=== PATIENT | female | born 1945 | race Caucasian/White ===

== ENCOUNTER 2020-03-21 09:32 | Outpatient (CLI) | payer MEDICARE, SELFPAY ==
--- NOTE | ~2020-03-21 | MM_ITS ---
EXAMINATION: MM screening [facility] w [facility] HISTORY: Screening mammogram TECHNIQUE: Craniocaudal and mediolateral oblique 3-D tomosynthesis images were obtained and synthetic 2-D images were generated. CAD analysis was submitted and interpreted. COMPARISON: 12/08/2018, 11/18/2017, 11/15/2016 bilateral digital screening mammogram examinations BREAST PARENCHYMAL COMPOSITION: There are scattered areas of fibroglandular density. FINDINGS: There is no evidence of suspicious mass, calcification, or architectural distortion to sugg est malignancy in either breast. There has been no suspicious interval change. IMPRESSION: 1. No mammographic evidence of malignancy. 2. Recommend routine screening mammography in one year. BI-RADS Category 1: Negative Reviewed, dictated and finalized at location A.
== END 2020-03-21 09:33 | disposition home or self-care (01) ==
LOC: ANHIMG 09:43
PROVIDERS: PCP Nurse Practitioner Family; Visit Provider Nurse Practitioner Family
DX: Z12.31 Encounter for screening mammogram for malignant neoplasm of breast (principal)
CPT/HCPCS: 77063; 77067

== ENCOUNTER 2020-06-29 10:09 | Emergency (ER) | payer MEDICARE, SELFPAY ==
--- NOTE | ~2020-06-29 | XR_ITS ---
EXAMINATION: XR toe 2nd LT min 2V EXAM DATE: 06/29/2020 10:30 INDICATION: Initial encounter following injury, with pain of the left 2nd toe. Kicked bed 3 weeks ag o, persistent pain. TECHNIQUE: Left 2nd toe frontal, lateral and oblique projections obtained and reviewed. There is n o prior study for comparison. FINDINGS: Acute closed posttraumatic fracture of the left 2nd proximal phalangeal head extending int o the proximal interphalangeal joint. There is overlying soft tissue swelling. Only about 1 mm gap be tween the fracture fragments. No other suspicious findings. IMPRESSION: Left 2nd proximal phalangeal head intra-articular fracture. Reviewed, dictated and finalized at location A.
[2020-06-29 10:21] VITALS: BP 110/74; PULSE 59; RESP 16; TEMP 36.4; O2SAT 100
--- NOTE | 2020-06-29 12:10 | ED.GENADULT ---
HPI - General Adult General Chief complaint: Extremity Injury, Lower Stated complaint: lt leg/2nd toe injury Source: patient Mode of arrival: ambulatory Limitations: no limitations History of Present Illness HPI narrative: Patient presents for evaluation of pain in the second digit of the left foot for the last 3 weeks. She indicates she stubbed her left foot against the post of her bed. She thought that her pain would decrease in a few days. She took aspirin with some improvement in her symptoms or after. She recently traveled to [place] to visit her son for a week. Upon returning home 8 days ago, she was still experiencing pain, which prompted her to seek medical evaluation today. Currently rates her pain as 4 on a scale of 1-10, without descriptive quality. No paresthesias. She believes that pain in the affected digit is causing problems with her gait. Related Data Home Medications Medication Instructions Recorded Confirmed lisinopril 06/29/20 pravastatin 06/29/20 Allergies Allergy/AdvReac Type Severity Reaction Status Date / Time NKDA Allergy Unknown Uncoded 12/15/07 12:37 NKFA Allergy Unknown Uncoded 12/14/07 18:04 Review of Systems Review of Systems: Narrative: CONSTITUTIONAL: Denies fever, chills, or sweats. EYES: Denies visual changes, redness, or discharge. ENT: Denies rhinorrhea, congestion, sore throat, or otalgia. CARDIOVASCULAR: Denies chest pain, palpitations, or edema. RESPIRATORY: Denies cough or dyspnea. GASTROINTESTINAL: Denies abdominal pain, nausea, vomiting, or diarrhea. GENITOURINARY: Denies dysuria or hematuria. SKIN: Denies rash or itching. MUSCULOSKELETAL: Denies back pain. Reports pain in the second digit left foot NEUROLOGIC: Denies headache, numbness, dizziness, or weakness. PSYCHIATRIC: Denies anxiety or depression. [facility] Past Medical History Medical History (Updated 06/29/20 @ 12:17 by Adrien Martin, DU, MARS) No pertinent past medical history Surgical History Surgical History No pertinent past surgical history Family History Family History Mother No pertinent past medical history Father No pertinent past medical history Social History Social History Smoking status: Never smoker Alcohol intake: current Alcohol use details: social Substance use: never Living arrangements: with family Gender identity (if verbalized by the patient): Female Sexual Orientation (if Verbalized by the Patient): Straight or Heterosexual Exam Narrative: Exam Narrative: GENERAL: Well-appearing, well-nourished, and in no acute distress. HEAD: Normocephalic, atraumatic. EYES: PERRLA and EOMI. ENT: Nares clear, no rhinorrhea or epistaxis. Mucous membranes moist. Oropharynx without tonsillar hypertrophy exudate or other lesions. Bilateral TMs pearly garcia nonbulging NECK: Supple. No adenopathy or masses. No carotid bruits or JVD CHEST: Clear to auscultation. No respiratory distress. No wheezes rales or rhonchi HEART: Regular rate and rhythm. No murmur heard. Normal peripheral pulses. ABDOMEN: Soft, nontender, nondistended, normal active bowel sounds. EXTREMITIES: Normal range of motion. Tenderness in proximal phalanx of 2nd digit of left foot SKIN: Warm, dry, no rash. NEURO: No focal deficits. Alert and oriented x3. PSYCH: Normal mood and affect. Course Course Emergency Course: This is a 74-year-old female who presents for evaluation of pain in the second digit of the left foot after stubbing her toe against her bed 3 weeks ago. X-ray shows fracture of the second digit left toe along the proximal phalanx that is intra-articular in nature. She had second and third digits of left foot dustin taped. She was given a postop shoe. She has crutches at home. She was advised that she needs to
== END 2020-06-29 12:34 | disposition home or self-care (01) ==
PROVIDERS: Emergency Provider Nurse Practitioner; PCP Nurse Practitioner Family
DX: S92.512A Displaced fracture of proximal phalanx of left lesser toe(s), initial encounter for closed fracture (principal); W22.03XA Walked into furniture, initial encounter; Y93.9 Activity, unspecified
CPT/HCPCS: 73660; 99214; G0463

== ENCOUNTER 2020-12-12 09:59 | Outpatient (CLI) | payer MEDICARE, SELFPAY ==
--- NOTE | ~2020-12-12 | DEXA_ITS ---
Bone Density Report Name: Carlos Hassan Age: 75 Sex: Female Ethnicity: White Date of : 1945 Indication: osteopenia; height loss; postmenopausal Referring Provider: Galindo, Lisa Zuniga Study: Bone densitometry was performed. Exam Date: December 12, 2020 Accession number: [id number] Bone Density: Region BMD T-score Z-score Classification AP Spine (L1, L2) 0.736 -2.2 -0.1 Osteopenia Femoral Neck (Left) 0.572 -2.5 -0.5 Osteoporosis Total Hip (Left) 0.674 -2.2 -0.5 Osteopenia Total Hip Bilateral Avg 0.683 -2.1 -0.5 Osteopenia Femoral Neck (Right) 0.548 -2.7 -0.7 Osteoporosis Total Hip (Right) 0.691 -2.1 -0.4 Osteopenia World Health Organization criteria for BMD impression classify patients as: Normal (T-score at or above -1.0), Osteopenia (T-score between -1.0 and -2.5), or Osteoporosis (T-score at or below -2.5). 10-year Fracture Risk: FRAX not reported because: Some T-score for Spine Total or Hip Total or Femoral Neck at or below -2.5 Previous Exams: Region Exam Age BMD T-score BMD Change BMD Change Date g/cm2 vs Baseline vs Previous AP Spine(L1, L2) 12/12/2020 75 0.736 -2.2 -0.225(-23.4%) -0.033(-4.3%)* 12/08/2018 73 0.769 -1.9 -0.192(-20.0%) 0.007(1.0%) 11/18/2017 72 0.761 -2.0 -0.199(-20.8%) -0.035(-4.3%)* 10/11/2014 69 0.796 -1.7 -0.165(-17.2%) -0.027(-3.2%)# 05/20/2012 66 0.823 -1.4 -0.138(-14.4%) -0.035(-4.1%)# 10/13/2009 64 0.858 -1.1 -0.103(-10.7%) 0.004(0.5%) 03/24/2007 61 0.854 -1.1 -0.107(-11.1%) -0.018(-2.1%) 11/24/2004 59 0.872 -1.0 -0.089(-9.3%)* 0.004(0.4%) 10/25/2002 57 0.868 -1.0 -0.093(-9.6%)* -0.093(-9.6%)* 09/15/2001 56 0.961 -0.2 Total Hip(Left) 12/12/2020 75 0.674 -2.2 -0.050(-6.9%)# -0.063(-8.6%)* 12/08/2018 73 0.737 -1.7 0.014(1.9%)# 0.023(3.3%) 11/18/2017 72 0.714 -1.9 -0.010(-1.4%)# -0.003(-0.4%) 10/11/2014 69 0.717 -1.8 -0.007(-1.0%)# 0.012(1.7%)# 05/20/2012 66 0.704 -1.9 -0.020(-2.7%)# -0.016(-2.2%)# 10/13/2009 64 0.720 -1.8 -0.004(-0.5%) 0.028(4.0%)* 03/24/2007 61 0.693 -2.0 -0.031(-4.3%)* -0.020(-2.8%) 11/24/2004 59 0.712 -1.9 -0.012(-1.6%) 0.024(3.5%) 10/25/2002 57 0.688 -2.1 -0.035(-4.9%)* -0.035(-4.9%)* 09/15/2001 56 0.724 -1.8 Total Hip(Right) 12/12/2020 75 0.691 -2.1 -0.019(-2.7%)# 0.003(0.4%) 12/08/2018 73 0.689 -2.1 -0.022(-3.1%)# 0.011(1.6%) 11/18/2017 72 0.677 -2.2 -0.033(-4.6%)# -0.031(-4.4%)* 10/11/2014 69 0.708 -1.9 -0.002(-0.3%)# 0.007(1.1%)# 05/20/2012 66 0.701 -2.0 -0.010(-1.3%)# -0.002(-0.3%)# 10/13/2009 64 0.703 -2
== END 2020-12-12 10:00 | disposition home or self-care (01) ==
LOC: ANHIMG 10:01
PROVIDERS: PCP Nurse Practitioner Family; Visit Provider Nurse Practitioner Family
DX: M85.89 Other specified disorders of bone density and structure, multiple sites (principal); M81.0 Age-related osteoporosis without current pathological fracture
CPT/HCPCS: 77080

== ENCOUNTER 2022-04-09 09:48 | Outpatient (CLI) | payer MEDICARE, SELFPAY ==
--- NOTE | ~2022-04-09 | MM_ITS ---
EXAMINATION: MM screening [facility] BI w [facility] HISTORY: Screening mammogram TECHNIQUE: Craniocaudal and mediolateral oblique 3-D tomosynthesis images were obtained and synthetic 2-D images were generated. CAD analysis was submitted and interpreted. COMPARISON: 03/21/2020, 12/08/2018, 11/18/2017 BREAST PARENCHYMAL COMPOSITION: The breasts are heterogeneously dense, which may obscure small masses . FINDINGS: There is no suspicious mass, calcification, or architectural distortion to suggest malignan cy in either breast. There has been no suspicious interval change. IMPRESSION: 1. No mammographic evidence of malignancy. 2. Recommend routine screening mammography in one year. BI-RADS Category 1: Negative Reviewed, dictated and finalized at location A.
== END 2022-04-09 09:49 | disposition home or self-care (01) ==
LOC: ANHIMG 09:50
PROVIDERS: PCP Nurse Practitioner Family; Visit Provider Nurse Practitioner Family
DX: Z12.31 Encounter for screening mammogram for malignant neoplasm of breast (principal)
CPT/HCPCS: 77063; 77067

== ENCOUNTER 2022-09-25 09:04 | Emergency (ER) | payer MEDICARE, SELFPAY ==
--- NOTE | ~2022-09-25 | XR_ITS ---
EXAMINATION: XR chest 1V portable DATE: 09/25/2022 14:09 INDICATION: Loss of smell and taste. Weakness. COVID-19 exposure. TECHNIQUE: A single frontal view of the chest was obtained. COMPARISON: Chest 2 views 11/21/2007 FINDINGS: The chest demonstrates clear lungs without pneumonia, pleural effusion, or pneumothorax. Th e heart size is normal. IMPRESSION: 1. No acute cardiopulmonary disease. Reviewed, dictated and finalized at location A. TRIPPER
[2022-09-25 09:10] VITALS: BP 143/57; PULSE 63; RESP 18; TEMP 36.5; O2SAT 100
--- NOTE | 2022-09-25 09:15 | ECG_ITS ---
Measurements Intervals [place] Rate: 59 P: 31 MT: 133 QRS: 68 QRSD: 93 T: 71 QT: 411 QTc: 410 Interpretive Statements SINUS BRADYCARDIA MINOR RV CONDUCTION ABNORMALITY BORDERLINE ECG NO PREVIOUS ECG AVAILABLE FOR COMPARISON Electronically Signed On 09-25-2022 9:54:19 [employer] OFFICER by Hammad Tse M.D.
--- NOTE | 2022-09-25 12:00 | PC.NURSE ---
patient walking around lobby of waiting room without difficulty and in no distress. patient dissatisfied at this time and at the desk due to her having to wait in the lobby. patient educated that unfortunately we do not give out wait times and that there are two areas of the ED taking patients.
--- NOTE | 2022-09-25 13:00 | PC.NURSE ---
pt taken to room 22. pt states she is upset about being here and cannot answer when asked her symptoms. states she has been to her dr for this problem and had tests. pt not sure if she can stay to wait for the dr to get here. pt contacted her who is waiting in the car. decides to stay and be seen. unsure of symptoms.
--- NOTE | 2022-09-25 13:05 | ED.GENADULT ---
HPI - General Adult General Chief complaint: Unspecified Stated complaint: not eating or sleeping. losing weight. vertigo? Time Seen by Provider: 09/25/22 13:02 History of Present Illness HPI narrative: This is 77-year-old female presenting ED after she woke up and felt dizzy. The dizziness occurred when she stood up from bed. It is reproducible when she goes from sitting to standing.The patient said she spent the holidays with her family. Many of them had a viral illnesses during that time. Patient has not felt well over the last several days and has not been eating or drinking well. She denies fever, chills, nausea, vomiting, diarrhea, chest pain, difficulty breathing, abdominal pain or urinary symptoms. She came to hospital takes she woke up and felt dizzy when she stood up. Patient's has COVID. Patient is vaccinated COVID and flu. She has no other complaints. Related Data Home Medications Medication Instructions Recorded Confirmed lisinopril 10 mg tablet 06/29/20 pravastatin 20 mg tablet 06/29/20 Allergies Allergy/AdvReac Type Severity Reaction Status Date / Time No Known Allergies Allergy Verified 09/25/22 09:15 Review of Systems Review of Systems: CONSTITUTIONAL: Denies night sweats. EYES: No eye pain ENT: Denies rhinorrhea CARDIOVASCULAR: Denies palpitations RESPIRATORY: Denies hemoptysis GASTROINTESTINAL: Denies hematemesis GENITOURINARY: Denies hematuria. SKIN: Denies rash MUSCULOSKELETAL: Denies myalgia. NEUROLOGIC: Denies weakness. PSYCHIATRIC: Denies delusions [facility] Past Medical History Medical History No pertinent past medical history Surgical History Surgical History No pertinent past surgical history Family History Family History Mother No pertinent past medical history Father No pertinent past medical history Social History Social History Smoking status: Never smoker Alcohol intake: current Alcohol use details: social Substance use: never Gender identity (if verbalized by the patient): Female Sexual Orientation (if Verbalized by the Patient): Straight or Heterosexual Course Vital Signs Vital signs: Vital Signs Temperature 97.7 F 09/25/22 09:10 Pulse Rate 63 09/25/22 09:10 Respiratory Rate 18 09/25/22 09:10 Blood Pressure 143/57 H 09/25/22 09:10 Pulse Oximetry 100 09/25/22 09:10 Oxygen Delivery Room Air 09/25/22 09:10 Temperature 97.7 F 09/25/22 09:10 Pulse Rate 63 09/25/22 09:10 Respiratory Rate 18 09/25/22 09:10 Blood Pressure 143/57 H 09/25/22 09:10 Pulse Oximetry 100 09/25/22 09:10 Oxygen Delivery Room Air 09/25/22 09:10 Medical Decision Making MDM Narrative Medical decision making narrative: This is a 77-year-old female presenting ED with dizziness upon standing. She has many sick contacts at home and has had decreased oral intake over last several days. It is likely she is dehydrated. I did offer to start an IV and give her IV fluids and obtain lab work but she refused. Viral swabs, chest x-ray and EKG have been obtained. EKG interpretation: Rhythm [sinus], Rate 59, [place] -[normal], [place] -[normal], QRS [narrow], QTC [normal], T waves -[negative for concerning inversions], ST Segments - [Negative for concerning elevations] Final interpretations: Sinus bradycardia Viral swabs are negative. Chest x-ray showed no acute cardiopulmonary process. Upon re-evaluation the patient is well-appearing with stable vital signs. Her physical exam has been unremarkable. She has been drinking water during her stay here and is no longer dizzy when she stands. The patient will be discharged with return precautions. Vital Signs Vital Signs: Vital Signs Temperature 97.7 F
[2022-09-25 14:06] LABS: Influenza A QL RT-PCR Negative (Negative); Influenza B QL RT-PCR Negative (Negative); RSV RNA, RT-PCR Negative (Negative); SARS-CoV-2 RNA PCR Negative
== END 2022-09-25 15:00 | disposition home or self-care (01) ==
PROVIDERS: Emergency Provider Emergency Medicine; PCP Nurse Practitioner Family
DX: B34.9 Viral infection, unspecified (principal); E86.0 Dehydration; Z20.822 Contact with and (suspected) exposure to COVID-19
CPT/HCPCS: 71045; 87637; 93005; 99283

== ENCOUNTER 2025-02-12 08:25 | Inpatient (IN) | payer MEDICARE, SELFPAY ==
--- NOTE | ~2025-02-12 | CT_ITS ---
CT brain wo con Ordering provider: Paula Ontiveros MD History: 79 years Female with . fall, ecchymosis R scalp . Comparison: None. Technique: CT of the head without contrast. Radiation reduction technique utilized.The dose-length pr oduct was 1210.67 mGy-cm. FINDINGS: BRAIN PARENCHYMA AND CSF SPACES: Mild leukoaraiosis and diffuse cortical atrophy. Mild atheromatous d isease. No midline shift, mass effect or hemorrhage. The brain parenchyma and CSF spaces are otherwi se normal. VISUALIZED PARANASAL SINUSES: Well aerated. MASTOIDS: Well aerated. BONES: The bones appear intact. SOFT TISSUES: Visualized nasopharynx is normal. Superficial soft tissues are normal. IMPRESSION: No acute intracranial findings. Reviewed, dictated and finalized at location A.
--- NOTE | ~2025-02-12 | CT_ITS ---
CT cervical spine wo con Ordering provider: Paula Ontiveros MD History: . fall . Comparison: None. Technique: CT of the cervical spine was performed without contrast. Sagittal and coronal reformatted images were also obtained and reviewed. Automated exposure control and iterative reconstruction sharif hnique were employed. The dose-length product was 105.54 mGy-cm. FINDINGS: VERTEBRAE: No subluxation or acute fracture. The occipital condyles are intact. DISC SPACES: Severe narrowing of the disc C3-C4, C4-C5 and C5-C6. Multilevel facet joint disease. Mul tilevel uncovertebral joint osteoarthritic changes. Multilevel narrowing of the intervertebral foramina. PARASPINOUS SOFT TISSUES: Normal. IMPRESSION: No acute osseous abnormality cervical spine. Multilevel degenerative disc disease. Reviewed, dictated and finalized at location A.
--- NOTE | ~2025-02-12 | XR_ITS ---
XR hip BI 2V w AP pelvis 02/12/2025 09:39 Indication: Status post fall. Hip pain. Procedure: AP pelvis and 2 views each hip Comparison: 04/29/2013 Findings: Pelvic rings intact. Mild osteoarthritis of the hips. There is a nondisplaced right femoral intertrochanteric fracture. No left hip fracture is identified. Sacrum is grossly unremarkable. Pelv ic rings intact. Impression: 1: Nondisplaced right femoral intertrochanteric fracture. Reviewed, dictated and finalized at location B. Impression: 1: Nondisplaced right femoral intertrochanteric fracture.
--- NOTE | ~2025-02-12 | XR_ITS ---
EXAMINATION: XR surgery orthopedic DATE: 02/13/2025 15:47 INDICATION: Right hip intertrochanteric nailing TECHNIQUE: 6 fluoroscopic images of the right hip and femur were obtained during procedure performed by Dr. Blackwood. Radiologist was not present for the imaging or procedure. The amount of fluoroscopy t susan used during this procedure was 0.6 minutes. Total DAP was 0.934 Gycm^2. COMPARISON: None. FINDINGS: Interval fixation of the previous noted intratrochanteric fracture with a long antegrade intramedulla ry matt distal metaphysis of the femur and with femoral neck dynamic compression screw and subtrochant tavon interlocking screw. Fracture remains nondisplaced in essentially anatomic alignment. Mild osteoa rthritis at the right hip. IMPRESSION: 1. Near-anatomic alignment post internal fixation of an intertrochanteric fracture the proximal right femur. See procedure note for further detail. Reviewed, dictated and finalized at location A. IMPRESSION: 1. Near-anatomic alignment post internal fixation of an intertrochanteric fract ure the proximal right femur. See procedure note for further detail.
[2025-02-12 08:26] VITALS: BP 139/43; PULSE 62; RESP 16; TEMP 36.5; O2SAT 100
--- NOTE | 2025-02-12 08:42 | ED_ITS ---
HPI - Fall General Chief Complaint: Fall Stated Complaint: fall-hip pain Time Seen by Provider: 02/12/25 08:29 Source: patient, EMS and RN notes reviewed Mode of arrival: EMS Limitations: dementia History of Present Illness HPI Narrative: Patient presents after reported he sustained tonight. She initially complained of hip pain but now can not recall which hip. It was reported that she fell on her buttocks. Unable to ambulate. History of dementia for which she is confused at baseline. EMS had POC blood glucose 94mg/dL. Not on anticoagulation. Patient unable to provide much history. She is very agitated and tearful. Crying for Aurelio as well as her mother and father. Will occasionally start sentences but then the ends of the sentences do not correlate. Related Data Home Medications ?Medication ?Instructions ?Recorded ?Confirmed ?Last Taken ?Type pravastatin 20 mg tablet 20 mg PO DAILY 06/29/20 02/12/25 02/11/25 History alendronate 70 mg tablet 70 mg PO WEEKLY 02/12/25 02/12/25 Unknown History escitalopram oxalate 20 mg tablet 20 mg PO DAILY 02/12/25 02/12/25 02/11/25 History memantine 5 mg tablet 10 mg PO DAILY 02/12/25 02/12/25 02/11/25 History mirtazapine 15 mg tablet 15 mg PO DAILY 02/12/25 02/12/25 02/11/25 History quetiapine 25 mg tablet 25 mg PO PRN PRN complex 02/12/25 02/12/25 02/11/25 History quetiapine 50 mg tablet 50 mg PO PRN PRN complex 02/12/25 02/12/25 02/11/25 History Allergies Allergy/AdvReac Type Severity Reaction Status Date / Time No Known Allergies Allergy Verified 02/12/25 14:23 [facility] Past Medical History Medical History Dementia History of colon cancer Early satiety Weight loss Surgical History Surgical History H/O left hemicolectomy Family History Family History Mother No pertinent past medical history Father No pertinent past medical history Social History Social History Smoking status: Former smoker Alcohol intake: never Alcohol use details: social Substance use: never Living arrangements: with family Additional living arrangements comments: Occupation/Education: retired Gender identity (if verbalized by the patient): Female Sexual Orientation (if Verbalized by the Patient): Straight or Heterosexual Spiritual care concerns: No Exam 2 Narrative: GENERAL: Thin, in mild acute distress. HEAD: Faintly blue along right sabianist though questionable ecchymosis versus visualization of veins through burton tissue - patient moving head too much to discern. EYES: Non injected, non icteric ENT: Nares clear, no rhinorrhea or epistaxis. NECK: Supple. CHEST: Speaking in full sentences. No respiratory distress. Lungs clear to auscultation bilaterally. HEART: Regular rate and rhythm. . ABDOMEN: Soft, nondistended. No TTP. EXTREMITIES/PELVIS: No acute bony deformity/crepitus. Pelvis stable to compression. No Tenderness to palpation of bilateral hips. SKIN: Warm, dry, no rash. NEURO: No focal deficits. Alert and oriented to self. PSYCH: Congruent mood and affect. Tearful, scared, repeatedly asking for Aurelio as well as mother and father Course Vital Signs Vital signs: Vital Signs Temperature 97.7 F 02/12/25 08:26 Pulse Rate 62 02/12/25 08:26 Respiratory Rate 16 02/12/25 08:26 Blood Pressure 139/43 L 02/12/25 08:26 Pulse Oximetry 100 02/12/25 08:26 Oxygen Delivery Room Air 02/12/25 08:26 Temperature 97.7 F 02/13/25 05:36 Pulse Rate 64 02/13/25 05:36 Respiratory Rate 19 02/13/25 05:36 Blood Pressure 134/65 02/13/25 05:36 Pulse Oximetry 99 02/13/25 05:36 Oxygen Delivery Room Air 02/12/25 20:00 MDM - Fall MDM Narrative Medical decision making narrative: Patient presents after a reported fall occurring last evening in which she reportedly fell on her buttocks. In the emergency department she is afebrile with vital signs notable for a low diastolic blood pressure. Mean arterial pressure 75 mm Hg however. Patient appears to be in a fair amount of distress secondary to her dementia and resultant confusion. It does not appear related to pain at this time although patient had been given acetaminophen. Patient continually asking for her mother, father, and Aurleio. She is praying and asking for help. For anxiolysis, a small dose of PO Ativan is ordered. Patient has an intertrochanteric fracture. Morphine and Guallpa ordered as are labs. On-call orthopedic surgeon, swapnil Garces. Spoke with ortho RIK who recommends admit to hospitalist. Normocytic anemia, stable from previous. Patient's PMH updated as best as possible but limited history at this time as she is coming from home. Will need to discuss further with . Code status unknown; will default to full code. Lab Data Attestation: I reviewed the patient's lab results. 02/13/25 05:52 02/13/25 05:52 Labs: Lab Results 02/12/25 Range/Units 09:08 WBC 9.0 (4.5-10.0) K/mm3 RBC 3.99 L (4.2-5.4) M/mm3 Hgb 11.9 L (12.0-15.0) g/dL Hct 35.4 L (37.0-47.0) % MCV 88.7 (80-100) fl MCH 29.8 (26-34) pg MCHC 33.6 (32-36) g/dl RDW 12.9 (11.5-14.5) % Plt Count 173 (150-375) k/mm3 MPV 9.9 (7.4-10.4) fl Immature Gran % (Auto) 0.4 (0-0.5) % Neut % (Auto) 83.6 H (45.5-73.1) % Lymph % (Auto) 8.3 L (18.3-44.2) % Barry % (Auto) 7.0 (2.6-8.5) % Eos % (Auto) 0.4 (0-4.4) % Baso % (Auto) 0.3 (0.2-1.2) % Lymph # (Auto) 0.75 L (0.9-3.2) K/mm3 Barry # (Auto) 0.6 (0.1-0.6) K/mm3 Eos # (Auto) 0.0 (0-0.3) K/mm3 Baso # (Auto) 0.0 (0.0-0.1) K/mm3 Abs Immat Gran (auto) 0.04 H (0.00-0.031) K/mm3 Absolute Neuts (auto) 7.5 H (1.3-6.7) K/mm3 Absolute Nucleated RBC 0.000 (0.0-0.012) K/mm3 Nucleated RBC % 0.0 (0.0-0.2) % PT 13.4 (11.1-14.7) Seconds INR 1.0 APTT 26.9 (22.3-36.8) Seconds Sodium 140 (137-145) mmol/L Potassium 3.6 (3.4-5.0) mmol/L Chloride 109 H (98-107) mmol/L Carbon Dioxide 23 (22-30) mmol/L Anion Gap 8 (4-12) mmol/L BUN 23 H (7-17) mg/dL Creatinine 0.72 (0.7-1.0) mg/dL Estim Creat Clear Calc 42 ml/min Estimated GFR > 60 (59 - ) Glucose 102 (65-110) mg/dL Calcium 9.2 (8.4-10.2) mg/dL Urine Color Yellow (Yellow) Urine Appearance Clear (Clear) Urine pH 7.0 (5.0-9.0) Ur Specific [place] 1.016 (1.001-1.035) Urine Protein Negative (Negative) mg/dL Urine Glucose (UA) Negative (Negative) mg/dL Urine Ketones Trace H (Negative) mg/dL Ur Blood (Man) Negative (Negative) Urine Nitrate Negative (Negative) Urine Bilirubin Negative (Negative) Urine Urobilinogen 0.2 (<2.0) mg/dL Leukocyte Esterase Rfl Trace H (Negative) RAMESH/UL Urine RBC 3-5 H (0-2) /hpf Urine WBC 0-5 (0-3) /hpf Ur Squamous Epith Cells None seen (Few) /hpf Urine Bacteria None seen /hpf Urine Casts 0-2 Imaging Data Attestation: I personally reviewed and interpreted this imaging study as follows: My impression: Right intertrochanteric fracture on my independent interpretation of hip/pelvis x-ray Radiologist's impression: Impressions Head CT 02/12/25 09:36 IMPRESSION: No acute intracranial findings. Cervical Spine CT 02/12/25 09:45 IMPRESSION: No acute osseous abnormality cervical spine. Multilevel degenerative disc disease. Hip/Pelvis X-Ray 02/12/25 09:46 Impression: 1: Nondisplaced right femoral intertrochanteric fracture. Discharge Plan Discharge Clinical Impression: Degenerative disc disease, cervical, Hematuria, microscopic, Normocytic anemia Fall Qualifiers: Encounter type: initial encounter Qualified Code(s): W19.XXXA - Unspecified fall, initial encounter Traumatic ecchymosis of head Qualifiers: Encounter type: initial encounter Qualified Code(s): S00.93XA - Contusion of unspecified part of head, initial encounter Closed intertrochanteric fracture of right femur Qualifiers: Encounter type: initial encounter Fracture alignment: nondisplaced Qualified Code(s): S72.144A - Nondisplaced intertrochanteric fracture of right femur, initial encounter for closed fracture Patient Disposition: Still a Patient Condition: Stable
--- OUTSIDE RECORDS SUMMARY | 2025-02-12 08:42 | XMS_ITS | Encounter Summary ---
Author Organization [facility] Address [facility] [place] [address] Care Team Providers Care Timber Management Professor Name Role Phone Gordo Harrison MD Primary Care Provider [phone] Encounter Details Date Type Department Care Team (Late Contact Info) Description 04/18/2024 avox Message Enc [facility] - [address], [address] [place] [address] [facility] Provider Updates Social History Tobacco Use Types Packs/Day Years Used Date Smoking Tobacco: Never Passive Smoke Exposure: Never Smokeless Tobacco: Never Alcohol Use Standard Drinks/Week Comments Not Currently 3.3 (1 standard drin k = 0.6 oz pure alcohol) a glass of wine or beer every once in a while PHQ-2 Answer Date Recorded Patient Health Questionnaire-2 Score 3 01/26/2024 Comments No Sex and Gender Information Value Date Recorded Sex Assigned at Not on file Legal Sex Female 3:32 PM CDT Gender Identity Not on file Sexual Orientation Not on file documented as of this encounter Plan of Treatment Upcoming Encounters Date Type Department Care Team (Late Contact Info) Description 05/30/2025 1:40 PM CDT Office Visit [facility] - [address] [place] [id number] Barry Rodriguez MD [address] [place] [id number] documented as of this encounter Visit Diagnoses Not on filedocumented in this encounter Additional Health Concerns Assessment Noted Time PHQ-9 Depression Total Score: 4 01/26/20 24 11:42 AM CDT documented as of this encounter Care Teams Timber Management Professor Relationship Specialty Start Date End Date Gordo Harrison MD [address] [id number] PCP - General INTERNAL MEDICINE 07/27/23 documented as of this encounter
--- OUTSIDE RECORDS SUMMARY | 2025-02-12 08:42 | XMS_ITS | Referral Summary ---
Author Organization [facility] Address [address] [place] [address] Care Team Providers Care Truck Safety Inspector Name Role Phone Gordo Harrison MD Primary Care Provider Ghassan Viveros MD Unavailable [phone] Beck Gruber MD Unavailable [phone] Barry Rodriguez MD Unavailable [phone] Allergies No known active allergies Medications pravastatin (PRAVACHOL) 20 mg tablet Take 20 mg by mouth daily Active cholecalciferol (VITAMIN D-3) 50,000 unit capsule Take 1 capsule (50,000 Units total) by mouth once a week Active multivitamin/ir on/folic acid (CENTRUM WOMEN ORAL) Take by mouth Active docusate sodium (COLACE) 100 mg capsuleIndicati ons:constipatio n Take 1 capsule (100 mg total) by mouth 2 (two) times a day for 7 days 14 capsule 3 Active ondansetron (ZOFRAN) 4 mg tablet Take 1 tablet (4 mg total) by mouth every 8 (eight) hours as needed for nausea or vomiting 20 tablet 3 Active Additional Information Patient not taking.Reported on 01/04/2023 acetaminophen (TYLENOL) 325 mg tablet Take 2 tablets (650 mg total) by mouth every 6 (six) hours as needed for pain Active ergocalciferol (VITAMIN D) 50,000 unit capsule Take 1 capsule (50,000 Units total) by mouth once a week 3 Active Active Problems Problem Noted Date Diagnosed Date Positive colorectal cancer screening using Colog uard test 07/12/2023 Personal history of colon cancer 03/23/2023 Encounter for screening colonoscopy 03/23/2023 Severe protein-calorie malnutrition 12/02/2022 Postoperative delirium 12/01/2022 Malignant neoplasm of sigmoid colon 10/26/2022 Assessment & Plan (01/04/2023 10:06 AM CDT): Patient has been seen by Oncology. No recommendation for further treatment. They will just follow her. Can return to diet as tolerates. No restrictions from surgical standpoint. She will call us back with any further questions or concerns. She will follow up with GI for screening colonoscopies in the future. Assessment & Plan (12/09/2022 11:44 AM CDT): We have reviewed the pathology with the patient. I will make a referral for Oncology to weigh in just to see if any further treatment would be needed. She will continue diet as tolerates. Continue to avoid heavy lifting for another few weeks. Continue bowel regimen to avoid straining. We will see her back in 4 weeks. She will call sooner if anything changes Assessment & Plan (10/26/2022 1:38 PM INDUSTRIAL HEALTH ENGINEER): We will set the patient up for staging CT scans prior to surgery. The family was concerned about the cognitive change and was wondering about a ct of the head. I will order this also in preparation for surgery. We have discussed risks and benefits of the surgery such as anastamotic leak, need for colostomy or open procedure. Final staging once pathology from resection returns as dax as no sign of metastatic disease on preop staging imaging. We have talked about length of stay in the hospital. All questions answered. Restless leg syndrome 03/11/2021 Assessment & Plan (03/11/2021 3:19 PM CDT): Ms. Carlos Hassan is a 75 y.o. female, who presents for evaluation of RLS. 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 She developed RLS symptoms in and was diagnosed last year. She already suspected she had it because her father had the same symptoms. The symptoms are uncommon, they happen every two months and include a discomfort in the legs followed by a relief after moving the legs. She did not try any medications before. In addition, she reports memory loss for recent events since last year. 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 She does not feel depressed but her son's diagnosis of Krabbe disease has had a major weight in her mood. She had meetings before with the genetic counselor in [place]. There is family history of RLS, including father. Her examination is unrevealing, except for MoCA and MMSE being low. History and examination are compatible with restless legs syndrome (RLS) and memory loss. We discussed disease pathophysiology and treatment strategies for RLS. We can check ferritin and use gabapentin as needed. Side effect, particularly sedation, was discussed in the visit. The etiology of memory loss is unclear. There is a discrepancy between her performance in the MoCA and MMSE with her high function performance at work and managing life. Mood could a contributor, but her scores in screening for anxiety and depression were normal. We discussed those findings and will check TSH and B12. Otherwise, we will continue to monitor her symptoms. Plan: 1. RLS. - Start gabapentin 100 mg in the evening as needed for RLS. Additional doses changes may be needed. - Check ferritin. 2. Memory loss. - Check vitamin B12 and TSH. - Continue to monitor symptoms. Can consider neuropsychological testing in the future. Potential medication side effects were discussed during the encounter. Memory loss 03/11/2021 Resolved Problems Problem Noted Date Diagnosed Date Resolved Date Cancer of sigmoid colon 11/29/202211/24 Positive colorectal cancer s creening using Cologuard test 09/14/2022 01/04/2023 Overview (09/14/2022): Added automatically from request for surgery [id number] Immunizations Immunization Administration Dates Next Due Influenza, Quad, Adjuvantate d, Intramuscular 07/11/2022,06/28/2021 Influenza, Quadrivalent, Hig h Dose, Preservative Free, Intrr 05/19/2020 Influenza, Quadrivalent, Spl it, Intramuscular 07/03/2017 Influenza, Trivalent, High D ose, Split, Preservative Free, Intramuscular 06/22/2021,07/18/2019,06/02/2018,08/02,07/30/2016,07/29/2015 Influenza, Trivalent, IM (MDV) 07/18/2014,2013 Influenza, Trivalent, Preser vative Free, Intramuscular 06/21/2017 Influenza, Unspecified 06/26/2022 Pfizer SARS-CoV-2 Monovalent Vaccination (12+ Yrs) PURPLE 11/28/2020,11/07/2020 Pneumococcal Conjugate PCV 13 08/14/2020 Pneumococcal Polysaccharide PPV23 11/23/2013 Tdap 02/21/2018,02/15/2018 ZOSTER Recombinant 09/24/2020 Social History Tobacco Use Types Packs/Day Years Used Date Smoking Tobacco: Never Smokeless Tobacco: Never Tobacco Cessation:Counseling Given: Not Answered Social Connection and Isolation Panel [NHANES] A nswer Date Recorded In a typical week, how many times do you talk on the phone with family, friends, or neighbors? Twice a week 12/01/2022 How often do you get together with friends or re latives? Once a week 12/01/2022 How often do you attend congregation or zoroastrian serv ices? Never 12/01/2022 Do you belong to any clubs o r organizations such as congregation groups, unions, fraternal or athletic groups, or school groups? No 12/01/2022 How often do you attend meet ings of the clubs or organizations you belong to? Never 12/01/2022 Are you , , di vorced, , never , or living with a partner? 12/01/2022 AUDIT-C Answer Date Recorded Frequency of Alcohol Consumption Not on file 08/25/2023 Q2: How many drinks containi ng alcohol do you have on a typical day when you are drinking? Patient does not drink Frequency of Binge Drinking Not on file 07/29 Overall Financial Resource Strain (CARDIA) Answe r Date Recorded How hard is it for you to pa y for the very basics like food, housing, medical care, and heating? Not hard at all 12/01/2022 Hunger Vital Sign Answer Date Recorded Within the past 12 months, y ou worried that your food would run out before you got the money to buy more. Never true 12/02/19 23 Within the past 12 months, t he food you bought just didn't last and you didn't have money to get more. Never true 12/01/2022 PRAPARE - Transportation Answer Date Re corded In the past 12 months, has l ack of transportation kept you from medical appointments or from getting medications? No 04/2023 In the past 12 months, has l ack of transportation kept you from meetings, work, or from getting things needed for daily living? No 12/01/2022 Personal Safety Answer Date Recorded Have you ever been in or are you currently in a harmful physical or emotional relationship or is someone making you feel afraid or unsafe? 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 Not on file Not on file Not on file Last Filed Vital Signs Vital Sign Reading Time Taken Comments Blood Pressure 147/60 08/26/2023 11:30 AM INDUSTRIAL HEALTH ENGINEER Pulse 57 08/26/2023 11:30 AM INDUSTRIAL HEALTH ENGINEER Temperature 37 C (98.6 F) 08/26/2023 11:30 AM INDUSTRIAL HEALTH ENGINEER Respiratory Rate 20 08/26/2023 11:30 AM INDUSTRIAL HEALTH ENGINEER Oxygen Saturation 100% 08/26/2023 11:30 AM INDUSTRIAL HEALTH ENGINEER Inhaled Oxygen Concentration - - Weight 44.9 kg (99 lb) 08/26/2023 10:20 AM INDUSTRIAL HEALTH ENGINEER Height 154.9 cm (5' 1 ) 08/26/2023 10:20 AM INDUSTRIAL HEALTH ENGINEER Body Mass Index 18.71 08/26/2023 10:20 AM INDUSTRIAL HEALTH ENGINEER Plan of Treatment Not on file Medical Devices Implanted Type Area Vocal Artist Device Identifier Shelf Expiration Date Model / Serial / Lot [employer] Weck Hem-O-Guille Ligate Nonabsorbable Cartridge Medium Large Latex Free [id number] - [id number] Implanted:Qty: 1 on 11/29/2022 by Adrien Hendrickson MD at [facility] N/A: Abdomen [employer] 08/23/2027 [id number] / / [id number] Description:2 clips implante d Procedures Procedure Name Priority Date/Time Associated Diagnosis Comments COLONOSCOPY 08/26/2023 10:11 AM INDUSTRIAL HEALTH ENGINEER from Last 3 Months or Most Recently Relevant to Health Maintenance Results * COLONOSCOPY (08/26/2023 10:11 AM INDUSTRIAL HEALTH ENGINEER) Anatomical Region Laterality Modality Other Narrative Procedure Note Ghassan Viveros MD - 08/26/2023 10:11 AM CST [facility] Patient Name: Carlos Hassan Procedure Date: 08/26/2023 10:11 AM Date of : 1945 Admit Type: Outpatient Age: 78 Gender: Female Attending MD: Ghassan Viveros M.D. Room: [facility] ENDOSCOPY ROOM 2 Note Status: Finalized Patient Profile: Refer to note in patient chart for documentation of history and physical. Procedure: Colonoscopy Indications: High risk colon cancer surveillance: Personalhistory of colon cancer, Last colonoscopy: September 2022 Referring MD: Gordo Harrison M.D. Providers: Ghassan Viveros M.D. Impression: - Hemorrhoids found on perianal exam. - Patent end-to-side colo-colonic anastomosis, characterized by healthy appearing mucosa. - The examination was otherwise normal. - No specimens collected. Recommendation: - Discharge patient to home. - Resume previous diet. - Continue present medications. - Repeat colonoscopy in 3 years for surveillance. - Return to primary care physician as previously scheduled. Medicines: Propofol per Anesthesia Complications: No immediate complications. Estimated Blood Loss: Estimated blood loss: none. Procedure: Pre-Anesthesia Assessment: - This assessment was completed [Time ofAssessment] prior to the administration of sedation. The benefits, risks and alternatives of theprocedure and sedation were discussed and informed consentwas obtained. All questions were answered. Please referto the signed informed consent document in the medical record. The bowel preparation used was Miralax via single dose instruction. The bowel preparation used was bisacodyl tablets via single dose instruction.The scope was passed under direct vision. The Pediatric Colonoscope PCF-H190L [id number] was introducedthrough the anus and advanced to the the cecum, identifiedby appendiceal orifice and ileocecal valve. The colonoscopy was performed without difficulty. The patient tolerated the procedure well. The qualityof the bowel preparation was excellent. The ileocecal valve, appendiceal orifice, and rectum were photographed. Findings: Hemorrhoids were found on perianal exam. There was evidence of a prior end-to-side colo-colonic anastomosis in the sigmoid colon. This was patent and was characterized by healthy appearing mucosa. The anastomosis was traversed. The exam was otherwise without abnormality. Electronically signed by Ghassan Viveros M.D. Ghassan Viveros M.D. 08/26/2023 10:56:55 AM Number of Addenda: 0 Note Initiated On: 08/26/2023 10:11 AM Procedure Code(s): --- Professional --- G0105, Colorectal cancer screening; colonoscopy on individual at high risk --- Technical --- G0105, Colorectal cancer screening; colonoscopy on individual at high risk Diagnosis Code(s): --- Professional --- Z98.0, Intestinal bypass and anastomosis status K64.9, Unspecified hemorrhoids Z85.038, Personal history of other malignant neoplasm of largeintestine --- Technical --- Z98.0, Intestinal bypass and anastomosis status K64.9, Unspecified hemorrhoids Z85.038, Personal history of other malignant neoplasm of largeintestine CPT copyright 2020 [employer]. All rights reserved. The codes documented in this report are preliminary and upon paramedic supervisor reviewmay be revised to meet current compliance requirements. Recognized by the [employer] for promoting quality in endoscopy Ghassan Viveros MD ENDOSCOPY PROCEDURES Final Re sult from Last 3 Months or Most Recently Relevant to Health Maintenance Insurance [facility] MEDICARE [employer] MEDICARE AET[employer] MEDICARE Advance Directives For more information, please contact: [phone] * Full Code (Latest Code Status on File) Date Activated Date Inactivated Comments 08/26/2023 10:13 AM 08/26/2023 4:03 PM * Full Code Date Activated Date Inactivated Comments 08/26/2023 10:13 AM 08/26/2023 10:13 AM * Full Code Date Activated Date Inactivated Comments 11/29/2022 12:43 PM 12/02/2022 7:42 PM * Full Code Date Activated Date Inactivated Comments 10/21/2022 10:30 AM 10/21/2022 4:32 PM * Full Code Date Activated Date Inactivated Comments 10/21/2022 10:30 AM 10/21/2022 10:30 AM Care Teams Truck Safety Inspector Relationship Specialty Start Date End Date Gordo Harrison MD [address] [place] [phone] PCP - General Internal Medicine 10/21/22 Ghassan Viveros MD [address] [place] [address] [address] [place] [address] Consulting Physician Gastroenterology 10/27/22 Beck Gruber MD [address] [place] [address] [place] [address] Medical Oncologist/Hematologi Hematology and Oncology 12/23/22 Barry Rodriguez MD [address] [place] [address] Referring Physician Neurology 04/17/24
--- OUTSIDE RECORDS SUMMARY | 2025-02-12 08:42 | XMS_ITS | Encounter Summary ---
Author Organization [facility] Address [facility] [place] [address] Care Team Providers Care Rooms Director Name Role Phone Gordo Harrison MD Primary Care Provider [phone] Encounter Details Date Type Department Care Team (Late Contact Info) Description 01/10/2025 MyChart Message Enc [facility] Neurology Speciality [address] [phone] Barry Rodriguez MD [address] [place] [phone] Letter of diagnosis and prognosis Social History Tobacco Use Types Packs/Day Years Used Date Smoking Tobacco: Never Passive Smoke Exposure: Never Smokeless Tobacco: Never Alcohol Use Standard Drinks/Week Comments Not Currently 3.3 (1 standard drin k = 0.6 oz pure alcohol) a glass of wine or beer every once in a while PHQ-2 Answer Date Recorded Patient Health Questionnaire-2 Score 1 12/24/2024 Comments No Sex and Gender Information Value Date Recorded Sex Assigned at Not on file Legal Sex Female 3:32 PM CDT Gender Identity Not on file Sexual Orientation Not on file documented as of this encounter Plan of Treatment Upcoming Encounters Date Type Department Care Team (Late Contact Info) Description 05/30/2025 1:40 PM CDT Office Visit [facility] Neurology Speciality [address] [place] [address] Barry Rodriguez MD [address] [place] [address] documented as of this encounter Visit Diagnoses Not on filedocumented in this encounter Additional Health Concerns Assessment Noted Time PHQ-9 Depression Total Score: 4 01/26/20 24 11:42 AM CDT documented as of this encounter Care Teams Rooms Director Relationship Specialty Start Date End Date Gordo Harrison MD [address] [place] [phone] PCP - General INTERNAL MEDICINE 07/27/23 documented as of this encounter
--- OUTSIDE RECORDS SUMMARY | 2025-02-12 08:42 | XMS_ITS | Encounter Summary ---
Author Organization [facility] Address [facility] [place] [address] Care Team Providers Care Repairer Pump Name Role Phone Gorod Harrison MD Primary Care Provider [phone] Encounter Details Date Type Department Care Team (Latest Contact Info) Description 01/27/2024 MyChart Message Enc [facility] Neurology Speciality [address] [phone] Barry Rodriguez MD [address] [place] [address] [facility] Social History Tobacco Use Types Packs/Day Years [...] Encounters Date Type Department Care Team (Late st Contact Info) Description 05/30/2025 1:40 PM CDT Office Visit [facility] Neurology Speciality [address] [place] [address] Barry Rodriguez MD [address] [place] [address] documented as of this encounter Visit Diagnoses Not on filedocumented in this encounter Additional Health Concerns Assessment Noted Time PHQ-9 Depression Total Score: 4 01/26/20 24 11:42 AM CDT documented as of this encounter Care Teams Repairer Pump Relationship Specialty Start Date End Date Gordo Harrison MD [address] [place] [phone] PCP - General INTERNAL MEDICINE 07/27/23 documented as of this encounter
--- OUTSIDE RECORDS SUMMARY | 2025-02-12 08:42 | XMS_ITS | Clinical Summary ---
Author Organization [facility] Address [address] [place] [address] Care Team Providers Care Experimental Physicist Name Role Phone Gordo Harrison MD Primary Care Provider Allergies Active Allergy Reactions Criticality Noted Date Comments Poison Mandy Extract Itching 10/25/2023 Medications vitamin D3, cholecalciferol, (CHOLECALCIFEROL ) 1.25 mg capsule Take 1 capsule (50,000 Units total) by mouth once a week. Active pravastatin (PRAVACHOL) 20 MG tablet Take 1 tablet (20 mg total) by mouth daily. Active escitalopram (LEXAPRO) 20 MG tablet Take 1 tablet (20 mg total) by mouth daily. 12/25/2023 Active alendronate (FOSAMAX) 70 MG tablet Take 1 tablet (70 mg total) by mouth once a week. 11/29/2023 Active mirtazapine (REMERON) 15 MG tablet Take 1 tablet (15 mg total) by mouth. 07/10/2024 Active memantine (NAMENDA) 5 MG tabletIndication s:Dementia without behavioral disturbance (CMS/HCC) Take 1 tablet (5 mg total) by mouth 2 (two) times daily. 60 tablet 11 08/14/2024 Active QUEtiapine (SEROQUEL) 25 MG tabletIndication s:Dementia without behavioral disturbance (CMS/HCC) Take 1 tablet (25 mg total) by mouth nightly as needed. 30 tablet 11 08/14/2024 Active QUEtiapine (SEROQUEL) 50 MG tabletIndication s:Agitation due to dementia (CMS/HCC) Take 1 tablet (50 mg total) by mouth nightly at bedtime. 30 tablet 11 01/28/2025 Active Active Problems Problem Noted Date Diagnosed Date Fatigue 01/26/2024 Hyperlipidemia 01/26/2024 Pain in limb 01/26/2024 Osteoarthrosis 01/26/2024 Neuropathy 01/26/2024 Pain in throat 01/26/2024 Posterior rhinorrhea 01/26/2024 Sciatica 01/26/2024 Shoulder pain 01/26/2024 Upper respiratory infection 01/26/2024 Sinusitis 01/26/2024 Inflammatory disorder of lower extremity 024 Depressive disorder 11/28/2023 Senile osteoporosis 11/28/2023 Carcinoma of colon (CMS/HCC HHS/HCC) 07/26/2023 Impaired cognition 07/26/2023 Mild neurocognitive disorder 07/26/2023 Personal history of colon cancer 03/23/2023 Severe protein-calorie malnutrition (HHS/HCC) Postoperative delirium 12/01/2022 Positive colorectal cancer screening using Colog uard test 08/31/2022 Restless leg syndrome 03/11/2021 Overview (01/26/2024): Last Assessment & Plan: Ms. Carlos Hassan is a 75 y.o. [...] meetings before with the genetic counselor in [place]. There is family history of RLS, including [...] side effects were discussed during the encounter. Strain of neck muscle 02/20/2021 Vitamin D deficiency 04/25/2020 Essential hypertension 04/01/2020 Osteopenia 11/23/2017 Menopausal symptom 10/06/2017 Resolved Problems Problem Noted Date Diagnosed Date Resolved Date Disorder of bursae of shoulder region 01/26/2024 12/24/2024 Fever 01/26/2024 12/24/2024 Hematuria 01/26/2024 12/24/2024 Encounter for screening colonoscopy 03/23/2023 01/30/2024 Family history of diabetes mellitus 03/04/2017 12/24/2024 Encounters Date Type Department Care Team Description 02/11/2025 MyChart Message [facility] - [place] [id number] [place] [address] Barry Rodriguez MD Benna's Behavior 01/29/2025 MyChart Message [facility] - [place] [address] [place] [address] Barry Rodriguez MD Diagnosis and medication 01/25/2025 MyChart Message [facility] - [place] [address] [place] [address] Barry Rodriguez MD Medication 01/25/2025 MyChart Message [facility] - [place] [id number] [facility] [address] [address] [place] [address] Barry Rodriguez MD Letter 01/10/2025 MyChart Message Enc [facility] - [place] [address] [facility] [place] [address] Barry Rodriguez MD Letter of diagnosis and prognosis 12/24/2024 2:40 PM CDT Office Visit [facility] Multispecialty Care - [address], [address] [place] [address] Barry Rodriguez MD Follow Up (Dementia) 12/24/2024 Travel from Last 3 Months Family History Medical History Relation Comments Prostate Cancer Father No Known Problems Mother Lymphoma Sister 1 Cancer Sister 2 Relation Status Comments Father Mother Alive Sister 1 Alive Sister 2 Alive Social History Tobacco Use Types Packs/Day Years Used Date Smoking Tobacco: Never Passive Smoke Exposure: Never Smokeless Tobacco: Never Tobacco Cessation:Counseling Given: Yes Alcohol Use Standard Drinks/Week Comments Not Currently [...] on file Sexual Orientation Not on file Last Filed Vital Signs Vital Sign Reading Time Taken Comments Blood Pressure 138/82 12/24/2024 2:38 PM CDT Pulse 56 12/24/2024 2:38 PM CDT Temperature 37 C (98.6 F) 12/24/2024 2:38 PM CDT Respiratory Rate 14 12/24/2024 2:38 PM CDT Oxygen Saturation 98% 12/24/2024 2:38 PM CDT Inhaled Oxygen Concentration - - Weight 45.8 kg (101 lb) 12/24/2024 2:38 PM CDT Height 154.9 cm (5' 1 ) 12/24/2024 2:38 PM CDT Body Mass Index 19.08 12/24/2024 2:38 PM CDT Plan of Treatment Upcoming Encounters Date Type Department Care Team (Late st Contact Info) Description 05/30/2025 1:40 PM CDT Office Visit [facility] - [place] [address] [facility] [address] [place] [address] Barry Rodriguez MD [address] [place] [address] Health Maintenance Due Date Last Done Comments Hepatitis C 1963 Annual Medicare Wellness Visit 2012 Dexa Scan (General) 2012 Zoster Vaccines (2 of 2) 11/19/2020 09/24/2020, 08/28 COVID-19 Vaccine ( season) 2024 07/12/2023, 06/30/2023, 03/30/2023, Additional history exists DTaP, Tdap and Td Vaccines (3 - Td or Tdap) 02/22/2028 02/21/2018, 02/15/2018 Pneumococcal Vaccine: 50+ Years Completed 08/14/2020, 11/23/2013 RSV Immunization or 60+ Years Completed 10/07/2023 PHQ-2 (Physician Archer) Completed 12/24/2024 Meningococcal B Vaccine Aged Out No l onger eligible based on patient's age to complete this topic Meningococcal Vaccine Aged Out No dax kayli eligible based on patient's age to complete this topic RSV Immunizations Under 20 Months Aged Out No longer eligible based on patient's age to complete this topic Insurance [employer] Care Teams Experimental Physicist Relationship Specialty Start Date End Date Gordo Harrison MD [address] [phone] PCP - General INTERNAL MEDICINE 07/27/23
--- OUTSIDE RECORDS SUMMARY | 2025-02-12 08:42 | XMS_ITS | Encounter Summary ---
Author Organization [facility] Address [facility] [place] [address] Care Team Providers Care Floor Winder Name Role Phone Gordo Harrison MD Primary Care Provider [phone] Encounter Details Date Type Department Care Team (Late Contact Info) Description 03/25/2024 MyChart Message Enc [facility] Neurology Speciality [address] [place] [phone] Barry Rodriguez MD [address] [place] [address] Carlos Hassan Social History Tobacco Use Types Packs/Day Years [...] Description 05/30/2025 1:40 PM CDT Office Visit [facility] Neurology Speciality [address] [place] [phone] Barry Rodriguez MD [address] [place] [address] documented as of this encounter Visit Diagnoses Not on filedocumented in this encounter Additional Health Concerns Assessment Noted Time PHQ-9 Depression Total Score: 4 01/26/20 24 11:42 AM CDT documented as of this encounter Care Teams Floor Winder Relationship Specialty Start Date End Date Gordo Harrison MD [address] [place] [phone] PCP - General INTERNAL MEDICINE 07/27/23 documented as of this encounter
--- OUTSIDE RECORDS SUMMARY | 2025-02-12 08:42 | XMS_ITS | Encounter Summary ---
Author Organization [facility] Address [facility] [place] [address] Care Team Providers Care Senior Manufacturing Supervisor Name Role Phone Gordo Harrison MD Primary Care Provider [phone] Encounter Details Date Type Department Care Team (Latest Contact Info) Description 01/25/2024 MyCL & C Groceryt Message Enc [facility] Neurology Speciality Clinic - [address] [place] [phone] Barry Rodriguez MD [address] [place] [address] Observations on Carlos Hassan by Social History Tobacco Use Types Packs/Day Years [...] on file documented as of this encounter Functional Status * Over the past 2 weeks, how often have you been bothered by any of the following problems? Question Answer Date of Assessment Author Status Little interest or pleasure in doing things Nearly every day 01/26/2024 11:42 AM CDT Jack Le MA Active Feeling down, depressed, or hopeless Not at all 01/26/2024 11:42 AM Jack Cuenca MA Active Patient Health Questionnaire-2 Score 3 01/26/2024 11:42 AM Jack Cuenca MA Active * Question Answer Date of Assessment Author Status Trouble falling or staying asleep, or sleeping too much Several days 01/26/2024 11:42 AM LONNIET Jack Le MA Active Feeling tired or having little energy Not at all 01/26/2024 11:42 AM LONNIET Jack Le MA Active Poor appetite or overeating Not at all 01/26/2024 11:42 AM Jack Cuenca MA Active Feeling bad about yourself - or that you are a failure or have let yourself or your family down Not at all 01/26/2024 11:42 AM Jack Cuenca MA Active Trouble concentrating on things, such as reading the newspaper or watching television Not at all 01/26/2024 11:42 AM LONNIET Jack Le MA Active Moving or speaking so slowly that other people could have noticed? Or the opposite - being so fidgety or restless that you have been moving around a lot more than usual. Not at all 01/26/2024 11:42 AM Jack Cuenca MA Active Thoughts that you would be better off or hurting yourself in some way Not at all 01/26/2024 11:42 AM LONNIET Jack Le MA Active Patient Health Questionnaire-9 Score 4 01/26/2024 11:42 AM CDT Jack Le MA Active documented as of this encounter Plan of Treatment Upcoming Encounters Date Type Department Care Team (Late st Contact Info) Description 05/30/2025 1:40 PM CDT Office Visit [facility]ity Clinic - [address] [place] [address] Barry Rodriguez MD [address] [place] [address] documented as of this encounter Visit Diagnoses Not on filedocumented in this encounter Care Teams Senior Manufacturing Supervisor Relationship Specialty Start Date End Date Gordo Harrison MD [address] [phone] PCP - General INTERNAL MEDICINE 07/27/23 documented as of this encounter
--- OUTSIDE RECORDS SUMMARY | 2025-02-12 08:42 | XMS_ITS | Encounter Summary ---
Author Organization [facility] Address [address] [place] [address] Care Team Providers Care Pelt Shearer Name Role Phone Gordo Harrison MD Primary Care Provider [phone] Encounter Details Date Type Department Care Team (Latest Contact Info) Description 07/05/2024 MyChart Message Enc [facility] Multispecialty Care - [facility] [address] [facility], [address] [place] [phone] Barry Rodriguez MD [address] [place], [place] [phone] Or[place]olaney Mo neuropsychological test Social History Tobacco Use Types Packs/Day Years [...] Description 05/30/2025 1:40 PM CDT Office Visit [facility] Neurology Speciality Clinic - [place] [address] [facility] [address] [place] [address] Barry Rodriguez MD [address] [place] [address] documented as of this encounter Visit Diagnoses Not on filedocumented in this encounter Additional Health Concerns Assessment Noted Time PHQ-9 Depression Total Score: 4 01/26/20 24 11:42 AM CDT documented as of this encounter Care Teams Pelt Shearer Relationship Specialty Start Date End Date Gordo Harrison MD [address] [facility] [address] [place] [address] PCP - General INTERNAL MEDICINE 07/27/23 documented as of this encounter
--- OUTSIDE RECORDS SUMMARY | 2025-02-12 08:42 | XMS_ITS | Encounter Summary ---
Author Organization [facility] Address [facility] [place] [address] Care Team Providers Care Terrazzo Installer Name Role Phone Gordo Harrison MD Primary Care Provider [phone] Encounter Details Date Type Department Care Team (Late Contact Info) Description 02/11/2025 MyChart Message Enc [facility] Neurology Speciality [address] [place] [address] [address] Barry Rodriguez MD [address] [place] [address] Carlos'marisela Behavior Social History Tobacco Use Types Packs/Day Years [...] Description 05/30/2025 1:40 PM CDT Office Visit [facility] Neurology Speciality [address] [place] [address] [place] [address] Barry Rodriguez MD [address] [place] [address] documented as of this encounter Visit Diagnoses Not on filedocumented in this encounter Additional Health Concerns Assessment Noted Time PHQ-9 Depression Total Score: 4 01/26/20 24 11:42 AM CDT documented as of this encounter Care Teams Terrazzo Installer Relationship Specialty Start Date End Date Gordo Harrison MD [address] [place] [phone] PCP - General INTERNAL MEDICINE 07/27/23 documented as of this encounter
--- OUTSIDE RECORDS SUMMARY | 2025-02-12 08:42 | XMS_ITS | Clinical Summary ---
Author Organization [facility] Address [address] [place] [address] Care Team Providers Care Regulatory Consultant Name Role Phone Gordo Harrison MD Primary Care Provider Source Comments [facility],non-owned Affiliates and Associated Physician Practices is amultiple site organization consisting of ambulatory clinics and hospital sitesin [place], [place], [place] and [place]. This disclosure is being madepursuant to the Care Everywhere program and may not contain all information available regarding this patient. Last updated 18.[facility] [employer] Social History Tobacco Use Types Packs/Day Years Used Date Smoking Tobacco: Never Assessed Comments Unknown Sex and Gender Information Value Date Recorded Sex Assigned at Not on file Legal Sex Female 8:18 AM SENIOR SALES ADMINISTRATOR Gender Identity Female 11/10/2023 8:31 AM SENIOR SALES ADMINISTRATOR Sexual Orientation Straight 11/10/2023 8: 31 AM SENIOR SALES ADMINISTRATOR Plan of Treatment Health Maintenance Due Date Last Done Comments BONE DENSITY TESTING 1945 HEPATITIS C SCREENING 08/14/1963 DTAP/TDAP/TD VACCINES (1 - Tdap) 1966 PNEUMOCOCCAL VACCINE 50+ (1 of 1 - PCV) 1997 ZOSTER VACCINE (1 of 2) 1997 Respiratory Syncytial Virus (RSV) Vaccine Pt: or over 60 yrs (1 - 1-dose 75+ series) 2022 COVID-19 VACCINE ( - 2023- season) 2024 04/13/2022, 11/28/2020, 11/07/2020 DEPRESSION SCREENING 09/26/2024 MEDICARE AWV CALENDAR YEAR 2024 INFLUENZA VACCINE (Season Ended) 2025 07/12/2023, 06/26/2022, 06/22/2021, Additional history exists HEPATITIS B VACCINE Aged Out No longe r eligible based on patient's age to complete this topic HIB VACCINE Aged Out No longer eligi ble based on patient's age to complete this topic HPV VACCINE Aged Out No longer eligi ble based on patient's age to complete this topic MENINGOCOCCAL (Group B) VACCINE SHARED DECISION-MAKING Aged Out No longer eligible based on patient's age to complete this topic MENINGOCOCCAL GROUPS A/C/Y/W VACCINE Aged Out No longer eligible based on patient's age to complete this topic Insurance [employer] MEDICARE ADV AETNA MEDICARE ADV Care Teams Regulatory Consultant Relationship Specialty Start Date End Date Harrison, Gordo T, MD [address] [place] [address] [address] [place] [address] PCP - General Internal Medicine 11/10/23
--- OUTSIDE RECORDS SUMMARY | 2025-02-12 08:42 | XMS_ITS | Encounter Summary ---
Author Organization [facility] Address [facility] [place] [address] Care Team Providers Care Automation Technician Name Role Phone Gordo Harrison MD Primary Care Provider [phone] Encounter Details Date Type Department Care Team (Late Contact Info) Description 11/03/2023 [email or web address] Message Enc [facility] - [address], [address] [place] [address] [facility], [facility] Provider results Social History Tobacco Use Types Packs/Day Years Used Date Smoking Tobacco: Never Passive Smoke Exposure: Never Smokeless Tobacco: Never Alcohol Use Standard Drinks/Week Comments Not Currently 3.3 (1 standard drin k = 0.6 oz pure alcohol) a glass of wine or beer every once in a while Comments No Sex and Gender Information Value Date Recorded Sex Assigned at Not on file Legal Sex Female 3:32 PM CDT Gender Identity Not on file Sexual Orientation Not on file documented as of this encounter Plan of Treatment Upcoming Encounters Date Type Department Care Team (Late Contact Info) Description 05/30/2025 1:40 PM CDT Office Visit [facility] - [address] [place] [id number] Barry Rodriguez MD [address] [place] [id number] documented as of this encounter Visit Diagnoses Not on filedocumented in this encounter Care Teams Automation Technician Relationship Specialty Start Date End Date Gordo Harrison MD [address] [address] PCP - General INTERNAL MEDICINE 07/27/23 documented as of this encounter
--- OUTSIDE RECORDS SUMMARY | 2025-02-12 08:42 | XMS_ITS | Clinical Summary ---
Author Organization [facility] Address [address] [place] [address] Care Team Providers Care Senior Staff Accountant Name Role Phone Gordo Harrison MD Primary Care Provider Ghassan Viveros MD Unavailable [phone] Beck Gruber MD Unavailable [phone] Barry Rodriguez MD Unavailable [phone] Allergies No known active allergies Medications pravastatin [...] changes Assessment & Plan (10/26/2022 1:38 PM HOLE DIGGER TRUCK DRIVER): We will set the patient up for [...] (09/14/2022): Added automatically from request for surgery [id number] Immunizations Immunization Administration Dates Next Due Influenza, [...] PPV23 11/23/2013 Tdap 02/21/2018,02/15/2018 ZOSTER Recombinant 09/24/2020 Surgical History Surgery Date Site/Laterality Comments COLONOSCOPY unsure COLONOSCOPY 10/21/2022 CHOLECYSTECTOMY 11/29/2022 COLECTOMY 11/24/2022 - 12/24/2022 sigmoid Medical History Medical History Date Comments Hyperlipidemia Motion sickness Cancer (HCC) colon Memory loss Family History Medical History Relation Name Comments No Known Problems Brother 1 No Known Problems Brother 2 Heart disease Father Riley Prostate cancer Father Riley Restless legs syndrome Father Riley Hypertension Mother Gsielle Breast cancer Sister 1 tanya No Known Problems Sister 2 Yeimi Krabbe disease Son 1 brain No Known Problems Son 2 raegan Relation Name Status Comments Brother 1 Alive Brother 2 Alive Father Riley (Age 90) Mother Giselle Alive Sister 1 tanya Alive Sister 2 Eyimi Alive Son 1 brain Alive Son 2 raegan Alive Social History Tobacco Use Types Packs/Day [...] week 12/01/2022 How often do you attend caodaism or jew serv ices? 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 Not on file Not on file Obstetrics History Last Filed Vital Signs Vital Sign Reading Time Taken Comments Blood Pressure 147/60 08/26/2023 11:30 AM HOLE DIGGER TRUCK DRIVER Pulse 57 08/26/2023 11:30 AM HOLE DIGGER TRUCK DRIVER Temperature 37 C (98.6 F) 08/26/2023 11:30 AM HOLE DIGGER TRUCK DRIVER Respiratory Rate 20 08/26/2023 11:30 AM HOLE DIGGER TRUCK DRIVER Oxygen Saturation 100% 08/26/2023 11:30 AM HOLE DIGGER TRUCK DRIVER Inhaled Oxygen Concentration - - Weight 44.9 kg (99 lb) 08/26/2023 10:20 AM HOLE DIGGER TRUCK DRIVER Height 154.9 cm (5' 1 ) 08/26/2023 10:20 AM HOLE DIGGER TRUCK DRIVER Body Mass Index 18.71 08/26/2023 10:20 AM HOLE DIGGER TRUCK DRIVER Plan of Treatment Health Maintenance Due Date Last Done Comments Hepatitis C Screening 1945 Hepatitis B Screening 1963 Well Visit 65+ 2012 Zoster Vaccine (2 of 2) 11/19/2020 09/24/2020 Depression Screening 03/11/2022 03/11/2021 Fall Risk Assessment 12/03/2023 12/02/2022 Covid-19 Vaccine (2023-2 5 season) 2024 07/11/2022, 04/13/2022, 04/08/2022, Additional history exists Influenza Vaccine (Season Ended) 2025 07/12/2023, 07/11/2022, 06/26/2022, Additional history exists Osteoporosis Screening-Bone Density Scan 11/30/2025 12/01/2023 DTaP/Tdap/Td Vaccine (3 - Td or Tdap) 02/22/2028 02/21/2018, 02/15/2018 Pneumococcal vaccine 65+ Completed 08/14/2020, 10/28 Colon Cancer Screening-Colonoscopy Discontinued 08/26/2023, 10/21/2022 Medical Devices Implanted Type Area Diesel Technology Instructor Device Identifier Shelf Expiration Date Model / Serial / Lot [employer] Hem-O-Guille Ligate Nonabsorbable Cartridge Medium Large Latex Free [id number] - [id number] Implanted:Qty: 1 on 11/29/2022 by Adrien Hendrickson MD at [facility] N/A: Abdomen [employer] 08/23/2027 [id number] / / [id number] Description:2 clips implante d Procedures Procedure Name Priority Date/Time Associated Diagnosis Comments COLONOSCOPY 08/26/2023 10:11 AM HOLE DIGGER TRUCK DRIVER from Last 3 Months or Most Recently Relevant to Health Maintenance Results * COLONOSCOPY (08/26/2023 10:11 AM HOLE DIGGER TRUCK DRIVER) Anatomical Region Laterality Modality Other Narrative Procedure Note Ghassan Viveros MD - 08/26/2023 10:11 AM CST [facility] Patient Name: Carlos Hassan Procedure Date: 08/26/2023 10:11 AM Date of : 1945 Admit Type: Outpatient Age: 78 Gender: Female Attending MD: Ghassan Viveros M.D. Room: [facility] ENDOSCOPY ROOM 2 Note Status: [...] under direct vision. The Pediatric Colonoscope PCF-H190L [id number] was introducedthrough the anus and advanced to [...] malignant neoplasm of largeintestine CPT copyright 2020 [employer]. All rights reserved. The codes documented in this report are preliminary and upon inpatient coder reviewmay be revised to meet current compliance requirements. Recognized by the [employer] for promoting quality in endoscopy Ghassan Viveros MD ENDOSCOPY PROCEDURES Final Re sult from Last 3 Months or Most Recently Relevant to Health Maintenance Insurance T MEDICARE AET MEDICARE AETNA MEDICARE Advance Directives For more information, please contact: [phone] * Full Code (Latest Code Status on [...] 10:30 AM 10/21/2022 10:30 AM Care Teams Senior Staff Accountant Relationship Specialty Start Date End Date Gordo Harrison MD [address] [place] [id number] PCP - General Internal Medicine 10/21/22 Ghassan Viveros MD [address] [facility] [address] [place] [address] Consulting Physician Gastroenterology 10/27/22 Beck Gruber MD [address] [facility] [address] [place] [address] Medical Oncologist/Hematologi Hematology and Oncology 12/23/22 Barry Rodriguez MD [address] [place] [address] Referring Physician Neurology 04/17/24
--- OUTSIDE RECORDS SUMMARY | 2025-02-12 08:43 | XMS_ITS | Data Portability ---
Author Organization [facility] Right[employer], Main Office Address [address] [place] [address] Assessment No assessment recorded. Plan of Treatment Reminders Order Date Submit Date Provider Last Modified By Organization Details Last Modified Time Details Appointments None recorded. Lab vitamin B12, serum [id number] [place] [address] Outpatient Lab, [address] [place], [address], 4 10:01:03 CBC w/ auto diff [email or web address] [place] [address] - Outpatient Lab, [address] [place], [address], 4 10:01:02 CMP, serum or plasma [id number] [place] [address] Outpatient Lab, [address] [place], [address], 4 10:01:03 lipid panel, serum [email or web address] [place] [address] Outpatient Lab, [address] [place], [address], 4 10:01:03 TSH, serum or plasma [email or web address] [place] [address] Outpatient Lab, [address] [place], [address], 4 10:01:03 T4, free, serum [id number] [place] [address] Outpatient Lab, [address] [place], [address], 4 10:01:03 pancreatic elastase, stool [email or web address] Outpatient Lab, [address] [place], [address], 4 16:31:19 fecal fat, quantitati ve, 72-hour stool [id number] Outpatient Lab, [address] [place], [address], 4 16:31:19 TSH, serum or plasma 2023 024 [facility] [place] Outpatient Lab, [address] [place], [address], 4 17:40:50 TSH + free T4, serum [email or web address] Outpatient Lab, [address] [place], [address], 4 16:31:19 T3, free, serum or plasma 2023 024 [facility] [place] Outpatient Lab, [address] [place], [address], 4 17:19:32 CBC w/ auto diff 2023 024 [facility] [place] Outpatient Lab, [address] [place], [address], 4 12:57:09 CMP, serum or plasma 2023 024 [facility] [place] Outpatient Lab, [address] [place], [address], 4 13:23:29 lipid panel, serum 2023 024 [facility] [place] Outpatient Lab, [address] [place], [address], 13:23:32 TSH, serum or plasma 2023 [facility] [place] Outpatient Lab, [address] [place], [address], 14:39:30 T4, free, serum 2023 [facility] [place] Outpatient Lab, [address] [place], [address], 14:23:21 Referral None recorded. Procedures None recorded. Surgeries None recorded. Imaging None recorded. Medication Orders Remeron 15 mg tablet 2023 [id number], [address] [place], [address], 17:36:02 Patient TargetsNo targets recorded. Patient Instructions Encounter Date Encounter Id Patient Instructions Last Modified By Organization Details Last Modified Time 11/29/2023 [id number] dementia rating scale-2* [email or web address] Not available 11/29/2023 14:52:35 alcohol misuse* [email or web address] Not available 11/29/2023 14:52:35 depression screening* [email or web address] Not available 11/29/2023 14:52:35 multi-dimensiona l health assessment questionnaire* [email or web address] Not available 11/29/2023 14:52:34 Personalized [facility] Plan and Screening Recommendations Advance Directives - Do you have one? Yes Advance Directives - Do we have your advance directive on file in your health record? No, please bring in a copy at your earliest convenience Primary Prevention/Intervent ion (prevents or decreases the chance of common diseases from occurring) Smoking Risk: Non Smoker Alcohol Misuse Screening: Negative Weight: Appropriate Physical activity: Need more exercise/physical activity Nutrition: Good Average Fall Risk (screened today): Low Vaccines Pneumococcal: Ordered Recommended today Recommended today, but you have declined No further needed Influenza: Your next one in the fall of this year Chronic Disease Risks Stroke: Low Risk Intermediate Risk I have no recommendations Acti ve diagnosis, Continue current treatment plan Heart Attack: Low risk Intermediate Risk I have no recommendations Acti ve diagnosis, Continue current treatment plan Clogging of the Arteries: Low risk Intermediate Risk I have no recommendations Acti ve diagnosis, Continue current treatment plan Diabetes: Low Risk I have no recommendations Secondary Prevention/Intervent ion (detects treatable diseases before they may cause symptoms, disability, or ) Breast Cancer Screening with mammogram: Your next mammogram: Ordered R ecommended today Recommended today, but you have declined Cervical/Uterine/Ova lupillo Cancer Screening: No screening necessary Osteoporosis Screening: Your next DEXA in: Ordered Recommen ded today Date Screening Last Performed: Colon Cancer Screening: Colonoscopy Date Screening Last Performed: __2022___ Eye Disease Screening: Dementia Risk: Low I have no recommendations Depression Screening: Negative [email or web address] Not available 11/29/2023 14:42:21 Medicare wellnes s evaluation risk assessment stable. Follow-up for hypertension, hyperlipidemia, carcinoma of the colon, depression. Clinically stable. Will check blood work consisting of CBC, CMP, lipid, thyroid and vitamin-D level. . Will start on some escitalopram 5 mg once daily. Instructed patient as well as her to call back in approximately 3-4 weeks to give us an update. May need to increase the dosage if not improving or continue the same dosage. Continue on current Rx follow-up in six months Portions of the record may have been created with voice recognition software. Occasional wrong-word or s ound-a-like substitutions may have occurred due to the inherent limitations of voice recognition software. Read the chart carefully and recognize, using context, where substitutions have occurred. Bone density scan [email or web address] Not available 11/29/2023 14:52:15 05/10/2024 [id number] Follow-up were weight loss etiology which is somewhat obscure although likely secondary simply poor intake. Will continue with current medication at this time. Will add some Remeron. Add some stool specimens checked for any evidence of malabsorption. Clinically stable otherwise. Will set up with GI for further evaluation she has a known history of colon cancer. Additional Orders - Directives - Recommendations 1. GI consultation for progressive weight loss Keep Appointment: Tue 01:30 PM Rivas Portions of the record may have been created with voice recognition software. Occasional wrong-word or s ound-a-like substitutions may have occurred due to the inherent limitations of voice recognition software. Read the chart carefully and recognize, using context, where substitutions have occurred. 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 Is scheduled tomorrow for neuropsychiatric testing further assess the cognitive domains. Clinically is doing well otherwise. Will continue on current Rx recheck back in approximately 4-6 weeks. Next Appointment: 6 Weeks Approximate Date: 07/24/2024 Portions of the record may have been created with voice recognition software. Occasional wrong-word or s ound-a-like substitutions may have occurred due to the inherent limitations of voice recognition software. Read the chart carefully and recognize, using context, where substitutions have occurred. [email or web address] Not available 06/12/2024 14:35:29 07/24/2024 [id number] Advancing ingrid ia, essential hypertension, hyperlipidemia and carcinoma: By history. Will continue with current Rx at this time. Has gained approximately 8 lb since last examination which is at least good. Will continue on current medications check back in six weeks. Follow Up: 6 Weeks Approximate Date: 09/04/2024 Portions of the record may have been created with voice recognition software. Occasional wrong-word or s ound-a-like substitutions may have occurred due to the inherent limitations of voice recognition software. Read the chart carefully and recognize, using context, where substitutions have occurred. [email or web address] Not available 07/24/2024 15:17:19 09/04/2024 [id number] Follow-up essent ial hypertension, hyperlipidemia as well as dementia likely Alzheimer's. Clinically stable. Has been seen by Neurology in the interim. Is doing well otherwise was placed on Namenda had problems tolerating the Aricept. Overall seems to be doing reasonably well. Will continue on current medications. Will check some baseline blood studies consisting of CBC, CMP, lipid, thyroid and B12 level. Continue on current Rx follow-up in four months Follow Up: 4 Months Approximate Date: 01/02/2025 Portions of the record may have been created with voice recognition software. Occasional wrong-word or s ound-a-like substitutions may have occurred due to the inherent limitations of voice recognition software. Read the chart carefully and recognize, using context, where substitutions have occurred. Created: Gordo Harrison M.D. 09.04.2024 01:56 PM [email or web address] Not available 09/04/2024 14:56:59 Reason for Referral None Reported. Results Created Date Observation Date Name Description Value Unit Range Abnormal Flag Note LastModifiedBy Organization Detail LastModifiedTime 12/01/19 24 12/01/2023 CBC/C OMPLE TE BLD COUNT W/DIF F white blood cells 6.6 x10'3 /uL 4.2-10 .8 Not Available [facility] (Lab) [address] [place], [address], 12/01/2023 12:57:09 12/01/19 24 12/01/2023 CBC/C OMPLE TE BLD COUNT W/DIF F red blood cells 4.30 x10'6 /uL 3.80-5 .20 Not Available [facility] (Lab) [address] [place], [address], 12/01/2023 12:57:09 12/01/19 24 12/01/2023 CBC/C OMPLE TE BLD COUNT W/DIF F hemoglobin 13.0 g/dL 12.0-1 5.6 Not Available [facility] (Lab) [address] [place], [address], 12/01/2023 12:57:09 12/01/19 24 12/01/2023 CBC/C OMPLE TE BLD COUNT W/DIF F hematocrit 39.8 % 35.7-4 5.7 Not Available [facility] (Lab) [address] [place], [address], 12/01/2023 12:57:09 12/01/19 24 12/01/2023 CBC/C OMPLE TE BLD COUNT W/DIF F mean red cell volume 92.6 fL 82.0-9 9.0 Not Available [facility] (Lab) [address] [place], [address], 12/01/2023 12:57:09 12/01/19 24 12/01/2023 CBC/C OMPLE TE BLD COUNT W/DIF F mean red cell hemoglobin 30.2 pg 27.0-3 3.0 Not Available [facility] (Lab) [address] [place], [address], 12/01/2023 12:57:09 12/01/19 24 12/01/2023 CBC/C OMPLE TE BLD COUNT W/DIF F mean RBC HGB concentratio n 32.7 g/dL 31.0-3 6.0 Not Available [facility] (Lab) [address] [place], [address], 12/01/2023 12:57:09 12/01/19 24 12/01/2023 CBC/C OMPLE TE BLD COUNT W/DIF F red cell distribution width 13.0 % 11.8-1 5.5 Not Available [facility] (Lab) [address] [place], [address], 12/01/2023 12:57:09 12/01/19 24 12/01/2023 CBC/C OMPLE TE BLD COUNT W/DIF F platelets 220 x10'3 /uL 150-40 0 Not Available [facility] (Lab) [address] [place], [address], 12/01/2023 12:57:09 12/01/19 24 12/01/2023 CBC/C OMPLE TE BLD COUNT W/DIF F mean platelet volume 10.1 fL 9.0-12 .4 Not Available [facility] (Lab) [address] [place], [address], 12/01/2023 12:57:09 12/01/19 24 12/01/2023 CBC/C OMPLE TE BLD COUNT W/DIF F neutrophils 71.8 % 39.0-7 2.0 Not Available [facility] (Lab) [address] [place], [address], 12/01/2023 12:57:09 12/01/19 24 12/01/2023 CBC/C OMPLE TE BLD COUNT W/DIF F lymphocytes 18.9 % 16.0-4 7.0 Not Available [facility] (Lab) [address] [place], [address], 12/01/2023 12:57:09 12/01/19 24 12/01/2023 CBC/C OMPLE TE BLD COUNT W/DIF F monocytes 7.0 % 5.0-12 .0 Not Available [facility] (Lab) [address] [place], [address], 12/01/2023 12:57:09 12/01/19 24 12/01/2023 CBC/C OMPLE TE BLD COUNT W/DIF F eosinophils 1.5 % 1.0-7. 0 Not Available [facility] (Lab) [address] [place], [address], 12/01/2023 12:57:09 12/01/19 24 12/01/2023 CBC/C OMPLE TE BLD COUNT W/DIF F basophils 0.5 % 0.0-2. 0 Not Available [facility] (Lab) [address] [place], [address], 12/01/2023 12:57:09 12/01/19 24 12/01/2023 CBC/C OMPLE TE BLD COUNT W/DIF F immature granulocytes 0.3 % 0.00-0 .50 Not Available [facility] (Lab) [address] [place], [address], 12/01/2023 12:57:09 12/01/19 24 12/01/2023 CBC/C OMPLE TE BLD COUNT W/DIF F neutrophils, absolute count 4.70 x10'3 /uL 1.5-8. 0 Not Available [facility] (Lab) [address] [place], [address], 12/01/2023 12:57:09 12/01/19 24 12/01/2023 CBC/C OMPLE TE BLD COUNT W/DIF F lymphocytes, absolute count 1.24 x10'3 /uL 1.07-3 .43 Not Available [facility] (Lab) [address] [place], [address], 12/01/2023 12:57:09 12/01/19 24 12/01/2023 CBC/C OMPLE TE BLD COUNT W/DIF F monocytes, absolute count 0.46 x10'3 /uL 0.29-0 .99 Not Available [facility] (Lab) [address] [place], [address], 12/01/2023 12:57:09 12/01/19 24 12/01/2023 CBC/C OMPLE TE BLD COUNT W/DIF F eosinophils, absolute count 0.10 x10'3 /uL 0.02-0 .53 Not Available [facility] (Lab) [address] [place], [address], 12/01/2023 12:57:09 12/01/19 24 12/01/2023 CBC/C OMPLE TE BLD COUNT W/DIF F basophils, absolute count 0.03 x10'3 /uL 0.01-0 .08 Not Available [facility] (Lab) [address] [place], [address], 12/01/2023 12:57:09 12/01/19 24 12/01/2023 CBC/C OMPLE TE BLD COUNT W/DIF F immature granulocytes ,absolute 0.02 x10'3 /uL 0.00-0 .05 Not Available [facility] (Lab) [address] [place], [address], 12/01/2023 12:57:09 12/01/19 24 12/01/2023 CBC/C OMPLE TE BLD COUNT W/DIF F nucleated red blood cells 0.0 % -0 Not Available [facility] (Lab) [address] [place], [address], 12/01/2023 12:57:09 12/01/19 24 12/01/2023 CBC/C OMPLE TE BLD COUNT W/DIF F NRBC# 0.00 x10'3 /uL Not Available [facility] (Lab) [address] [place], [address], 12/01/2023 12:57:09 12/01/19 24 12/01/2023 COMPR EHENS DILAN METAB OLIC PANEL sodium 138 mmol/ L 137-14 5 Not Available [facility] (Lab) [address] [place], [address], 12/01/2023 13:23:29 12/01/19 24 12/01/2023 COMPR EHENS DILAN METAB OLIC PANEL potassium 4.0 mmol/ L 3.5-5. 1 Not Available [facility] (Lab) [address] [place], [address], 12/01/2023 13:23:29 12/01/19 24 12/01/2023 COMPR EHENS DILAN METAB OLIC PANEL chloride 104 mmol/ L 98-107 Not Available [facility] (Lab) [address] [place], [address], 12/01/2023 13:23:29 12/01/19 24 12/01/2023 COMPR EHENS DILAN METAB OLIC PANEL carbon dioxide 32 mmol/ L 22-30 high Not Available [facility] (Lab) [address] [place], [address], 12/01/2023 13:23:29 12/01/19 24 12/01/2023 COMPR EHENS DILAN METAB OLIC PANEL anion gap 6.0 mmol/ L 14-22 low Not Available [facility] (Lab) [address] [place], [address], 12/01/2023 13:23:29 12/01/19 24 12/01/2023 COMPR EHENS DILAN METAB OLIC PANEL glucose 90 mg/dL 70-99 Not Available [facility] (Lab) [address] [place], [address], 12/01/2023 13:23:29 12/01/19 24 12/01/2023 COMPR EHENS DILAN METAB OLIC PANEL BUN 17 mg/dL 8-19 Not Available [facility] (Lab) [address] [place], [address], 12/01/2023 13:23:29 12/01/19 24 12/01/2023 COMPR EHENS DILAN METAB OLIC PANEL creatinine 0.63 mg/dL 0.66-1 .25 low Not Available [facility] (Lab) [address] [place], [address], 12/01/2023 13:23:29 12/01/19 24 12/01/2023 COMPR EHENS DILAN METAB OLIC PANEL GFR >60 Refer ence Range : [place] ge GFR Healt hy Adult : >60 mL/mi n/1.7 3 m2 Chron ic Kidne y Disea se: 15-60 mL/mi n/1.7 3 m2 Kidne y Failu re: <15/m L/min /1.73 m2 www.n iddk. nih.g ov The MDRD study equat ion has not been valid ated in child zhanna <18 years of age; pregn ant women ; the elder ly >85 years of age; or in some racia l or ethni c subgr oups, such as Hispa nics. Outsi de the valid ated ailyn eters , estim ated GFR is less accur ate, requi ring clini sreekanth judgm ent on a case- by-ca se basis . Clini sreekanth inter preta tion for other races and ages must be made by the clini sona. The MDRD study equat ion has not been valid ated for the evalu ation of serum creat inine relat ed to nutri karoline l statu s or medic ation usage . For perso ns <18 years of age, a pedia tric GFR calcu lator is avail able on the [facility] websi te: https :[email or web address] cabrera.[email or web address] [email or web address]/juliet ofess ional s/kdo qi/gf r_cal culat or Not Available [facility] (Lab) [address] [place], [address], 12/01/2023 13:23:29 12/01/19 24 12/01/2023 COMPR EHENS DILAN METAB OLIC PANEL alkaline phosphatase 64 U/L 38-126 Not Available [facility] (Lab) [address] [place], [address], 12/01/2023 13:23:29 12/01/19 24 12/01/2023 COMPR EHENS DILAN METAB OLIC PANEL alanine aminotransfe rase 16 U/L 0-35 Not Available [facility] (Lab) [address] [place], [address], 12/01/2023 13:23:29 12/01/19 24 12/01/2023 COMPR EHENS DILAN METAB OLIC PANEL aspartate aminotransfe rase 30 U/L 15-37 Not Available [facility] (Lab) [address] [place], [address], 12/01/2023 13:23:29 12/01/19 24 12/01/2023 COMPR EHENS DILAN METAB OLIC PANEL bilirubin, total 0.60 mg/dL 0.20-1 .30 Not Available [facility] (Lab) [address] [place], [address], 12/01/2023 13:23:29 12/01/19 24 12/01/2023 COMPR EHENS DILAN METAB OLIC PANEL calcium 9.7 mg/dL 8.4-10 .2 Not Available [facility] (Lab) [address] [place], [address], 12/01/2023 13:23:29 12/01/19 24 12/01/2023 COMPR EHENS DILAN METAB OLIC PANEL total protein 6.9 g/dL 6.3-8. 2 Not Available [facility] (Lab) [address] [place], [address], 12/01/2023 13:23:29 12/01/19 24 12/01/2023 COMPR EHENS DILAN METAB OLIC PANEL albumin 4.5 g/dL 3.0-4. 4 high Not Available [facility] (Lab) [address] [place], [address], 12/01/2023 13:23:29 12/01/19 24 12/01/2023 COMPR EHENS DILAN METAB OLIC PANEL globulin 2.4 g/dL 2.6-4. 2 low Not Available [facility] (Lab) [address] [place], [address], 12/01/2023 13:23:29 12/01/19 24 12/01/2023 COMPR EHENS DILAN METAB OLIC PANEL A/G ratio 1.9 ratio 1.0-2. 0 Not Available [facility] (Lab) [address] [place], [address], 12/01/2023 13:23:29 12/01/19 24 12/01/2023 LIPID PANEL cholesterol 215 mg/dL 140-19 9 high NIH BHARATHI NSUS RECOM MENDA TION FOR PALAK STERO L: ADULT CHILD LOW RISK: <200 <170 BORDE RLINE : <200- 239 ----- HIGH RISK: >240 >200 Not Available [facility] (Lab) [address] [place], [address], 12/01/2023 13:23:32 12/01/19 24 12/01/2023 LIPID PANEL triglyceride s 89 mg/dL 0-150 NIH BHARATHI NSUS REPOR T RECOM MENDA TION FOR TRIGL YCERI MINA: ADULT CHILD LOW RISK: <150 ----- BODER LINE: 150-1 99 ----- HIGH RISK: >200 ----- Not Available [facility] (Lab) [address] [place], [address], 12/01/2023 13:23:32 12/01/19 24 12/01/2023 LIPID PANEL HDL cholesterol 107 mg/dL 40- Not Available [facility] (Lab) [address] [place], [address], 12/01/2023 13:23:32 12/01/19 24 12/01/2023 LIPID PANEL LDL cholesterol, calculated 90 mg/dL 0-130 NIH BHARATHI NSUS REPOR T RECOM MENDA TIONS FOR LDL: ADULT CHILD LOW RISK <130 <110 (OPTI MAL LDL) <100 ----- BORDE RLINE : 130-1 59 ----- HIGH RISK: >160 >130 A TRIGL YCERI DE RESUL T >400 INVAL IDATE S THE CALCU LATIO N FOR LDL FRACT IONAT ION - THE LDL RESUL T WILL NOT BE REPOR FAUSTO. Not Available [facility] (Lab) [address] [place], [address], 12/01/2023 13:23:32 12/01/19 24 12/01/2023 T4 FREE free T4 0.82 NG/dL 0.78-2 .19 Not Available [facility] (Lab) [address] [place], [address], 12/01/2023 14:23:21 12/01/19 24 12/01/2023 TSH thyroid-stim ulating hormone 2.640 uIU/m L 0.465- 4.680 Not Available [facility] (Lab) [address] [place], [address], 12/01/2023 14:39:30 05/17/20 24 05/17/2024 T3 FREE free T3 2.5 pg/mL 2.77-5 .27 low Not Available [facility] (Lab) [address] [place], [address], 05/17/2024 17:19:32 05/17/2005/17/2024 TSH thyroid-stim ulating hormone 1.690 uIU/m L 0.465- 4.680 Not Available [facility] (Lab) [address] [place], [address], 05/17/2024 17:40:50 05/17/20 24 05/21/2024 PANCR EATIC ELAST ASE, FECAL pancreatic elastase, fecal >800 ug_el ast./ g >200 Sever e Pancr eatic Insuf ficie ncy: <100 Moder ate Pancr eatic Insuf ficie ncy: 100 - 200 Bernice l: >200 Perfo rmed at: [facility] [place] [address] [facility] , [place] [address] Lab Direc tor: Lenora josue MD, Phone : [phone] Not Available [facility] (Lab) [address] [place], [address], 05/21/2024 03:35:44 05/17/2005/21/2024 T4 FREE free T4 1.01 NG/dL 0.78-2 .19 Not Available [facility] (Lab) [address] [place], [address], 05/21/2024 21:09:45 05/17/2005/22/2024 FECAL FAT, QUANT ITATI VE fecal weight, total TNP g Test not perfo rmed. The requi red speci men for the test order ed was not recei micaela. CONTA CT:MEKHI PALACIOS NEMEI ER 2023 Not Available [facility] (Lab) [address] [place], [address], 05/22/2024 17:09:50 05/17/20 24 05/22/2024 FECAL FAT, QUANT ITATI VE fecal lipids, quantitative TNP Test not perfo rmed Perfo rmed at: [facility] [place] [address] , [place] [address] Lab Direc tor: Lenora josue MD, Phone : [phone] Not Available [facility] (Lab) [address], [place], [address], 05/22/2024 17:09:50 11/21/19 24 08/26/2023 colon oscop y proce dure (PROC ) No observ ation record ed. [email or web address] Not Available 2023 09:55:13 11/21/19 24 colon oscop y proce dure (PROC ) No observ ation record ed. Not Available 2023 09:55:13 12/01/19 24 DEXA, axial skele ton [facility] [address] [place] [address] [phone] Patien t Name: MANOLO HASSAN Access ion #: [id number] Sex: F : 1944 4 Dictat ed By: Renetta Larson Attend ing Physic chdii: CYNTHIA HARRISON CE [facility] Physic chidi: CYNTHIA HARRISON CE Exam Date: 2023 10:20 AM Exam Name: XR DEXA AXIAL/ HIP/PE LVIS/S PINE Admitt ing Diagno sis(es ): INDICA TION: Osteop orosis screen ing, postme nopaus al DEXA SCAN: BONE DENSIT Y REPORT : AP SPINE (L1-L4 ) : T Score: -2.5 LEFT FEMORA L NECK : T Score: -2.7 RT FEMORA L NECK : T Score: -2.7 LEFT HIP TOTAL : T Score: -2.9 RT HIP TOTAL : T Score: -3.1 TOTAL BILAT HIP AVG: T Score: -3.0 IMPRES BARRON: 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 ------ ------ ------ ------ ------ ------ ------ ------ ----- *FRAX versio n 3.08. Fractu re probab ility calcul ated for an untrea fausto patien t. Fractu re probab ility may be lower if the patien t has receiv ed treatm ent. T-scor e: compar acacia by meliton rodriguez deviat ion (SD) to a young adult popula tion, matche d for sex and ethnic ity (used for postme nopaus al women and men >50 years) and classi fied by WHO criter ia. -1.0: normal Page 1 [facility] [address] [place] [address] [phone] Patien t Name: MANOLO HASSAN Access ion #: [id number] Sex: F : 1944 4 Dictat ed By: Renetta Larson Attend ing Physic chidi: [facility] Physic chidi: CYNTHIA HARRISON Exam Date: 2023 10:20 AM Exam Name: XR DEXA AXIAL/ HIP/PE LVIS/S PINE Admitt ing Diagno sis(es ): <-1.0 to >-2.5: osteop enia -2.5: osteop orosis -2.5 plus fragil ity fractu re: severe osteop orosis Z-scor e: compar ed by SD to an age, sex, and ethnic ity popula tion (used for premen opausa l women, men <50 years, and childr en instea d of T-scor e WHO criter ia 4) <-2.0: below expect ed range/ low bone densit y for age, and a cause should be sought Electr onical ly Signed by: Renetta Larson at 2023 11:09: 52 AM Page 2 [email or web address] [facility] (Imaging) [address] [place], [address], 12/01/2023 14:01:33 12/01/19 24 12/01/2023 DEXA No observ ation record ed. [email or web address] [facility] [address] [facility], [place], [address], 12/01/2023 14:01:28 12/08/19 24 12/08/2023 [email or web address] nuous EEG monit oring , profgene ricketts al compo nent; 12-26 hrs, with VEEG (PROC ) No observ ation record ed. [email or web address] [id number] [address], [place], [address], 12/08/2023 16:46:29 Result Notes None recorded. Problems Name Problem SNOMED Code Status Onset Date Resolution Date Notes Provider Name and Address Organization Details Recorded Time Disorder of shoulder 108588934 Active Not Available [facility] 3 08:48:03 Family history of diabetes mellitus 863848365 Active 2016 Not Available [facility] 3 08:48:03 Pain in throat 451214323 Completed Not Available [facility] 3 08:48:03 Fibromyalg ia 497228940 Active Not Available [facility] 3 08:48:03 Menopausal symptom 51410804 Active 2017 Not Available [facility] 3 08:48:03 Sciatica 90364839 Active Not Available [facility] 3 08:48:03 Fluid level behind tympanic membrane Completed Not Available [facility] 3 08:48:03 Menopause present 967398980 Active Not Available [facility] 3 08:48:03 Osteopenia 255812251 Active 2017 Not Available [facility] 3 08:48:04 Blood in urine [id number] Completed Not Available [facility] 3 08:48:04 Vitamin D deficiency 04058859 Active 2019 Not Available [facility] 3 08:48:04 Strain of neck muscle 203857648 Active 2020 Not Available [facility] 3 08:48:04 Inflammato ry disorder of extremity 600229709 Active Not Available [facility] 3 08:48:04 Sinusitis 73453568 Completed Not Available [facility] 3 08:48:04 Neuropathy 394470480 Active Not Available [facility] 3 08:48:04 Fever 896504717 Completed Not Available [facility] 3 08:48:04 Osteoarthr itis 320471575 Active Not Available [facility] 3 08:48:05 Pain of shoulder region 84644571 Active Not Available [facility] 3 08:48:05 Upper respirator y infection 66343242 Completed Not Available [facility] 3 08:48:05 Hyperlipid emia 67679995 Active Not Available [facility] 3 08:48:05 Disorder of bursa of shoulder region 46090685 Active Not Available [facility] 3 08:48:05 Essential hypertensi on 19308222 Active 2019 Not Available [facility] 3 08:48:05 Colorectal cancer detected by DNA-based stool screening 986540198 Active 2021 Not Available [facility] 3 08:48:05 Posterior rhinorrhea 12725965 Active Not Available [facility] 3 08:48:06 Fatigue 97944782 Active Not Available [facility] 3 08:48:06 Pain in limb 20985302 Active Not Available [facility] 3 08:48:06 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 2022 Gordo Harrison MD [address], [address] [address], [place], [address] , [facility] 3 11:38:03 Carcinoma of colon 201687164 Active 2022 Gordo Harrison MD [address], [address] [address], [place], [address] , [facility] 3 11:39:16 Impaired cognition 351023202 Active 2022 Dominique scanlon, [facility] 3 12:12:23 Depressive disorder 47183161 Active 2023 Gordo Harrison MD [address], [address], [place], [address] , [facility] [employer] [facility] 4 14:47:16 Senile osteoporos is 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 Active 2023 Ruth Peter null, [facility] [employer] [facility] 4 15:04:25 Osteoporos is 01305132 Active 2023 Soo Cespedes CMA null, [facility] [employer] [facility] 4 16:21:40 Abnormal weight 41877743 Active 2023 RIO Garcia null, [facility] [employer] [facility] 4 16:26:45 Weight loss 63872310 Active 2023 Dominique Feliz null, [facility] [employer] [facility] 4 15:43:17 Dementia 60253288 Active 2023 Gordo Harrison MD [address], [place], [address] , [facility] [[employer] [facility] 4 15:12:21 Problem Notes None recorded. Procedures Surgical History Date Name Laterality Status Provider Name and Address Organization Details Recorded Time 11/29/19 24 Medicare Wellness CPT Code, subsequent completed Sarah Giordano RN [facility] [employer] [facility] 11/29/2023 14:35:44 10/21/19 23 Date of Last Colonoscopy completed Not Available [facility] 11/24/2022 08:43:41 04/08/20 22 Most Recent Mammogram completed Not Available [facility] 11/24/2022 08:43:41 12/08/19 19 Most Recent Bone Density completed Not Available [facility] 11/24/2022 08:43:41 08/26/20 15 colonoscopy completed Not Available [facility] 11/25/19 08:43:42 02/25/20 02 endometrial biopsy completed Not Available [facility] 11/24/2022 08:43:42 12/26/19 02 colonoscopy completed Not Available [facility] 11/25/19 08:43:42 Imaging Results Imaging Date Name Status LastModified by Organization Details LastModified Time 08/26/2023 colonoscopy procedure (PROC) completed [id number] Information not available 11/22/2023 09:55:13 11/21/2023 colonoscopy procedure (PROC) completed [email or web address] Information not available 11/22/2023 09:55:13 12/01/2023 DEXA, axial skeleton completed [address] (Imaging) [address] [place], [address], 12/01/2023 14:01:33 12/01/2023 DEXA completed [address] [place], [address], 12/01/2023 14:01:28 12/08/2023 continuous EEG monitoring, professional component; 12-26 hrs, with VEEG (PROC) completed [email or web address] [id number] [address] [facility] [address], [place], [address], 12/08/2023 16:46:29 Procedure Notes None recorded. Medical Equipment None Reported. Medications Name Sig Start Date Stop Date Status Note LastModified by Organization Details LastModified Time quetiapine 25 mg tablet active Not Available Not Available Not Available cyclobenzap rine 10 mg tablet Take 1 tablet 3 times a day by oral route as needed. 10/19 completed Not Available Not Available Not Available amoxicillin 500 mg capsule Take 1 capsule every 12 hours by oral route for 10 days. active Not Available Not Available No t Available azithromyci n 250 mg tablet TAKE 2 TABLETS (500 MG) BY ORAL ROUTE ONCE DAILY FOR 1 DAY THEN 1 TABLET (250 MG) BY ORAL ROUTE ONCE DAILY FOR 4 DAYS active Not Available Not Available No t Available hydrocodone 5 mg-acetamin ophen 325 mg tablet active Not Available Not Available No t Available ondansetron HCl 4 mg tablet 07/26 completed Not Available Not Available Not Available alendronate 70 mg tablet TAKE 1 TABLET BY MOUTH ONE TIME PER WEEK active Not Available Not Available No t Available tramadol 50 mg tablet TAKE 1 TO 2 TABLETS EVERY 6 HOURS NEEDED active Not Available Not Available No t Available triamcinolo ne acetonide 0.1 % topical cream 10/19 completed Not Available Not Available Not Available oxycodone-a cetaminophe n 5 mg-325 mg tablet 07/26 completed Not Available Not Available Not Available amoxicillin 875 mg tablet Take 1 tablet every 12 hours by oral route with meals for 10 days. active Not Available Not Available No t Available lorazepam 0.5 mg tablet TAKE 1 TABLET (0.5 MG TOTAL) BY MOUTH ONCE FOR 1 DOSE. TAKE 15 MIN BEFORE MRI 11/28 completed Not Available Not Available Not Available lisinopril 10 mg tablet TAKE 1 TABLET BY MOUTH EVERY DAY 11/21 completed Not Available Not Available Not Available pramipexole 0.125 mg tablet 06/21 completed Not Available Not Available Not Available diclofenac sodium 75 mg tablet,kolby yed release Take 1 tablet twice a day by oral route. active Not Available Not Available No t Available pravastatin 20 mg tablet TAKE 1 TABLET BY MOUTH EVERY DAY active Not Available Not Available No t Available lisinopril 5 mg tablet TAKE 1 TABLET BY MOUTH EVERY DAY active Not Available Not Available No t Available zolpidem 5 mg tablet TAKE 1 TABLET EVERY DAY BY ORAL ROUTE NEEDED. 10/19 completed Not Available Not Available Not Available mirtazapine 15 mg tablet TAKE 1 TABLET BY MOUTH EVERY DAY IN THE EVENING 2024 active Not Available Not Available Not Avai lable gabapentin 100 mg capsule 1 cap po nightly 10/19 completed Not Available Not Available Not Available ergocalcife rol (vitamin D2) 1,250 mcg (50,000 unit) capsule TAKE 1 CAPSULE EVERY WEEK BY ORAL ROUTE. 07/26 completed Not Available Not Available Not Available methylpredn isolone 4 mg tablets in a dose pack TAKE 6 TABLETS ON DAY 1 DIRECTED ON PACKAGE AND DECREASE BY 1 TAB EACH DAY FOR A TOTAL OF 6 DAYS 03/11 completed Not Available Not Available Not Available hydroxyzine HCl 10 mg tablet TAKE 1 TABLET BY MOUTH 3 TIMES A DAY NEEDED FOR ANXIETY 10/19 completed Not Available Not Available Not Available fluticasone propionate 50 mcg/actuati on nasal spray,suspe nsion Inhale 2 sprays every day by intranasa l route in the morning for 30 days. active Not Available Not Available No t Available escitalopra m 10 mg tablet TAKE 1 TABLET BY MOUTH EVERY DAY active Not Available Not Available No t Available escitalopra m 20 mg tablet TAKE 1 TABLET BY MOUTH EVERY DAY active Not Available Not Available No t Available memantine 5 mg tablet TAKE 1 TABLET BY MOUTH TWICE A DAY active Not Available Not Available No t Available escitalopra m 5 mg tablet TAKE 1 TABLET BY MOUTH EVERY DAY 2023 active Not Available Not Available Not Avai lable Boostrix Tdap 2.5 Lf unit-8 mcg-5 Lf/0.5 mL intramuscul ar syringe 06/02 completed Not Available Not Available Not Available melatonin 10/19 completed Not Available Not Available Not Available Vitamin D3 125 mcg (5,000 unit) tablet Take 1 tablet every day by oral route. 2023 active Not Available Not Available Not Avai lable Fluzone 1295-6225 45 mcg (15 mcg x 3)/0.5 mL intramuscul ar suspension TO BE ADMINISTE RED BY PHARMACIS T FOR IMMUNIZAT ION active Not Available Not Available No t Available Afluria 9457-0216(P F) 45 mcg (15 mcg x 3)/0.5 mL intramuscul ar syringe TO BE ADMINISTE RED BY PHARMACIS T FOR IMMUNIZAT ION active Not Available Not Available No t Available Fluvirin 6459-1654 (PF) 45 mcg(15 mcg x3)/0.5 mL intramuscul ar syringe 10/07 completed Not Available Not Available Not Available Fluzone High-Dose Quad (PF) 240 mcg/0.7 mL IM syringe 08/12 completed Not Available Not Available Not Available Vitals Date Recorded Body height Body mass index (BMI) Body weight Heart rate Body temperature Oxygen saturation Oxygen saturation in Arterial blood by Pulse oximetry Systolic blood pressure Diastolic blood pressure Provider Name and Address Organization Details Last Updated DateTime 4 156.21 cm 20.1 kg/m2 94535.9 8 g 58 /min 97 [degF] 98 % 98 % 108 mm[Hg] 60 mm[Hg] Ruth GARCIA - [facility] [a[employer] [facility] 4 14:27:50 Date Recorded Body height Body mass index (BMI) Body weight Heart rate Body temperature Oxygen saturation Oxygen saturation in Arterial blood by Pulse oximetry Systolic blood pressure Diastolic blood pressure Provider Name and Address Organization Details Last Updated DateTime 4 156.21 cm 16.5 kg/m2 77367.7 2 g 60 /min 97.6 [degF] 98 % 98 % 128 mm[Hg] 72 mm[Hg] RIO Garcia [facility] [employer] [facility] 4 16:32:23 Date Recorded Body height Body mass index (BMI) Body weight Heart rate Body temperature Oxygen saturation Oxygen saturation in Arterial blood by Pulse oximetry Systolic blood pressure Diastolic blood pressure Provider Name and Address Organization Details Last Updated DateTime 4 156.21 cm 16.5 kg/m2 08237.9 2 g 63 /min 97.8 [degF] 97 % 97 % 110 mm[Hg] 70 mm[Hg] RIO Garcia [facility] [employer] [facility] 4 14:23:05 Date Recorded Body height Body mass index (BMI) Body weight Heart rate Body temperature Oxygen saturation Oxygen saturation in Arterial blood by Pulse oximetry Systolic blood pressure Diastolic blood pressure Provider Name and Address Organization Details Last Updated DateTime 4 156.21 cm 17.9 kg/m2 07168.6 6 g 55 /min 97 [degF] 98 % 98 % 120 mm[Hg] 64 mm[Hg] Ruth Peter [facility] [employer] [facility] 4 14:58:55 Date Recorded Body height Body mass index (BMI) Body weight Heart rate Body temperature Oxygen saturation Oxygen saturation in Arterial blood by Pulse oximetry Systolic blood pressure Diastolic blood pressure Provider Name and Address Organization Details Last Updated DateTime 4 156.21 cm 17.5 kg/m2 65929.6 8 g 68 /min 97 [degF] 98 % 98 % 100 mm[Hg] 64 mm[Hg] RIO Garcia [facility] [employer] [facility] 4 14:38:20 Social History Question Answer Notes LastModified by Organizat ion Details LastModified Time Tobacco Smoking Status Former Smoker quit in 1970 Not Available [facility] 11/24/2022 08:43:25 Do You Have An Advance Directive? Yes [id number] Information not available 11/24/2022 Are You Blind Or Do You Have Difficulty Seeing? No MIGRATION.52990 78081 Information not available 11/24/2022 What Is Your Level Of Caffeine Consumption? Moderate MIGRATION.04232 55975 Information not available 11/24/2022 How Much Tobacco Do You Chew? None MIGRATION.32769 [id number] Information not available 11/24/2022 In The 14 Days Before Symptom Onset, Have You Had Close Contact With A Laboratory-confi rmed COVID-19 While That Case Was Ill? No MIGRATION.45979 19594 Information not available 11/24/2022 In The 14 Days Before Symptom Onset, Have You Had Close Contact With A Person Who Is Under Investigation For COVID-19 While That Person Was Ill? No MIGRATION.98691 90249 Information not available 11/24/2022 Are You Deaf Or Do You Have Serious Difficulty Hearing? No MIGRATION.30984 22910 Information not available 11/24/2022 What Type Of Diet Are You Following? REGULAR MIGRATION.97615 78508 Information not available 11/24/2022 Which Illicit Or Recreational Drugs Have You Used? None MIGRATION.92943 99721 Information not available 11/24/2022 What Is The Highest Grade Or Level Of School You Have Completed Or The Highest Degree You Have Received? [id number] 2 Years MIGRATION.75489 54004 Information not available 11/24/2022 Have There Been Any Changes To Your Family Or Social Situation? No MIGRATION.73934 72050 Information not available 11/24/2022 What Is The Fluoride Status Of Your Home? Unknown MIGRATION.71646 34974 Information not available 11/24/2022 Do You Use Insect Repellent Routinely? Yes MIGRATION.31221 28789 Information not available 11/24/2022 Where Do You Live? [facility] [email or web address] Information not available 11/29/2023 Are You Able To Care For Yourself? Yes [email or web address] Information not available 11/29/2023 Are You Blind Or Do Yo Have Difficulty Seeing? No [email or web address] Information not available 11/29/2023 Are You Deaf Or Do You Have Serious Difficulty Hearing? No Information not available 11/29/2023 Live Alone Of With Others? With Others [email or web address] Information not available 11/29/2023 Do You Have A Medical Power Of Senior Linux Systems Engineer? Yes Information not available 11/29/2023 What Was The Date Of Your Most Recent Tobacco Screening? 11/29/2023 [email or web address] Information not available 11/29/2023 Do You Have Any Pets? No [email or web address] Information not available 11/29/2023 What Is Your Relationship Status? MIGRATION.97877 38398 Information not available 11/24/2022 Do You Use Your Seat Belt Or Car Seat Routinely? Yes MIGRATION.35196 45277 Information not available 11/24/2022 Do You Have Smoke And Carbon Monoxide Detectors In Your Home? Yes MIGRATION.98625 18933 Information not available 11/24/2022 At What Age Did You Start Smoking Tobacco? 20 MIGRATION.29736 86523 Information not available 11/24/2022 Do You Participate In Social Media? Yes MIGRATION.21805 76725 Information not available 11/24/2022 Do You Use Sunscreen Routinely? Yes MIGRATION.83806 17524 Information not available 11/24/2022 Has Tobacco Cessation Counseling Been Provided? No MIGRATION.84468 90354 Information not available 11/24/2022 Do You Have Difficulty Walking Or Climbing Stairs? No MIGRATION.34458 62080 Information not available 11/24/2022 Are You Currently In School? No MIGRATION.27525 91550 Information not available 11/24/2022 Do You Have Any Dietary Restrictions? No MIGRATION.46214 84350 Information not available 11/24/2022 Sex: Female Functional Status Question Answer Note LastModified by Organizat ion Details LastModified Time What is your level of alcohol consumption? Occasional MIGRATION.[id number] 7343 Information not available 11/24/2022 Do you have transportation difficulties? No MIGRATION.120349 3629 Information not available 11/24/2022 Are you able to walk? YESWOREST MIGRATION.512863 5695 Information not available 11/24/2022 Do you have difficulty doing errands alone? No MIGRATION.386532 9469 Information not available 11/24/2022 Are you able to care for yourself? 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 No MIGRATION.604953 0366 Information not available 11/24/2022 Do you or have you ever used e-cigarettes or vape? Never used electronic cigarettes MIGRATION.847671 1440 Information not available 11/24/2022 What is your exercise level? Moderate walks MIGRATION.252989 4146 Information not available 11/24/2022 Mental Status Question Answer Note LastModified by Organizat ion Details LastModified Time Do you feel stressed (tense, restless, nervous, or anxious, or unable to sleep at night)? [id number] MIGRATION.[id number] 26 Information not available 11/24/2022 Do you have difficulty concentrating, remembering or making decisions? No MIGRATION.[id number] 26 Information not available 11/24/2022 Family History Relationship Description Onset Age of this Age Resolved Age Notes LastModified by Organization Details LastModified Time Father Congestive heart failure Mother Living 97 in good health Father deceas ed 90 with CAD, CABG, CHF and Ca prosta te Two brothe rs both living one with esopha geal cyst and the other in good health . Two sister s both living one with non-Ho dgkin' s Lympho ma the other good health [email or web address] Not available 07/26/2023 11:38:30 Father Diabetes mellitus [id number] Not available 11/24/2022 08:43:43 Mother Diabetes mellitus [id number].[id number] Not available 11/24/2022 08:43:43 Medical History Condition Response BLINDNESS N NERVE DISEASE N RHEUMATIC FEVER N BLADDER PROBLEMS N KIDNEY STONES N MRSA N OTHER # 1 N POLIO N LUNG DISEASE/DISORDER N HISTORY OF DRUG ABUSE N RADIATION / CHEMOTHERAPY N COPD N Other # 2 N BLOOD DISEASES N EAR OR HEARING PROBLEMS N MUMPS N SHINGLES N BOWEL PROBLEMS N DEPRESSION (INCLUDING POST ) N STROKE/TIA N ULCERS N BENIGN PROSTATIC HYPERPLASIA N MEASLES N HYPOTENSION N MYOCARDIAL INFARCTION N OBESITY N GERD/NAUSEA N ANEURYSM N URINARY/BLADDER/KIDNEY PROBLEMS N CORONARY ARTERY DISEASE (CAD) N ADDICTION CONCERNS N Impotence N ENDOMETRIOSIS N USE OF BLOOD THINNERS N SKIN PROBLEMS N GASTROINTESTINAL DISORDER N PERIPHERAL VASCULAR DISEASE N MUSCLE,JOINT OR BONE PROBLEMS N GASTROINTESTINAL BLEEDING N BLOOD CLOTS N ASTHMA N CATARACTS N ERECTILE DYSFUNCTION N VARICOSITIES N GI PROBLEMS N Low Testosterone N INFERTILITY N AIDS/HIV N CHEMOTHERAPY / RADIATION N LIVER DISEASE N MALE HYPOGONADISM N HYPERTENSION N Deficiency N TOURETTE'S N ANXIETY DISORDER N BLOOD TRANSFUSION N ANEMIA/BLOOD DISORDER N CHRONIC EAR INFECTIONS N BRONCHITIS N TUBERCULOSIS N GLAUCOMA N FOOT PROBLEM N DIVERTICULITIS N SLEEP APNEA N CHICKENPOX N INFECTIOUS DISEASE N PROSTATE N HEART ARRHYTHMIA N INSOMNIA N HIGH CHOLESTEROL / HYPERLIPIDEMIA N EYE PROBLEMS N HYPERTHYROIDISM N EDEMA N CHRONIC PAIN SYNDROME N HYPOTHYROIDISM N CAROTID BLOCKAGE N CONSTIPATION N BACK / NECK PROBLEMS N HAVE YOU BEEN HOSPITALIZED OR SEEN IN [facility] IN THE PAST YEAR ? N ATHEROSCLEROSIS N BREAST PROBLEMS N DIALYSIS N ECZEMA N OSTEOPOROSIS N ARTHRITIS N NO SIGNIFICANT PAST MEDICAL HISTORY N APPENDICITIS N DIABETES, TYPE N BAD TEETH N ENT N HEARTBURN / REFLUX N AUTISM SPECTRUM DISORDER (ASD) N HEPATITIS / LIVER DISEASE N GOUT N SLEEP DISORDER N ALZHEIMER'S DISEASE N Brain Problems N DEMENTIA N HERPES N SEIZURES/EPILEPSY N HEADACHES/MIGRAINES N VASCULAR DISEASE N PACEMAKER N Blood Disorder N DIZZINESS N HEART DISEASE/HEART PROBLEMS N KIDNEY DISEASE N MULTIPLE SCLEROSIS N CANCER: SPECIFY N CARDIAC ARRHYTHMIA N ATRIAL FIBRILLATION N Gall Stones N PULMONARY EMBOLISM N AUTOIMMUNE DISEASE N Gynecological History Statement/Question Response Date of Last Mammogram 03/21/2020 Date of Last Colonoscopy 10/21/2022 Most Recent Mammogram 04/08/2022 Date of LMP Most Recent Bone Density 12/07/2018 Obstetrics History GPAL:G 3 P 2 0 1 0 Type Value Full Term 2 Spontaneous 1 Total 3 Immunizations Vaccine Type Date Status Note Provider Nam e and Address Organization Details Recorded Time SARS-COV-2 (COVID-19) vaccine, UNSPECIFIED 3 completed Ruth Peter Fwd: [employer] [place] [employer] [facility] [employer] 07/26/2023 11:24:36 influenza, unspecified formulation 3 completed Ruth scanlon 20:20 [employer] [facility] [employer] 07/26/2023 11:24:55 influenza, unspecified formulation 2 completed Not Available [facility] 11/24/2022 08:52:23 COVID-19, mRNA, LNP-S, PF, 100 mcg/0.5mL dose or 50 mcg/0.25mL dose 2 completed Not Available [facility] 11/24/2022 08:52:23 Influenza, high-dose, trivalent, PF 1 completed Not Available [facility] 11/24/2022 08:52:23 zoster, unspecified formulation 0 completed Not Available [facility] 11/24/2022 08:52:24 Influenza, high-dose, quadrivalent, PF 0 completed Not Available [facility] 11/24/2022 08:52:24 Tdap 8 completed Not Available [facility] 11/24/2022 08:52:24 Influenza, split virus, quadrivalent, preservative 7 completed Not Available [facility] 11/24/2022 08:52:24 Influenza, high-dose, trivalent, PF 6 completed Not Available [facility] 11/24/2022 08:52:24 Influenza, split virus, trivalent, preservative 4 completed Not Available [facility] 11/24/2022 08:52:24 Influenza, split virus, trivalent, preservative 4 completed Not Available [facility] 11/24/2022 08:52:24 Pneumococcal conjugate PCV 13 0 completed Not Available [facility] 11/24/2022 08:52:24 Influenza, high-dose, trivalent, PF 9 completed Not Available [facility] 11/24/2022 08:52:25 Influenza, high-dose, trivalent, PF 8 completed Not Available [facility] 11/24/2022 08:52:25 Tdap 8 completed Not Available [facility] 11/24/2022 08:52:25 Influenza, high-dose, trivalent, PF 6 completed Not Available [facility] 11/24/2022 08:52:25 Influenza, high-dose, trivalent, PF 5 completed Not Available [facility] 11/24/2022 08:52:25 pneumococcal polysaccharide PPV23 4 completed Not Available [facility] 11/24/2022 08:52:25 Past Encounters Encounter ID Performer Location Encounter Start Date Encounter Closed Date Diagnosis/Indication Diagnosis SNOMED-CT Code Diagnosis ICD10 Code Diagnosis Note [id number] Crow Rowe MD Francisco_[address] [address] 02/20/2021 00:00:00 02/20/2021 14:26:02 [id number] Crow Rowe MD [facility] [address] [place] [id number] 1 08/25/2021 00:00:00 08/26/2021 16:54:12 [id number] Crow Rowe MD [facility] [address] [place] [id number] 1 11/17/2021 00:00:00 11/17/2021 12:01:11 [id number] Crow Rowe MD [address] [address] 03/11/2022 00:00:00 03/11/2022 17:32:22 [id number] Lisa Medley NP [address] [address] 04/30/2022 00:00:00 04/30/2022 09:53:36 [id number] Lisa Medley NP [address] [id number] 05/12/2022 00:00:00 05/12/2022 17:12:34 [id number] Crow Rowe MD [address] [address] 08/13/2022 00:00:00 08/13/2022 11:13:42 [id number] Gordo Harrison MD [facility] Internal Med [place] [facility]ly [facility] [place] [address] [address] 10/19/2022 00:00:00 10/19/2022 15:11:10 [id number] Gordo Harrison MD [facility] [place] [facility] [place] [address] [address] 07/26/2023 11:17:46 07/26/2023 11:55:05 Essential hypertension 85446779 I10 Hyperlipidemia 45488137 E78.5 Carcinoma of colon 62256 3000 C18.9 Mild neuro cognitive disorder 185794287 G31.84 [id number] Gordo Harrison MD [facility] Internal Med [place] [address] [place] [address] y , [place] [address] 11/29/2023 14:27:04 11/30/2023 08:32:51 Adult health examination [id number] Z00.00 Screening for disorder 306573600 Z13.9 Essential hypertension 45960941 I10 Hyperlipidemia 45924587 E78.5 Carcinoma of colon 40383 3000 C18.9 Depressive disorder 3548 9007 F32.A Vitamin D deficiency 347 66671 E55.9 [id number] Gordo Harrison MD [facility] Internal Med [place] [address] [place] [address] [place] [address] 05/10/2024 16:22:03 05/10/2024 17:40:20 Abnormal weight 32754944 R63.4 Essential hypertension 06180259 I10 Hyperlipidemia 05331996 E78.5 Carcinoma of colon 43108 3000 C18.9 [id number] Gordo Harrison MD [facility] Internal Med [place] [address] [place] [address] [place] [address] 06/12/2024 14:14:58 06/12/2024 14:39:54 Depressive disorder 36046964 F32.A Carcinoma of colon 24014 3000 C18.9 Hyperlipidemia 81840253 E78.5 [id number] Gordo Harrison MD [facility] Internal Med [place] [address] [place] [address] [address] [place] [address] 07/24/2024 14:46:36 07/24/2024 15:33:37 Carcinoma of colon 113109913 C18.9 Essential hypertension 01464645 I10 Hyperlipidemia 25611636 E78.5 Dementia 67388425 F03.90 [id number] Gordo Harrison MD [facility] [place] [address] [facility] [address] [place] [address] 09/04/2024 14:28:57 09/04/2024 15:17:23 Essential hypertension 28257805 I10 Hyperlipidemia 11970063 E78.5 Dementia 07618738 F03.90 Health Concerns Section Related Observation LastModified by Organization Detai ls LastModified Time None Recorded Concern Status LastModified by Organization Details LastModified Time None Recorded Advance Directives Directive Y: Payers Encounter Date Sequence Insurance Name Policy Number Policy Capellan Covered Member ID Capellan Member ID Guarantor Name 11/29/2023 1 [employer] (MEDICARE REPLACEMENT/ ADVANTAGE - PPO) [id number] Manolo Hassan [id number] Manolo Denue 05/10/2024 1 [employer] (MEDICARE REPLACEMENT/ ADVANTAGE - PPO) [id number] Manolo Jane Denue [id number] Orlandona Denue 06/12/2024 1 [employer] (MEDICARE REPLACEMENT/ ADVANTAGE - PPO) [id number] Manolo Jane Denue [id number] Orlandona Denue 07/24/2024 1 [employer] (MEDICARE REPLACEMENT/ ADVANTAGE - PPO) [id number] Manolo Jane Denue [id number] Manolo Denue 09/04/2024 1 [employer] (MEDICARE REPLACEMENT/ ADVANTAGE - PPO) [id number] Manolo Hassan [id number] Manolo Denue Notes Date Note Type Note Provider Name and Address Organization Details Recorded Time 4 text/html Patient Name: Manolo Oliveraate Of Service: Tuesday ( 11.29.2023 ): 1945 Age: 78 There has been approximately a 8 lb weight gain since 07/26/2023. This represents approximately a 8.0% change in weight. Weight change attributable to lifestyle changes. Vital Signs:Blood Pressure: Sitting Rt. Arm 108/60Pulse: Sitting 58 /min and RegularRespiratory Rate: 12Height 61.5 in or 1.6 mWeight 108 lb or 49.0 kgBMI 20.1Temperature: 97 F or 36.1 CPulse Oximetry: 98 % at rest on no oxygen Chief Complaint: Addressed in HPI Problems or conditions discussed in the HPI were the only ones reviewed during the encounter.Only social and family history addressed in the HPI were reviewed during this encounter. A significant, separate E/M service was performed to evaluate the current and new problems. Attendant(s): HusbandConstitutional and Systemic Symptoms:none Medication Reconciliation: from medication list. History of Present Illness Reviewed the findings of the preventative health visit. Addressed all areas with the patient, patient's family or caregivers. Preventative examinations and testing immunizations - vaccinations, colonic neoplasm screening, mammograms and DEXA Scan all reviewed and ordered where patient was amenable to the recommendations. Cognitive function demonstrated MCI. Depression addressed and where necessary medications were adjusted or instituted. End of life and living will briefly discussed with patient and where these can be filled out and legally executed. Other blood and imaging studies were ordered if considered necessary. Other recommendations may be found in the encounter note. #1. Essential Hypertension: Stage: Stage I Interval Neurological Complaints no headaches, dizziness, weakness, visual changes, ataxia, aphasia and apraxia. No shortness of breath, orthopnea or cardiovascular symptoms. No other symptoms related to end organ damage. Pressure has been under excellent control. Currently normal. No other end organ symptoms or findings. Therapy reviewed regarding management of hypertension and includes salt restriction. #2. Type II Hypercholesterolaemia: Currently taking medication and tolerating well. No interval complaints of any muscle pain or arthralgia. No significant liver changes with medications. Last lipid panel: no testing done recently. Therapy reviewed regarding treatment of cholesterol management and include diet and Pravastatin Sodium. #3. History of carcinoma colon. Clinically stable. No evidence any metastases. There has been no evidence any change in bowel habits, pain or any other systemic symptomatology.: #4. Hx of depression currently stable. Pharmacological treatment : started Escitalopram . Suicidal thoughts or ideas: None Loss of appetite: No Sleep Disturbance: Yes Hallucinations: No Is currently seeing no one. Discussed possibility of decreasing and weaning off medication. Feels that current regimen is working fine and wishes not to change the current treatment regimen. No contraindication to continue current therapy. 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 This represents approximately a 17.6% change in weight. Weight change attributable to lifestyle changes. Vital Signs:Blood Pressure: Sitting Rt. Arm 128/72Pulse: Sitting 60 /min and RegularRespiratory Rate: 14Height 61.5 in or 1.6 mWeight 89 lb or 40.4 kgBMI 16.5Temperature: 97.6 F or 36.4 C Chief Complaint: Addressed in HPI Problems or conditions discussed in the HPI were the only ones reviewed during the encounter.Only social and family history addressed in the HPI were reviewed during this encounter. Attendant(s): NoneConstitutional and Systemic Symptoms:none Medication Reconciliation: from medication list. History of Present Illness #1. Progressive weight loss which sounds more like secondary to poor oral intake. Is not having much in the way of any diarrhea or change in bowel habits. Patient needs basically one meal a day and usually in the evening does not eat large quantities. Is on some supplements recently. Is somewhat depressed. He has been on antidepressants and has not shown much response to any medications. May can try some low-dose Remeron 15 mg see if they might boost her appetite. Clinically stable otherwise. Will check a stool for elastase for possible pancreatic insufficiency. Will try to implement some additional testing with regards to stool fats. Otherwise is clinically stable. Will set up with GI.: #2. Essential Hypertension: Stage: Stage I Interval Neurological Complaints no headaches, dizziness, weakness, visual changes, ataxia and aphasia. No shortness of breath, orthopnea or cardiovascular symptoms. No other symptoms related to end organ damage. Pressure has been under excellent control. Currently normal. No other end organ symptoms or findings. Therapy reviewed regarding management of hypertension and includes salt restriction. #3. Type II Hypercholesterolaemia: Currently taking medication and tolerating well. No interval complaints of any muscle pain or arthralgia. No significant liver changes with medications. Last lipid panel: fair control. Therapy reviewed regarding treatment of cholesterol management and include diet and Pravastatin Sodium. #4. Hx of Ca of the colon. No hx of any change in bowel habits or bleeding. No interval complaints of any signs or symptoms of metastatic disease,, or constitutional symptoms. Last Colonoscopy: one years ago. 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 Arm 110/70Pulse: Sitting 63 /min and RegularRespiratory Rate: 12Height 61.5 in or 1.6 mWeight 88 lb or 39.9 kgBMI 16.4Temperature: 97.8 F or 36.6 CPulse Oximetry: 97 % at rest on no oxygen Chief Complaint: Addressed in HPI Problems or conditions discussed in the HPI were the only ones reviewed during the encounter.Only social and family history addressed in the HPI were reviewed during this encounter. Attendant(s): HusbandConstitutional and Systemic Symptoms:none Medication Reconciliation: by patient. History of Present Illness #1. Follow-up for depression. Recently had her escitalopram increase to 20 mg daily. Does appear to be more alert and attentive but has not gained any weight and actually has lost 1 lb since last evaluation. Is scheduled tomorrow for a neuro cognitive screening test. Interval complaints of any headaches, dizziness, stroke-like symptoms or any other neuro vascular dermatology. Did have a 72 hour stool fat which was negative for any type of malabsorption.: #2. Type II Hypercholesterolaemia: Currently taking medication and tolerating well. No interval complaints of any muscle pain or arthralgia. No significant liver changes with medications. Last lipid panel: fair control. Therapy reviewed regarding treatment of cholesterol management and include diet and Pravastatin Sodium. #3. Follow-up carcinoma of the colon clinically stable. 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 Family HistoryMother Living 97 in good healthFather 90 with CAD, CABG, CHF and Ca prostateTwo brothers both living one with esophageal cyst and the other in good health.Two sisters both living one with non-Hodgkin's Lymphoma the other good health Gordo Harrison MD [address] [facility], [facility] [address], [place], [address], [place] [facility] [employer] 06/12/2024 14:35:41 4 text/html Patient Name: Manolo PowellueDate Of Service: Tuesday ( 07.24.2024 ): 1945 Age: 78 Chief Complaint: Addressed in HPI Problems or conditions discussed in the HPI were the only ones reviewed during the encounter.Only social and family history addressed in the HPI were reviewed during this encounter. Attendant(s): HusbandConstitutional and Systemic Symptoms:none Medication Reconciliation: from medication list. History of Present Illness #1. Hx of dementia. Currently stable. There has been no clinical change in cognitive functions. Performance of activities of daily living has remained unchanged. Currently taking no medication scheduled to see Neurology later this month. Mini-Cog Score: Severe Cognitive Impairment #2. Essential Hypertension: Stage: Stage I Interval Neurological Complaints no headaches. No shortness of breath, orthopnea or cardiovascular symptoms. No other symptoms related to end organ damage. Pressure has been under excellent control. Currently normal. No other end organ symptoms or findings. Therapy reviewed regarding management of hypertension and includes salt restriction. #3. Type II Hypercholesterolaemia: Currently taking medication and tolerating well. No interval complaints of any muscle pain or arthralgia. No significant liver changes with medications. Last lipid panel: fair control. Therapy reviewed regarding treatment of cholesterol management and include diet and Pravastatin Sodium. #4. Hx of Ca of the colon. No hx of any change in bowel habits or bleeding. No interval complaints of any signs or symptoms of metastatic disease,, or constitutional symptoms. Last Colonoscopy: Scheduled to oncology in the next several days along with GI. years ago. 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 This represents approximately a 6.8% change in weight. Weight change attributable to lifestyle changes. Vital Signs:Blood Pressure: Sitting Rt. Arm 100/64Pulse: Sitting 94 /min and RegularRespiratory Rate: 16Height 61.5 in or 1.6 mWeight 94.0 lb or 42.6 kgBMI 17.5Temperature: 97.0 F or 36.1 CPulse Oximetry: 98 % at rest on no oxygen Chief Complaint: Addressed in HPI Problems or conditions discussed in the HPI were the only ones reviewed during the encounter.Only social and family history addressed in the HPI were reviewed during this encounter. Attendant(s): HusbandConstitutional and Systemic Symptoms:none Medication Reconciliation: by patient. History of Present Illness #1. Essential Hypertension: Stage: normal Interval Neurological Complaints no headaches. No shortness of breath, orthopnea or cardiovascular symptoms. No other symptoms related to end organ damage. Pressure has been under fair control. Currently normal. No other end organ symptoms or findings. Therapy reviewed regarding management of hypertension and includes salt restriction. #2. Type II Hypercholesterolaemia: Currently taking medication and tolerating well. No interval complaints of any muscle pain or arthralgia. No significant liver changes with medications. Last lipid panel: fair control. Therapy reviewed regarding treatment of cholesterol management and include diet and Pravastatin Sodium. #3. Hx of dementia. Currently stable. There has been no clinical change in cognitive functions. Performance of activities of daily living has remained unchanged. Currently taking Mirtazapine, Namenda and Quetiapine Fumarate Mini-Cog Score: Severe Cognitive Impairment Active Medication ListVitamin D DailyPravastatin Sodium 20 MG TABLET One DailyEscitalopram 10 MG TABLET One DailyNamenda 5 MG TABLET One DailyQuetiapine Fumarate 25 MG TABLET One DailyMirtazapine 15 MG TABLET One Daily Vaccination and Immunization(X) 2023-06 COVID BOOSTER MODERNA(X) 2023-06 INFLUENZA( ) 2020-08 ZOSTAVAX (SHINGLES)( ) 2022-03 COVID MODERNA( ) 2013-09 PNEUMOVAX( ) 2020-07 PREVNAR 13 GC Surgical Unhoavr1238-92 Left Hemicolectomy Preventative Testing( ) 12/01/2023 DEXA Scan (Osteoporosis)( ) 08/26/2023 Colonoscopy ( 3 Years ) 08/26/2026 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
[2025-02-12 08:52] VITALS: BP 144/90; PULSE 61; RESP 24; O2SAT 100
[2025-02-12] MEDS: ACETAMINOPHEN 325 MG TABLET 650 MG PO ×2 (09:13→16:32)
[2025-02-12 09:28] LABS: Add Urine Microscopic? YES; Appearance Urine Clear (Clear); Bacteria Urine None Seen /hpf; Bilirubin Urine Negative (Negative); Blood Urine Negative (Negative); Color Urine Yellow (Yellow); Glucose Urine UA Negative (Negative); Ketones Urine Trace mg/dL (Negative); Leukocyte Esterase Ur Trace LEU/UL (Negative); Nitrate Urine Negative (Negative); Non Pathogenic Casts 0-2; Protein Urine Negative (Negative); Specific Grav Ur 1.016 (1.001-1.035); Squamous Epithelial Cell Urine None Seen /hpf (Few); Urobilinogen Urine 0.2 mg/dL (<2.0); WBC Urine 0-5 /hpf (0-3)
[2025-02-12 10:12] LABS: Basophils Percent Auto 0.3 % (0.2-1.2); Eosinophils Percent Auto 0.4 % (0-4.4); Hematocrit 35.4 % (37.0-47.0); Hemoglobin 11.9 g/dL (12.0-15.0); Immature Granulocyte Absolute 0.04 K/mm3 (0.00-0.031); Immature Granulocyte Percent A 0.4 % (0-0.5); Lymphocytes Absolute Auto 0.75 K/mm3 (0.9-3.2); Lymphocytes Percent Auto 8.3 % (18.3-44.2); Mean Corpuscular HGB Conc 33.6 g/dl (32-36); Mean Corpuscular Hemoglobin 29.8 pg (26-34); Mean Corpuscular Volume 88.7 fl (80-100); Mean Platelet Volume 9.9 fl (7.4-10.4); Monocytes Absolute Auto 0.6 K/mm3 (0.1-0.6); Neutrophils Absolute Auto 7.5 K/mm3 (1.3-6.7); Neutrophils Percent Auto 83.6 % (45.5-73.1); Platelet Count Result 173 k/mm3 (150-375); Red Blood Count 3.99 M/mm3 (4.2-5.4); Red Cell Distribution Width 12.9 % (11.5-14.5)
[2025-02-12 10:17] LABS: Anion Gap 8 mmol/L (4-12); Blood Urea Nitrogen 23 mg/dL (7-17); Calcium 9.2 mg/dL (8.4-10.2); Carbon Dioxide 23 mmol/L (22-30); Chloride 109 mmol/L (98-107); Estimated CRCL calculation 42 ml/min; Estimated Glomerular Filt Rate > 60; Glucose 102 mg/dL (65-110); Potassium 3.6 mmol/L (3.4-5.0); Sodium 140 mmol/L (137-145)
[2025-02-12] MEDS: MORPHINE SULFATE (*CRX) 2 MG/ML INJ IV PUSH (10:27)
[2025-02-12] MEDS: LORazepam (*CRX) 0.5 MG TABLET PO (10:27)
[2025-02-12 10:29] VITALS: BP 155/70; PULSE 69; RESP 20; O2SAT 99
[2025-02-12 10:36] LABS: Prothrombin Time 13.4 Seconds (11.1-14.7)
[2025-02-12 10:37] LABS: Partial Thromboplastin Time 26.9 Seconds (22.3-36.8)
[2025-02-12 11:41] VITALS: BP 143/62; PULSE 61; RESP 16; TEMP 36.5; O2SAT 96
[2025-02-12 12:06] VITALS: BMI 20.2
--- NOTE | 2025-02-12 12:07 | ADMGEN ---
This patient, Carlos Hassan, was admitted to [facility] Surg Room 317-02. Patient/family oriented to hospital policies and general routines including ID bracelet, bed and alarms, visiting hours, pain management, procedures, bathroom and other care routines, personal items, smoking policy, room service/diet, and visiting hours. Information on how to activate the Rapid Response Team has been discussed. Patient/Family are encouraged to report perceived risks to care and to ask questions if they do not understand what they are told or what they should do.
--- NOTE | 2025-02-12 12:26 | PM.IMHP ---
H&P: HPI History of Present Illness Date/Time: 02/12/25 12:26 Chief Complaint: Fall, Hip Pain Narrative: 79 y/o F with PMH of dementia presents here with a ground level fall and hip pain. HPI obtained through EMS report, chart review and patient report as the patient has dementia and arrived A/Ox1. The patient reportedly fell last night, unclear etiology. She landed on her buttocks with a positive head strike and unknown if patient had loss of consciousness. The patient reports right hip pain post fall and has been on unable to ambulate since. She arrived to the emergency department with a small hematoma to the right side of her face and A&O x1. She is not currently on anticoagulation. Initial VS at presentation: 97.7? F, HR 62, R 16, 139/43, and 100% on RA. ED workup showed: No leukocytosis, hemoglobin 11.9, normal coags, no significant electrolyte derangements, creatinine 0.72 and GFR >60, UA showed trace ketones/trace leuks/3-[address] showed no acute intracranial findings. Cervical spine CT showed no acute osseous abnormality of the cervical spine and multilevel degenerative disc disease. Hip/pelvic XR showed a nondisplaced right femoral intertrochanteric fracture. Review of Systems Review of Systems: ROS unobtainable: Yes unobtainable due to mental status PMFSH Past Medical History Medical History Dementia History of colon cancer Early satiety Weight loss Surgical History Surgical History H/O left hemicolectomy Family History Family History Mother No pertinent past medical history Father No pertinent past medical history Social History Social History Smoking status: Former smoker Alcohol intake: never Alcohol use details: social Substance use: never Living arrangements: with family Additional living arrangements comments: Occupation/Education: retired Gender identity (if verbalized by the patient): Female Sexual Orientation (if Verbalized by the Patient): Straight or Heterosexual Spiritual care concerns: No Meds Home Medications and Allergies Home Medications ?Medication ?Instructions ?Recorded ?Confirmed ?Type pravastatin 20 mg tablet 20 mg PO DAILY 06/29/20 02/12/25 History alendronate 70 mg tablet 70 mg PO WEEKLY 02/12/25 02/12/25 History escitalopram oxalate 20 mg tablet 20 mg PO DAILY 02/12/25 02/12/25 History memantine 5 mg tablet 10 mg PO DAILY 02/12/25 02/12/25 History mirtazapine 15 mg tablet 15 mg PO DAILY 02/12/25 02/12/25 History quetiapine 25 mg tablet 25 mg PO PRN PRN complex 02/12/25 02/12/25 History quetiapine 50 mg tablet 50 mg PO PRN PRN complex 02/12/25 02/12/25 History Allergies Allergy/AdvReac Type Severity Reaction Status Date / Time No Known Allergies Allergy Verified 02/12/25 14:23 Vital Signs Vital Signs - 24 hr 02/12/25 08:26 02/12/25 08:52 02/12/25 10:29 Temperature 97.7 F Pulse Rate 62 61 69 Respiratory Rate 16 24 H 20 Blood Pressure 139/43 L 144/90 H 155/70 H Pulse Oximetry 100 100 99 Oxygen Delivery Room Air 02/12/25 11:41 Temperature 97.7 F Pulse Rate 61 Respiratory Rate 16 Blood Pressure 143/62 H Pulse Oximetry 96 Oxygen Delivery Exam Const: General: comfortable and no acute distress Other: , female, frail, nontoxic appearance HENMT: Face/Nose/Sinus: Normal nares present Mouth: Yes moist mucous membranes Eyes: General: appearance normal, both eyes and all related structures Sclera: sclerae normal Pupils: Equal, round and reactive pupils present EOM: EOMs intact bilaterally Resp: Effort & Inspection: normal respiratory effort Auscultation: clear to auscultation bilaterally Cardio: Rate: regular rate Rhythm: regular rhythm Other: S1-S2 present without murmur, rub, ectopy Skin: General skin exam: normal color and no rashes or lesions noted Wounds: no wounds Neuro: Other: A&O x1, moving all extremities Extrem: General: normal to inspection Other: DP pulses 2+ bilaterally Psych: Other: Currently somnolent, prior had agitation but received 1 time dose of Seroquel H&P: Results Labs Labs: Short CBC 02/12/25 Range/Units 09:08 WBC 9.0 (4.5-10.0) K/mm3 Hgb 11.9 L (12.0-15.0) g/dL Hct 35.4 L (37.0-47.0) % Plt Count 173 (150-375) k/mm3 BMP 02/12/25 09:08 Sodium 140 Potassium 3.6 Chloride 109 H Carbon Dioxide 23 BUN 23 H Creatinine 0.72 Glucose 102 Calcium 9.2 Urine 02/12/25 Range/Units 09:08 Urine Color Yellow (Yellow) Urine Appearance Clear (Clear) Urine pH 7.0 (5.0-9.0) Ur Specific [place] 1.016 (1.001-1.035) Urine Protein Negative (Negative) mg/dL Urine Glucose (UA) Negative (Negative) mg/dL Assessment and Plan Assessment and plan (1) Closed intertrochanteric fracture of right femur: Qualifiers: Encounter type: initial encounter Fracture alignment: nondisplaced Qualified Code(s): S72.144A - Nondisplaced intertrochanteric fracture of right femur, initial encounter for closed fracture Code(s): S72.141A - Displaced intertrochanteric fracture of right femur, initial encounter for closed fracture Status: Acute Assessment and Plan: Head CT and C-spine CT negative for acute findings. Hip/pelvic XR showed a nondisplaced right femoral intertrochanteric fracture. Orthopedic consult placed. NPO at midnight. Analgesics and antipyretics p.r.n.. Bed rest and Guallpa catheter placed. Patient will require PT/OT postop. Care coordination consulted for discharge planning. Monitor daily labs. (2) Normocytic anemia: Code(s): D64.9 - Anemia, unspecified Status: Chronic Assessment and Plan: History of normocytic anemia. Hemoglobin 11.9 upon admission. Transfuse if less than 7. Monitor. (3) Dementia: Qualifiers: Dementia type: Alzheimer's Alzheimer's disease onset: other onset Dementia severity: severe Dementia behavioral or psychological symptom: with agitation Qualified Code(s): G30.8 - Other Alzheimer's disease; F02.C11 - Dementia in other diseases classified elsewhere, severe, with agitation Code(s): F03.90 - Unspecified dementia, unspecified severity, without behavioral disturbance, psychotic disturbance, mood disturbance, and anxiety Status: Acute Assessment and Plan: History of significant dementia. Baseline is orientated to self only. Has Seroquel 25 mg-50 mg p.r.n. for agitation, continued. Plan Diet: Regular, NPO at midnight GI Prophylaxis: Not currently indicated DVT Prophylaxis: SCDs IV fluids: None Lines/Tubes: Peripheral IV, Guallpa catheter Code Status: Full code Quality VTE Prophylaxis VTE prophylaxis: mechanical ordered Hospitalist MIPS Advance Care Plan I have confirmed that the patient's Advanced Care Plan is present, code status is documented, or surrogate decision maker is listed in patient medical record.: Yes Medication Reconciliation I have utilized all available resources to obtain, update and review the patients current medications (includes all prescriptions, OTC, herbals, cannabis, and nutritional supplements).: Yes
--- NOTE | 2025-02-12 13:21 | PM.CNOR ---
Assessment and Plan Assessment and plan (1) Closed intertrochanteric fracture of right femur: Qualifiers: Encounter type: initial encounter Fracture alignment: nondisplaced Qualified Code(s): S72.144A - Nondisplaced intertrochanteric fracture of right femur, initial encounter for closed fracture <DU Miranda - Last Filed: 02/12/25 15:22> Code(s): S72.141A - Displaced intertrochanteric fracture of right femur, initial encounter for closed fracture <DU Miranda - Last Filed: 02/12/25 15:22> Status: Acute <DU Miranda - Last Filed: 02/12/25 15:22> Assessment and Plan: History, exam and radiographs reviewed with the patient's , Aurelio. Radiographs of the right hip reveal a nondisplaced right femoral intertrochanteric fracture. Discussed nonoperative and operative treatment options with the patient/POA. The patients questions were answered. The patient/POA desires operative treatment. Discussed Right Hip IT Nail. Risks of surgery including but not limited to neurovascular damage, wound complications, blood clot, pulmonary embolus, stroke, myocardial infarction, anesthetic risks up to and including were reviewed. Continued pain and possible dysfunction were explained. No guarantees were offered. The patient's POA understands and wishes to proceed. Plan: Right Hip IT Nail by Dr. Merced GARRETT at [facility]. Pain control. NWB. Bedrest. HIGH FALL RISK. <DU Miranda - Last Filed: 02/12/25 15:22> (2) Dementia: Qualifiers: Dementia type: Alzheimer's Alzheimer's disease onset: other onset Dementia severity: severe Dementia behavioral or psychological symptom: with agitation Qualified Code(s): G30.8 - Other Alzheimer's disease; F02.C11 - Dementia in other diseases classified elsewhere, severe, with agitation <DU Miranda - Last Filed: 02/12/25 15:22> Code(s): F03.90 - Unspecified dementia, unspecified severity, without behavioral disturbance, psychotic disturbance, mood disturbance, and anxiety <DU Miranda - Last Filed: 02/12/25 15:22> Status: Acute <DU Miranda - Last Filed: 02/12/25 15:22> Assessment and Plan: [place]: Patient seen and examined. Radiographs reviewed which show intertrochanteric fracture right hip. Discussed options with . Patient previously ambulatory without assistance or assistive devices. Desires operative treatment. Discussed nonoperative and operative treatment options with the patient. Risks and benefits of each as well as alternatives were reviewed. All of the patient's questions were answered. The risks of surgery reviewed including but not limited to: Neurovascular damage, wound complication, infection, blood clot, pulmonary embolus, stroke, myocardial infarction, and anesthetic risks up to and including . Continued pain and possible dysfunction were explained. Specific risks of the procedure including later recurrence of deformity. No guarantees were offered. If hardware used, discussed risk of failure/ breakage and possible need for removal. If complications occur, the patient understands the need for further treatment, possible further surgery. Patient verbalizes understanding and wishes to proceed. will discuss with Anesthesiology options to limit postoperative delirium. PLAN: Right hip trochanteric nail <Jaswant Blackwood MD - Last Filed: 02/12/25 15:39> History of Present Illness HPI Consult date: 02/12/25 <DU Miranda - Last Filed: 02/12/25 15:22> 02/12/25 <Jaswant Blackwood MD - Last Filed: 02/12/25 15:39> Chief complaint: R Intertrochanteric Fracture <DU Miranda - Last Filed: 02/12/25 15:22> Narrative: 79 year old female with a history of dementia presents from home after a fall last night which was unwitnessed. She does have significant dementia but is ambulatory at baseline and her helps her at home. She had an increase in confusion over the last one week per her POA/ and she was started on new medications which he believes contributed to her fall. Radiographs in the emergency room reveal a right inner trochanteric hip fracture. Patient was admitted for further evaluation and orthopedic consultation. <DU Miranda - Last Filed: 02/12/25 15:22> Review of Systems Review of Systems: ROS unobtainable: Yes unobtainable due to mental status <DU Miranda - Last Filed: 02/12/25 15:22> [facility] Past Medical History Medical History: Medical History Dementia History of colon cancer Early satiety Weight loss <DU Miranda - Last Filed: 02/12/25 15:22> Surgical History Surgical History: Surgical History H/O left hemicolectomy <DU Miranda - Last Filed: 02/12/25 15:22> Family History Family History: Family History Mother No pertinent past medical history Father No pertinent past medical history <DU Miranda - Last Filed: 02/12/25 15:22> Social History Social History: Social History Smoking status: Former smoker Alcohol intake: never Alcohol use details: social Substance use: never Living arrangements: with family Additional living arrangements comments: Occupation/Education: retired Gender identity (if verbalized by the patient): Female Sexual Orientation (if Verbalized by the Patient): Straight or Heterosexual Spiritual care concerns: No <DU Miranda - Last Filed: 02/12/25 15:22> Meds Home Medications and Allergies Home medications: Home Medications ?Medication ?Instructions ?Recorded ?Confirmed ?Type pravastatin 20 mg tablet 20 mg PO DAILY 06/29/20 02/12/25 History alendronate 70 mg tablet 70 mg PO WEEKLY 02/12/25 02/12/25 History escitalopram oxalate 20 mg tablet 20 mg PO DAILY 02/12/25 02/12/25 History memantine 5 mg tablet 10 mg PO DAILY 02/12/25 02/12/25 History mirtazapine 15 mg tablet 15 mg PO DAILY 02/12/25 02/12/25 History quetiapine 25 mg tablet 25 mg PO PRN PRN complex 02/12/25 02/12/25 History quetiapine 50 mg tablet 50 mg PO PRN PRN complex 02/12/25 02/12/25 History <ASH MirandaP - Last Filed: 02/12/25 15:22> Allergies/Adverse reactions: Allergies Allergy/AdvReac Type Severity Reaction Status Date / Time No Known Allergies Allergy Verified 02/12/25 14:23 <ASH MirandaP - Last Filed: 02/12/25 15:22> Vital Signs Vital Signs - 24 hr 02/12/25 08:26 02/12/25 08:52 02/12/25 10:29 Temperature 36.5 C Pulse Rate 62 61 69 Respiratory Rate 16 24 H 20 Blood Pressure 139/43 L 144/90 H 155/70 H Pulse Oximetry 100 100 99 Oxygen Delivery Room Air 02/12/25 11:41 Temperature 36.5 C Pulse Rate 61 Respiratory Rate 16 Blood Pressure 143/62 H Pulse Oximetry 96 Oxygen Delivery <ASH MirandaP - Last Filed: 02/12/25 15:22> Exam Const: General: comfortable and average body habitus <ASH MirandaP - Last Filed: 02/12/25 15:22> Nutritional Appearance: average body habitus <ASH MirandaP - Last Filed: 02/12/25 15:22> Limitations: no limitations <ASH MirandaP - Last Filed: 02/12/25 15:22> HENMT: Head: normal to inspection and No palpable skull fracture present <ASH MirandaP - Last Filed: 02/12/25 15:22> Ears: hearing grossly normal bilaterally and external ears normal <ASH MirandaP - Last Filed: 02/12/25 15:22> Face/Nose/Sinus: Normal external nose present, Normal nares present, Normal nasal mucous membranes and turbinates present and normal facial exam <ASH MirandaP - Last Filed: 02/12/25 15:22> Face and sinus: normal facial exam <ASH MirandaP - Last Filed: 02/12/25 15:22> Mouth: Yes Normal oral and palatal mucosa present <ASH MirandaP - Last Filed: 02/12/25 15:22> Teeth and gingiva: dentition normal <Maribel Abbott [facility] - Last Filed: 02/12/25 15:22> Eyes: General: appearance normal, both eyes and all related structures <Maribel Abbott [facility] - Last Filed: 02/12/25 15:22> Sclera: sclerae normal <Maribel Abbott [facility] - Last Filed: 02/12/25 15:22> Pupils: Equal, round and reactive pupils present <Maribel Abbott [facility] - Last Filed: 02/12/25 15:22> Neck: Neck: normal visual inspection and full ROM <Maribel Abbott [facility] - Last Filed: 02/12/25 15:22> Resp: Effort & Inspection: normal respiratory effort and able to speak in complete sentences <Maribel Abbott [facility] - Last Filed: 02/12/25 15:22> Cardio: Jugular venous distension: no JVD <Maribel Abbott [facility] - Last Filed: 02/12/25 15:22> Rate: regular rate <Maribel Abbott [facility] - Last Filed: 02/12/25 15:22> Rhythm: regular rhythm <Maribel Abbott [facility] - Last Filed: 02/12/25 15:22> GI: Inspection: normal to inspection <Maribel Abbott [facility] - Last Filed: 02/12/25 15:22> GI Palp: No abdominal tenderness <Maribel Abbott [facility] - Last Filed: 02/12/25 15:22> Urinary Catheter: Urinary Catheter: patent and draining and urine clear <Maribel Abbott [facility] - Last Filed: 02/12/25 15:22> Skin: General skin exam: normal color and no rashes or lesions noted <ASH MirandaP - Last Filed: 02/12/25 15:22> Wounds: no wounds <Maribel Abbott [facility] - Last Filed: 02/12/25 15:22> Neuro: General: No gait normal (NWB ), No moves all extremities and Unable to assess gait (bedrest ) <DU Miranda - Last Filed: 02/12/25 15:22> Cranial nerves: Yes Equal, round and reactive pupils present <DU Miranda - Last Filed: 02/12/25 15:22> Cognition (Neuro): normal cognition <DU Miranda - Last Filed: 02/12/25 15:22> Speech: normal speech <DU Miranda - Last Filed: 02/12/25 15:22> Gait exam (Neuro): Unable to assess gait (bedrest ) <DU Miranda - Last Filed: 02/12/25 15:22> Sensory Exam: normal sensation <DU Miranda - Last Filed: 02/12/25 15:22> Extrem: Right lower extremity: hip/thigh Details: abnormal to inspection Details: foreshortened and externally rotated, swelling Location: at the hip and abnormal ROM Details: held in an abnormal fashion Details: in external rotation, knee Details: normal to inspection and abnormal ROM Details: held in an abnormal fashion Details: in flexion; no tenderness, no swelling, no lacerations, no ecchymosis and no crepitus, lower leg Details: normal to inspection and no edema; no tenderness, ankle Details: normal to inspection and normal ROM and foot Details: normal capillary refill and vascular exam Details: dorsalis pedis pulse present <DU Miranda - Last Filed: 02/12/25 15:22> Results Labs Result Diagrams: 02/12/25 09:08 02/12/25 09:08 <DU Miranda - Last Filed: 02/12/25 15:22> Labs: Abnormal lab results 02/12/25 Range/Units 09:08 RBC 3.99 L (4.2-5.4) M/mm3 Hgb 11.9 L (12.0-15.0) g/dL Hct 35.4 L (37.0-47.0) % Neut % (Auto) 83.6 H (45.5-73.1) % Lymph % (Auto) 8.3 L (18.3-44.2) % Lymph # (Auto) 0.75 L (0.9-3.2) K/mm3 Abs Immat Gran (auto) 0.04 H (0.00-0.031) K/mm3 Absolute Neuts (auto) 7.5 H (1.3-6.7) K/mm3 Chloride 109 H (98-107) mmol/L BUN 23 H (7-17) mg/dL Urine Ketones Trace H (Negative) mg/dL Leukocyte Esterase Rfl Trace H (Negative) RAMESH/UL Urine RBC 3-5 H (0-2) /hpf H & H 02/12/25 Range/Units 09:08 Hgb 11.9 L (12.0-15.0) g/dL Hct 35.4 L (37.0-47.0) % Coagulation 02/12/25 Range/Units 09:08 INR 1.0 All other labs normal. <DU Miranda - Last Filed: 02/12/25 15:22>
[2025-02-12 14:00] VITALS: BP 137/54; PULSE 56; RESP 14; TEMP 35.9; O2SAT 100
[2025-02-12] MEDS: QUEtiapine FUMARATE 25 MG TABLET PO (16:32)
[2025-02-12 21:41] VITALS: BP 119/53; PULSE 54; RESP 17; TEMP 36.6; O2SAT 97
[2025-02-13] VITALS (11 sets, daily range): BP systolic 134–177; BP diastolic 65–118; PULSE 64–93; RESP 14–20; TEMP 36.1–37.2; O2SAT 96–100
[2025-02-13] MEDS: MORPHINE SULFATE (*CRX) 2 MG/ML INJ IV PUSH ×4 (05:30→21:02)
[2025-02-13] MEDS: ONDANSETRON INJ 4 MG/2 ML VIAL IV PUSH ×2 (05:45→17:58)
[2025-02-13 06:29] LABS: Hematocrit 35.1 % (37.0-47.0); Hemoglobin 11.1 g/dL (12.0-15.0); Mean Corpuscular HGB Conc 31.6 g/dl (32-36); Mean Corpuscular Hemoglobin 29.1 pg (26-34); Mean Corpuscular Volume 92.1 fl (80-100); Mean Platelet Volume 9.8 fl (7.4-10.4); Platelet Count Result 152 k/mm3 (150-375); Red Blood Count 3.81 M/mm3 (4.2-5.4); Red Cell Distribution Width 13.1 % (11.5-14.5); White Blood Count 6.7 K/mm3 (4.5-10.0)
[2025-02-13 06:45] LABS: Anion Gap 8 mmol/L (4-12); Blood Urea Nitrogen 23 mg/dL (7-17); Calcium 8.9 mg/dL (8.4-10.2); Carbon Dioxide 25 mmol/L (22-30); Chloride 108 mmol/L (98-107); Estimated CRCL calculation 42 ml/min; Estimated Glomerular Filt Rate > 60; Glucose 86 mg/dL (65-110); Potassium 3.4 mmol/L (3.4-5.0); Sodium 141 mmol/L (137-145)
--- NOTE | 2025-02-13 07:42 | P.PNIM_ITS ---
Progress Note: A&P Assessment and Plan (1) Closed intertrochanteric fracture of right femur: Qualifiers: Encounter type: initial encounter Fracture alignment: nondisplaced Qualified Code(s): S72.144A - Nondisplaced intertrochanteric fracture of right femur, initial encounter for closed fracture Code(s): S72.141A - Displaced intertrochanteric fracture of right femur, initial encounter for closed fracture Status: Acute Assessment and Plan: * Head CT and C-spine CT negative for acute findings. * Hip/pelvic XR showed a nondisplaced right femoral intertrochanteric fracture. * Analgesics and antipyretics p.r.n. * Bed rest and Guallpa catheter placed. * Patient will require PT/OT postop. * Care coordination consulted for discharge planning. * Ortho following * Tentatively planned for 1329 for R right intertrochanteric nail fracture repair. (2) Normocytic anemia: Code(s): D64.9 - Anemia, unspecified Status: Chronic Assessment and Plan: * History of normocytic anemia. * Hemoglobin 11.9 upon admission. * Transfuse if less than 7. * Monitor. (3) Dementia: Qualifiers: Alzheimer's disease onset: other onset Dementia behavioral or psychological symptom: with agitation Dementia severity: severe Dementia type: Alzheimer's Qualified Code(s): G30.8 - Other Alzheimer's disease; F02.C11 - Dementia in other diseases classified elsewhere, severe, with agitation Code(s): F03.90 - Unspecified dementia, unspecified severity, without behavioral disturbance, psychotic disturbance, mood disturbance, and anxiety Status: Acute Assessment and Plan: * History of significant dementia. * Baseline is orientated to self only. * Seroquel 25 mg-50 mg p.r.n. for agitation, continued. Plan Diet: Regular, NPO at midnight GI Prophylaxis: Not currently indicated DVT Prophylaxis: SCDs IV fluids: None Lines/Tubes: Peripheral IV, Guallpa catheter Code Status: Full code Subjective Date/time seen: 02/13/25 07:42 Interval history: 79 y/o F with PMH of dementia presents here with a ground level fall and hip pain. 02/13/2025 Patient sitting comfortably in bed at time of exam. Accompanied by son. Pt has no complaints at this time. Tentatively planned for 1329 for R right intertrochanteric nail fracture repair. Review of Systems Review of Systems: All systems reviewed & are unremarkable except as noted in HPI and below (Limited, A&O x1) ROS unobtainable: Yes unobtainable due to mental status Exam Const: General: comfortable and no acute distress Other: , female, frail, nontoxic appearance HENMT: Face/Nose/Sinus: Normal nares present Mouth: Yes moist mucous membranes Eyes: General: appearance normal, both eyes and all related structures Sclera: sclerae normal Pupils: Equal, round and reactive pupils present EOM: EOMs intact bilaterally Resp: Effort & Inspection: normal respiratory effort Auscultation: clear to auscultation bilaterally Cardio: Rate: regular rate Rhythm: regular rhythm Other: S1-S2 present without murmur, rub, ectopy Skin: General skin exam: normal color and no rashes or lesions noted Wounds: no wounds Neuro: Cranial nerves: Yes Equal, round and reactive pupils present Other: A&O x1, moving all extremities Extrem: General: normal to inspection Other: DP pulses 2+ bilaterally Psych: Other: Currently somnolent, prior had agitation but received 1 time dose of Seroquel Objective Data Vital Signs Vital Signs: Vital Signs - 24 hr 02/12/25 08:26 02/12/25 08:52 02/12/25 10:29 Temperature 97.7 F Pulse Rate 62 61 69 Respiratory Rate 16 24 H 20 Blood Pressure 139/43 L 144/90 H 155/70 H Pulse Oximetry 100 100 99 Oxygen Delivery Room Air 02/12/25 11:41 02/12/25 14:00 02/12/25 20:00 Temperature 97.7 F 96.6 F L Pulse Rate 61 56 L Respiratory Rate 16 14 Blood Pressure 143/62 H 137/54 L Pulse Oximetry 96 100 Oxygen Delivery Room Air 02/12/25 21:41 02/13/25 05:36 Temperature 97.9 F 97.7 F Pulse Rate 54 L 64 Respiratory Rate 17 19 Blood Pressure 119/53 L 134/65 Pulse Oximetry 97 99 Oxygen Delivery Intake/Output Intake/Output: Intake & Output 02/10/25 02/11/25 02/12/25 02/13/25 23:59 23:59 23:59 23:59 Intake Total 120 Output Total 550 115 Balance -430 -115 Meds/Results Medications: Active Medications Generic Name Dose Route Start Last Admin Trade Name Freq PRN Reason Stop Dose Admin Acetaminophen 650 mg 02/12/25 10:37 02/12/25 16:32 Acetaminophen 325 Mg Tablet PO 650 mg Q4H PRN Administration Mild Pain (1-3) or Fever Acetaminophen 1,000 mg 02/13/25 13:00 Acetaminophen 500 Mg Tablet PO 02/13/25 13:01 ONCE ONE Alendronate Sodium 70 mg 02/16/25 09:00 Alendronate Sodium 70 Mg Tablet PO WEEKLY [facility] Docusate Sodium 100 mg 02/12/25 12:34 Docusate Sodium 100 Mg Capsule PO Q12H PRN Constipation Escitalopram Oxalate 20 mg 02/13/25 09:00 Escitalopram Oxalate 10 Mg Tablet PO DAILY [facility] Tranexamic Acid/Sodium Chloride 1,000 mg in 100 mls @ 200 mls/hr 02/13/25 13:00 Tranexamic Acid 1,000mg/[id number] IVPB 02/13/25 13:29 ONCE ONE Cefazolin Sodium 2 gm in 50 mls @ 100 mls/hr 02/13/25 13:00 Ancef 2 Gm/D5w 50 Ml IVPB 02/13/25 13:29 ONCE ONE Ketorolac Tromethamine 15 mg 02/13/25 13:00 Ketorolac 15 Mg/Ml Vial (*Bkc) IV PUSH 02/13/25 13:01 ONCE ONE Memantine 10 mg 02/13/25 09:00 Memantine 5 Mg Tablet PO DAILY [facility] Mirtazapine 15 mg 02/13/25 09:00 Mirtazapine 15 Mg Tablet PO DAILY [facility] Morphine Sulfate 2 mg 02/12/25 10:37 02/13/25 05:30 Morphine Sulfate (*Crx) 2 Mg/Ml Inj IV PUSH 2 mg Q2H PRN Administration Pain Rated 7-10 Ondansetron HCl 4 mg 02/12/25 10:37 02/13/25 05:45 Ondansetron Inj 4 Mg/2 Ml Vial IV PUSH 4 mg Q4H PRN Administration Nausea Pravastatin Sodium 20 mg 02/13/25 17:00 Pravastatin Sodium 20 Mg Tablet PO DAILY@1700 [facility] Quetiapine Fumarate 25 mg 02/12/25 12:36 02/12/25 16:32 Quetiapine Fumarate 25 Mg Tablet PO 25 mg PRN PRN Administration complex Radiology Results: ITS Impressions Head CT 02/12/25 09:36 IMPRESSION: No acute intracranial findings. Cervical Spine CT 02/12/25 09:45 IMPRESSION: No acute osseous abnormality cervical spine. Multilevel degenerative disc disease. Hip/Pelvis X-Ray 02/12/25 09:46 Impression: 1: Nondisplaced right femoral intertrochanteric fracture. Labs Labs: Laboratory Results - last 24 hr 02/12/25 02/13/25 09:08 05:52 WBC 9.0 6.7 RBC 3.99 L 3.81 L Hgb 11.9 L 11.1 L Hct 35.4 L 35.1 L MCV 88.7 92.1 MCH 29.8 29.1 MCHC 33.6 31.6 L RDW 12.9 13.1 Plt Count 173 152 MPV 9.9 9.8 Immature Gran % (Auto) 0.4 Neut % (Auto) 83.6 H Lymph % (Auto) 8.3 L [place] % (Auto) 7.0 Eos % (Auto) 0.4 Baso % (Auto) 0.3 Lymph # (Auto) 0.75 L [place] # (Auto) 0.6 Eos # (Auto) 0.0 Baso # (Auto) 0.0 Abs Immat Gran (auto) 0.04 H Absolute Neuts (auto) 7.5 H Absolute Nucleated RBC 0.000 Nucleated RBC % 0.0 PT 13.4 INR 1.0 APTT 26.9 Sodium 140 141 Potassium 3.6 3.4 Chloride 109 H 108 H Carbon Dioxide 23 25 Anion Gap 8 8 BUN 23 H 23 H Creatinine 0.72 0.70 Estim Creat Clear Calc 42 42 Estimated GFR > 60 > 60 Glucose 102 86 Calcium 9.2 8.9 Urine Color Yellow Urine Appearance Clear Urine pH 7.0 Ur Specific [place] 1.016 Urine Protein Negative Urine Glucose (UA) Negative Urine Ketones Trace H Ur Blood (Man) Negative Urine Nitrate Negative Urine Bilirubin Negative Urine Urobilinogen 0.2 Leukocyte Esterase Rfl Trace H Urine RBC 3-5 H Urine WBC 0-5 Ur Squamous Epith Cells None seen Urine Bacteria None seen Urine Casts 0-2 Quality VTE Prophylaxis VTE prophylaxis: mechanical ordered
--- NOTE | 2025-02-13 10:49 | WPDHPUPDATE1 ---
History and Physical Update Update Date/Time: 02/13/25 10:49 History and Physical has been reviewed, including an updated exam of the patient. There are NO changes in the patient's condition. Risks, benefits, and alternatives have been discussed and questions answered. Patient agrees to proceed with procedure.
[2025-02-13] MEDS: KETOROLAC 15 MG/ML VIAL (*BKC) IV PUSH (14:29)
[2025-02-13] MEDS: TRANEXAMIC ACID 1,000MG/ISO100 1,000 MG/100 ML BAG 200 MG IVPB (14:29)
--- NOTE | 2025-02-13 14:46 | W.PM.PROC2 ---
Procedure Note - Detailed Date of Procedure 02/13/25 Pre-op Diagnosis R Hip Intertrochanteric Fracture Post-op Diagnosis Same Procedure Performed RT Hip iM nail Surgeon Jaswant Blackwood MD [employer] 1st Assist Anesthesia General Indications This is an 79-year-old -woman who fell sustaining a right hip intertrochanteric femur fracture. Indicated for reduction and intramedullary hip screw fixation, right hip. Description of Procedure After informed consent the operative extremity was marked in the preoperative holding area. Patient received intravenous antibiotics. The patient was taken to the operative room, placed in the supine position, general anesthesia induced by the anesthesia team, and was placed on a fracture table with longitudinal traction applied to the right leg. The hip fracture was reduced to near anatomic position and verified with image intensification. A time-out was performed confirming the patient, site of the surgery and plan. The right lower extremity was prepped and draped sterilely from the knee to the iliac crest region using a ChloraPrep skin solution. Incision was made just proximal to greater trochanter down to the subcutaneous tissues. Hemostasis controlled with electrocautery. Blunt dissection through the fascia to the tip of the greater trochanter. A starter awl was placed at the tip of the greater trochanter into the medullary canal of the femur. This was checked with image intensification and was in good position. Intramedullary guide matt positioned. A one-step hand reaming done proximally. Intramedullary canal was reamed with a 12.5 millimeter flexible reamer. Neck angle selected off of preoperative radiographs temp plating. 125 degree 11mm X 36cm Nail opened on the back table and assembled. This was then inserted over the guide matt to the correct depth. Guide matt removed. Lag screw was then placed with a stab incision over the lateral femur using a 10 blade knife. Blunt dissection down to the lateral side of the bone. Soft tissue protectors placed. Guide pin placed in the center center position of the femoral head and measured. 85millimeter x 10millimeter lag screw placed to correct depth and verified with image intensification. Traction released from the leg and compression of the fracture performed with the external compression device. Proximal locking screw placed. Distal locking of the nail then performed. Stab incision made lateral distal thigh. Blunt dissection down lateral side of the femur. Soft tissue protector placed. Femur drilled from lateral to medial through the distal nail. Distal femur measured and the appropriate size screw placed. Image intensification confirmed the placement through the locking hole. Final image intensification confirmed reduction of the fracture and placement of the hardware. Wounds then thoroughly irrigated with antibiotic solution. Fascia repaired with 0 Vicryl interrupted suture. Subcutaneous tissue repaired with 00 Vicryl interrupted suture and skin repaired with subcuticular 4-0 Monocryl and Dermabond. Sterile dressings applied. Patient then awoke from anesthesia, extubated, taken to recovery room stable condition. All sponge, needle and instrument counts correct at the end the case. Implants Arthrex troch IM nail 11 x 360 mm, 85 mm x 10 mm lag screw 36 mm distal locking screw Estimated Blood Loss 100 Urine Output 550 Drains No Packing No Pathology None sent Complications None Condition Stable Disposition PACU [facility] Billing Surgery - Charge Forward: Surgery Billing ([id number])
[2025-02-13] MEDS: ceFAZolin 2 GM/D5W 50 ML 2 GM/50 ML BAG IVPB ×2 (14:47→23:04)
[2025-02-13] MEDS: BUPIVACAINE/EPINEPHRINE 0.5% 50 ML VIAL 30 ML INFILTRATE (15:27)
[2025-02-13] MEDS: LACTATED RINGERS 1,000 ML 30 ML IV CONT (15:59)
[2025-02-13] MEDS: SODIUM CHLORIDE 0.9% IV 1,000 ML 75 ML IV CONT (17:42)
[2025-02-13] MEDS: LORazepam INJ (*CRX) 2 MG/ML VIAL 0.25 MG IV PUSH (23:04)
[2025-02-14 02:29] VITALS: BP 129/64; PULSE 63; RESP 16; O2SAT 99
[2025-02-14] MEDS: MORPHINE SULFATE (*CRX) 2 MG/ML INJ IV PUSH ×3 (03:20→21:12)
[2025-02-14 05:46] VITALS: BP 158/63; PULSE 64; RESP 16; TEMP 36.8; O2SAT 98
[2025-02-14 06:17] LABS: Basophils Percent Auto 0.2 % (0.2-1.2); Eosinophils Absolute Auto 0.1 K/mm3 (0-0.3); Eosinophils Percent Auto 0.9 % (0-4.4); Hematocrit 30.5 % (37.0-47.0); Hemoglobin 9.9 g/dL (12.0-15.0); Immature Granulocyte Absolute 0.04 K/mm3 (0.00-0.031); Immature Granulocyte Percent A 0.4 % (0-0.5); Lymphocytes Absolute Auto 0.93 K/mm3 (0.9-3.2); Lymphocytes Percent Auto 10.5 % (18.3-44.2); Mean Corpuscular HGB Conc 32.5 g/dl (32-36); Mean Corpuscular Hemoglobin 29.6 pg (26-34); Mean Platelet Volume 9.7 fl (7.4-10.4); Monocytes Absolute Auto 0.9 K/mm3 (0.1-0.6); Monocytes Percent Auto 9.7 % (2.6-8.5); Neutrophils Percent Auto 78.3 % (45.5-73.1); Platelet Count Result 145 k/mm3 (150-375); Red Blood Count 3.35 M/mm3 (4.2-5.4); Red Cell Distribution Width 13.1 % (11.5-14.5); White Blood Count 8.9 K/mm3 (4.5-10.0)
[2025-02-14] MEDS: ceFAZolin 2 GM/D5W 50 ML 2 GM/50 ML BAG IVPB ×2 (06:28→14:19)
[2025-02-14 06:36] LABS: Anion Gap 9 mmol/L (4-12); Blood Urea Nitrogen 22 mg/dL (7-17); Calcium 8.2 mg/dL (8.4-10.2); Carbon Dioxide 21 mmol/L (22-30); Chloride 110 mmol/L (98-107); Estimated CRCL calculation 43 ml/min; Estimated Glomerular Filt Rate > 60; Glucose 95 mg/dL (65-110); Potassium 3.3 mmol/L (3.4-5.0); Sodium 140 mmol/L (137-145)
[2025-02-14] MEDS: SODIUM CHLORIDE 0.9% IV 1,000 ML 75 ML IV CONT (08:08)
[2025-02-14] MEDS: POTASSIUM CHLORIDE 20 MEQ ER TABLET PO (08:26)
[2025-02-14] MEDS: ESCITALOPRAM OXALATE 10 MG TABLET 20 MG PO (08:26)
[2025-02-14] MEDS: MIRTAZAPINE 15 MG TABLET PO (08:27)
[2025-02-14] MEDS: MEMANTINE 5 MG TABLET 10 MG PO (08:27)
--- NOTE | 2025-02-14 08:46 | PCOTNOTE ---
Attempted to see pt. for occupational therapy evaluation. Per nurse, Juan Roman, pt. did not sleep well and just received morphine, leading to increased confusion and is not appropriate for purposeful therapy at this time. Following
--- NOTE | 2025-02-14 09:55 | PM.PNORT ---
Progress Note: A&P Assessment and Plan (1) Closed intertrochanteric fracture of right femur: Qualifiers: Encounter type: subsequent encounter Fracture alignment: nondisplaced Fracture healing: with routine healing Qualified Code(s): S72.144D - Nondisplaced intertrochanteric fracture of right femur, subsequent encounter for closed fracture with routine healing Code(s): S72.141A - Displaced intertrochanteric fracture of right femur, initial encounter for closed fracture Status: Acute Assessment and Plan: Postoperative day 1 right hip trochanteric nail for intertrochanteric fracture. Baseline dementia, difficulty following commands. Patient may benefit from memory care facility long-term. Expected postoperative anemia. Stable at this time. Follow labs. PT/OT as tolerated given dementia. Weight bear as tolerated. DVT prophylaxis switched from aspirin to Arixtra as patient unable to take oral medication at this time. Okay with discharge when medically stable. Subjective Subjective Date/Time Seen: 02/14/25 09:55 Post Op day: 1 Principal diagnosis: Right hip fracture Interval history: patient in bed resting comfortably. Per nurse's report difficulty with dementia over night and early this morning. Patient unaware of surroundings and was trying to get out of bed and mobilize. IV anxiolytic given patient now resting comfortable. Exam Const: General: comfortable; No acute distress HENMT: Head: normal to inspection, normocephalic and atraumatic Neck: Neck: other (Nontender) Resp: Effort & Inspection: normal respiratory effort and no audible wheezes Extrem: Right upper extremity: normal to inspection Left upper extremity: normal to inspection Right lower extremity: hip/thigh Details: other ( dressing clean dry and intact. Muscle compartments soft.), lower leg ( Negative Homans sign), ankle Details: normal ROM ( dorsiflexion and plantar flexion intact) and foot Details: vascular exam Details: dorsalis pedis pulse present and normal capillary refill, tendon exam Details: active flexion normal and active extension normal and motor-sensory exam Details: light-touch normal Location: in all toes; no edema Left lower extremity: normal to inspection, ankle Details: normal ROM and foot Details: vascular exam Details: dorsalis pedis pulse present and normal capillary refill and motor-sensory exam light-touch normal in all toes; no edema Other: Negative Homans bilaterally Objective Data Vital Signs Vital Signs: Vital Signs - 24 hr 02/13/25 14:10 02/13/25 15:59 02/13/25 16:15 Temperature 98.9 F 97.0 F L Pulse Rate 84 93 85 Respiratory Rate 20 14 14 Blood Pressure 163/118 H 176/87 H 163/94 H Pulse Oximetry 100 100 100 Oxygen Delivery Room Air Simple Face Mask Simple Face Mask Oxygen Flow Rate 8 8 02/13/25 16:30 02/13/25 16:45 02/13/25 17:00 Temperature Pulse Rate 80 76 75 Respiratory Rate 18 16 16 Blood Pressure 177/74 H 175/70 H 167/76 H Pulse Oximetry 100 96 96 Oxygen Delivery Room Air Room Air Room Air Oxygen Flow Rate 02/13/25 17:11 02/13/25 17:39 02/13/25 18:56 Temperature 97.7 F 98.9 F Pulse Rate 79 83 64 Respiratory Rate 17 18 Blood Pressure 160/70 H 152/93 H 173/70 H Pulse Oximetry 98 97 Oxygen Delivery Oxygen Flow Rate 02/13/25 20:00 02/13/25 22:34 02/14/25 02:29 Temperature 99.0 F Pulse Rate 87 63 Respiratory Rate 20 16 Blood Pressure 158/92 H 129/64 Pulse Oximetry 99 99 Oxygen Delivery Room Air Oxygen Flow Rate 02/14/25 05:46 Temperature 98.3 F Pulse Rate 64 Respiratory Rate 16 Blood Pressure 158/63 H Pulse Oximetry 98 Oxygen Delivery Oxygen Flow Rate Intake/Output Intake/Output: Intake & Output 02/11/25 02/12/25 02/13/25 02/14/25 23:59 23:59 23:59 23:59 Intake Total 134 714 6846 Output Total 550 745 350 Balance -430 -445 700 Meds/Results Medications: Active Medications Generic Name Dose Route Start Last Admin Trade Name Freq PRN Reason Stop Dose Admin Acetaminophen 650 mg 02/12/25 10:37 02/12/25 16:32 Acetaminophen 325 Mg Tablet PO 650 mg Q4H PRN Administration Mild Pain (1-3) or Fever Alendronate Sodium 70 mg 02/16/25 09:00 Alendronate Sodium 70 Mg Tablet PO WEEKLY [facility] Docusate Sodium 100 mg 02/12/25 12:34 Docusate Sodium 100 Mg Capsule PO Q12H PRN Constipation Escitalopram Oxalate 20 mg 02/13/25 09:00 02/14/25 08:26 Escitalopram Oxalate 10 Mg Tablet PO 20 mg DAILY [facility] Administration Fondaparinux 2.5 mg 02/14/25 09:00 Fondaparinux Sodium 2.5 Mg/0.5 Ml Syringe SUB-Q DAILY [facility] Sodium Chloride 1,000 mls @ 75 mls/hr 02/13/25 17:11 02/14/25 08:08 Normal Saline Iv IV CONT 75 mls/hr .[id number] JOS[facility] Administration Cefazolin Sodium 2 gm in 50 mls @ 100 mls/hr 02/13/25 23:00 02/14/25 06:28 Ancef 2 Gm/D5w 50 Ml IVPB 02/14/25 15:29 100 mls/hr Q8H [facility] Administration Memantine 10 mg 02/13/25 09:00 02/14/25 08:27 Memantine 5 Mg Tablet PO 10 mg DAILY [facility] Administration Mirtazapine 15 mg 02/13/25 09:00 02/14/25 08:27 Mirtazapine 15 Mg Tablet PO 15 mg DAILY [facility] Administration Morphine Sulfate 2 mg 02/12/25 10:37 02/14/25 08:08 Morphine Sulfate (*Crx) 2 Mg/Ml Inj IV PUSH 2 mg Q2H PRN Administration Pain Rated 7-10 Naloxone HCl 0.1 mg 02/13/25 17:11 Naloxone Hcl 0.4 Mg/Ml Vial IV PUSH Q2M PRN Opiate Reversal Ondansetron HCl 4 mg 02/12/25 10:37 02/13/25 17:58 Ondansetron Inj 4 Mg/2 Ml Vial IV PUSH 4 mg Q4H PRN Administration Nausea Polyethylene Glycol 17 gm 02/14/25 09:00 Polyethylene Glycol 3350 17 Gm Powd.Pack PO QAM [facility] Pravastatin Sodium 20 mg 02/13/25 17:00 02/13/25 19:28 Pravastatin Sodium 20 Mg Tablet PO Not Given DAILY@1700 [facility] Quetiapine Fumarate 25 mg 02/12/25 12:36 02/12/25 16:32 Quetiapine Fumarate 25 Mg Tablet PO 25 mg PRN PRN Administration complex Radiology Results: ITS Impressions Head CT 02/12/25 09:36 IMPRESSION: No acute intracranial findings. Cervical Spine CT 02/12/25 09:45 IMPRESSION: No acute osseous abnormality cervical spine. Multilevel degenerative disc disease. Hip/Pelvis X-Ray 02/12/25 09:46 Impression: 1: Nondisplaced right femoral intertrochanteric fracture. Intraoperative X-Ray 02/13/25 16:19 IMPRESSION: 1. Near-anatomic alignment post internal fixation of an intertrochanteric fracture the proximal right femur. See procedure note for further detail. Labs Labs: Laboratory Results - last 24 hr 02/14/25 05:40 WBC 8.9 RBC 3.35 L Hgb 9.9 L Hct 30.5 L MCV 91.0 MCH 29.6 MCHC 32.5 RDW 13.1 Plt Count 145 L MPV 9.7 Immature Gran % (Auto) 0.4 Neut % (Auto) 78.3 H Lymph % (Auto) 10.5 L [place] % (Auto) 9.7 H Eos % (Auto) 0.9 Baso % (Auto) 0.2 Lymph # (Auto) 0.93 [place] # (Auto) 0.9 H Eos # (Auto) 0.1 Baso # (Auto) 0.0 Abs Immat Gran (auto) 0.04 H Absolute Neuts (auto) 7.0 H Absolute Nucleated RBC 0.000 Nucleated RBC % 0.0 Sodium 140 Potassium 3.3 L Chloride 110 H Carbon Dioxide 21 L Anion Gap 9 BUN 22 H Creatinine 0.67 L Estim Creat Clear Calc 43 Estimated GFR > 60 Glucose 95 Calcium 8.2 L
--- NOTE | 2025-02-14 10:27 | P.PNAN_ITS ---
Anes - Prog Note Post-Op Date/Time: 02/14/25 10:27 Cardiovascular status: normal Respiratory status: normal Airway patency: baseline Mental status: baseline Post-Op hydration status: normal Vital Signs: Last Vital Signs Temp 36.8 C 02/14/25 05:46 Pulse 64 02/14/25 05:46 Resp 16 02/14/25 05:46 BP 158/63 H 02/14/25 05:46 Pulse Ox 98 02/14/25 05:46 O2 Del Method Room Air 02/13/25 20:00 O2 Flow Rate 8 02/13/25 16:15 Pain Score (VAS): 2 I/O: Intake & Output 02/13/25 02/14/25 02/14/25 23:59 07:59 15:59 Intake Total 150 1050 Output Total 80 350 Balance 70 700 Laboratory Tests 02/14/25 05:40 02/14/25 05:40 02/14/25 05:40 WBC 8.9 RBC 3.35 L Hgb 9.9 L Hct 30.5 L MCV 91.0 MCH 29.6 MCHC 32.5 RDW 13.1 Plt Count 145 L MPV 9.7 Immature Gran % (Auto) 0.4 Neut % (Auto) 78.3 H Lymph % (Auto) 10.5 L [place] % (Auto) 9.7 H Eos % (Auto) 0.9 Baso % (Auto) 0.2 Lymph # (Auto) 0.93 [place] # (Auto) 0.9 H Eos # (Auto) 0.1 Baso # (Auto) 0.0 Abs Immat Gran (auto) 0.04 H Absolute Neuts (auto) 7.0 H Absolute Nucleated RBC 0.000 Nucleated RBC % 0.0 Sodium 140 Potassium 3.3 L Chloride 110 H Carbon Dioxide 21 L Anion Gap 9 BUN 22 H Creatinine 0.67 L Estim Creat Clear Calc 43 Estimated GFR > 60 Glucose 95 Calcium 8.2 L Post-procedural complaints: none Patient Feedback: Patient satisfied with anesthetic care.
--- NOTE | 2025-02-14 10:59 | P.PNIM_ITS ---
Progress Note: A&P Assessment and Plan (1) Closed intertrochanteric fracture of right femur: Qualifiers: Encounter type: subsequent encounter Fracture alignment: nondisplaced Fracture healing: with routine healing Qualified Code(s): S72.144D - Nondisplaced intertrochanteric fracture of right femur, subsequent encounter for closed fracture with routine healing Code(s): S72.141A - Displaced intertrochanteric fracture of right femur, initial encounter for closed fracture Status: Acute Assessment and Plan: * Head CT and C-spine CT negative for acute findings. * Hip/pelvic XR showed a nondisplaced right femoral intertrochanteric fracture. * Analgesics and antipyretics p.r.n. * Bed rest and Guallpa catheter placed. * Patient will require PT/OT postop. * Care coordination consulted for discharge planning. * Ortho following * R right intertrochanteric nail fracture repair on 02/13 * POD 1 * Progressing well from Ortho standpoint * cleared for discharge per ortho * Working w/ CC regarding rehab/SNF placement (2) Normocytic anemia: Code(s): D64.9 - Anemia, unspecified Status: Chronic Assessment and Plan: * History of normocytic anemia. * Hemoglobin 11.9 upon admission. * Transfuse if less than 7. * Monitor. * 02/14: Hgb 9.9 (3) Dementia: Qualifiers: Alzheimer's disease onset: other onset Dementia behavioral or psychological symptom: with agitation Dementia severity: severe Dementia type: Alzheimer's Qualified Code(s): G30.8 - Other Alzheimer's disease; F02.C11 - Dementia in other diseases classified elsewhere, severe, with agitation Code(s): F03.90 - Unspecified dementia, unspecified severity, without behavioral disturbance, psychotic disturbance, mood disturbance, and anxiety Status: Acute Assessment and Plan: * History of significant dementia. * Baseline is orientated to self only. * Seroquel 25 mg-50 mg p.r.n. for agitation, continued. * Some difficulty on AM of 02/14 with agitation and trying to get out of bed * IV Anxiolytic given, now resting comfortably Plan Diet: Regular, NPO at midnight GI Prophylaxis: Not currently indicated DVT Prophylaxis: SCDs IV fluids: None Lines/Tubes: Peripheral IV, Guallpa catheter Code Status: Full code Time Spent With Patient Time: -25 Subjective Date/time seen: 02/14/25 10:59 Interval history: Interval history: 79 y/o F with PMH of dementia presents here with a ground level fall and hip pain. 02/14/2025 POD 1 right hip trochanteric nail for intertrochanteric fracture. Post op pain and anemia to be expected. Continue working with PT/OT, weight bearing as tolerated. Cleared for discharge from Ortho stand point but working with CC regarding SNF placement. Review of Systems Review of Systems: All systems reviewed & are unremarkable except as noted in HPI and below (Limited, A&O x1) ROS unobtainable: Yes unobtainable due to mental status Exam Const: General: comfortable and no acute distress Other: , female, frail, nontoxic appearance HENMT: Face/Nose/Sinus: Normal nares present Mouth: Yes moist mucous membranes Eyes: General: appearance normal, both eyes and all related structures Sclera: sclerae normal Pupils: Equal, round and reactive pupils present EOM: EOMs intact bilaterally Resp: Effort & Inspection: normal respiratory effort Auscultation: clear to auscultation bilaterally Cardio: Rate: regular rate Rhythm: regular rhythm Other: S1-S2 present without murmur, rub, ectopy Skin: General skin exam: normal color and no rashes or lesions noted Wounds: no wounds Other: RLE: Dressing intact and dry Neuro: Cranial nerves: Yes Equal, round and reactive pupils present Other: A&O x1, moving all extremities Extrem: General: normal to inspection Other: DP pulses 2+ bilaterally, R hip dressing intact and dry Psych: Other: Baseline A&Ox1, difficulty following commands Objective Data Vital Signs Vital Signs: Vital Signs - 24 hr 02/13/25 14:10 02/13/25 15:59 02/13/25 16:15 Temperature 98.9 F 97.0 F L Pulse Rate 84 93 85 Respiratory Rate 20 14 14 Blood Pressure 163/118 H 176/87 H 163/94 H Pulse Oximetry 100 100 100 Oxygen Delivery Room Air Simple Face Mask Simple Face Mask Oxygen Flow Rate 8 8 02/13/25 16:30 02/13/25 16:45 02/13/25 17:00 Temperature Pulse Rate 80 76 75 Respiratory Rate 18 16 16 Blood Pressure 177/74 H 175/70 H 167/76 H Pulse Oximetry 100 96 96 Oxygen Delivery Room Air Room Air Room Air Oxygen Flow Rate 02/13/25 17:11 02/13/25 17:39 02/13/25 18:56 Temperature 97.7 F 98.9 F Pulse Rate 79 83 64 Respiratory Rate 17 18 Blood Pressure 160/70 H 152/93 H 173/70 H Pulse Oximetry 98 97 Oxygen Delivery Oxygen Flow Rate 02/13/25 20:00 02/13/25 22:34 02/14/25 02:29 Temperature 99.0 F Pulse Rate 87 63 Respiratory Rate 20 16 Blood Pressure 158/92 H 129/64 Pulse Oximetry 99 99 Oxygen Delivery Room Air Oxygen Flow Rate 02/14/25 05:46 02/14/25 08:00 Temperature 98.3 F Pulse Rate 64 Respiratory Rate 16 Blood Pressure 158/63 H Pulse Oximetry 98 Oxygen Delivery Room Air Oxygen Flow Rate Intake/Output Intake/Output: Intake & Output 02/11/25 02/12/25 02/13/25 02/14/25 23:59 23:59 23:59 23:59 Intake Total 189 702 4071 Output Total 550 745 350 Balance -430 -445 700 Meds/Results Medications: Active Medications Generic Name Dose Route Start Last Admin Trade Name Freq PRN Reason Stop Dose Admin Acetaminophen 650 mg 02/12/25 10:37 02/12/25 16:32 Acetaminophen 325 Mg Tablet PO 650 mg Q4H PRN Administration Mild Pain (1-3) or Fever Alendronate Sodium 70 mg 02/16/25 09:00 Alendronate Sodium 70 Mg Tablet PO WEEKLY JOSÉ Docusate Sodium 100 mg 02/12/25 12:34 Docusate Sodium 100 Mg Capsule PO Q12H PRN Constipation Escitalopram Oxalate 20 mg 02/13/25 09:00 02/14/25 08:26 Escitalopram Oxalate 10 Mg Tablet PO 20 mg DAILY JOSÉ Administration Fondaparinux 2.5 mg 02/14/25 09:00 Fondaparinux Sodium 2.5 Mg/0.5 Ml Syringe SUB-Q DAILY JOSÉ Sodium Chloride 1,000 mls @ 75 mls/hr 02/13/25 17:11 02/14/25 08:08 Normal Saline Iv IV CONT 75 mls/hr .[id number] JOSÉ Administration Cefazolin Sodium 2 gm in 50 mls @ 100 mls/hr 02/13/25 23:00 02/14/25 06:28 Ancef 2 Gm/D5w 50 Ml IVPB 02/14/25 15:29 100 mls/hr Q8H JOSÉ Administration Memantine 10 mg 02/13/25 09:00 02/14/25 08:27 Memantine 5 Mg Tablet PO 10 mg DAILY JOSÉ Administration Mirtazapine 15 mg 02/13/25 09:00 02/14/25 08:27 Mirtazapine 15 Mg Tablet PO 15 mg DAILY JOSÉ Administration Morphine Sulfate 2 mg 02/12/25 10:37 02/14/25 08:08 Morphine Sulfate (*Crx) 2 Mg/Ml Inj IV PUSH 2 mg Q2H PRN Administration Pain Rated 7-10 Naloxone HCl 0.1 mg 02/13/25 17:11 Naloxone Hcl 0.4 Mg/Ml Vial IV PUSH Q2M PRN Opiate Reversal Ondansetron HCl 4 mg 02/12/25 10:37 02/13/25 17:58 Ondansetron Inj 4 Mg/2 Ml Vial IV PUSH 4 mg Q4H PRN Administration Nausea Polyethylene Glycol 17 gm 02/14/25 09:00 02/14/25 10:20 Polyethylene Glycol 3350 17 Gm Powd.Pack PO Not Given QAM ON LICENSE OF [facility] Pravastatin Sodium 20 mg 02/13/25 17:00 02/13/25 19:28 Pravastatin Sodium 20 Mg Tablet PO Not Given DAILY@1700 ON LICENSE OF [facility] Quetiapine Fumarate 25 mg 02/12/25 12:36 02/12/25 16:32 Quetiapine Fumarate 25 Mg Tablet PO 25 mg PRN PRN Administration complex Radiology Results: ITS Impressions Head CT 02/12/25 09:36 IMPRESSION: No acute intracranial findings. Cervical Spine CT 02/12/25 09:45 IMPRESSION: No acute osseous abnormality cervical spine. Multilevel degenerative disc disease. Hip/Pelvis X-Ray 02/12/25 09:46 Impression: 1: Nondisplaced right femoral intertrochanteric fracture. Intraoperative X-Ray 02/13/25 16:19 IMPRESSION: 1. Near-anatomic alignment post internal fixation of an intertrochanteric fracture the proximal right femur. See procedure note for further detail. Labs Labs: Laboratory Results - last 24 hr 02/14/25 05:40 WBC 8.9 RBC 3.35 L Hgb 9.9 L Hct 30.5 L MCV 91.0 MCH 29.6 MCHC 32.5 RDW 13.1 Plt Count 145 L MPV 9.7 Immature Gran % (Auto) 0.4 Neut % (Auto) 78.3 H Lymph % (Auto) 10.5 L [place] % (Auto) 9.7 H Eos % (Auto) 0.9 Baso % (Auto) 0.2 Lymph # (Auto) 0.93 [place] # (Auto) 0.9 H Eos # (Auto) 0.1 Baso # (Auto) 0.0 Abs Immat Gran (auto) 0.04 H Absolute Neuts (auto) 7.0 H Absolute Nucleated RBC 0.000 Nucleated RBC % 0.0 Sodium 140 Potassium 3.3 L Chloride 110 H Carbon Dioxide 21 L Anion Gap 9 BUN 22 H Creatinine 0.67 L Estim Creat Clear Calc 43 Estimated GFR > 60 Glucose 95 Calcium 8.2 L Quality VTE Prophylaxis VTE prophylaxis: mechanical ordered
[2025-02-14] MEDS: FONDAPARINUX SODIUM 2.5 MG/0.5 ML SYRINGE SUB-Q (12:17)
[2025-02-14 14:39] VITALS: BP 161/70; PULSE 65; RESP 17; TEMP 36.1; O2SAT 100
--- NOTE | 2025-02-14 15:34 | PCPTNOTE ---
Attempted PT evaluation, pt refused. Pt's family agreed to try therapy tomorrow morning. Will follow.
[2025-02-14] MEDS: LORazepam INJ (*CRX) 2 MG/ML VIAL 0.25 MG IV PUSH ×2 (16:20→22:49)
[2025-02-14 18:56] VITALS: BP 126/99; PULSE 64; RESP 20; TEMP 37.1; O2SAT 99
[2025-02-14 20:00] VITALS: PULSE 64; RESP 20; O2SAT 99
[2025-02-15] MEDS: SODIUM CHLORIDE 0.9% IV 1,000 ML 75 ML IV CONT ×2 (00:10→13:53)
[2025-02-15 06:00] VITALS: BP 146/74; PULSE 70; RESP 16; TEMP 37; O2SAT 98
[2025-02-15] MEDS: LORazepam INJ (*CRX) 2 MG/ML VIAL 0.25 MG IV PUSH (07:10)
--- NOTE | 2025-02-15 12:03 | P.PNIM_ITS ---
Progress Note: A&P Assessment and Plan (1) Closed intertrochanteric fracture of right femur: Qualifiers: Encounter type: subsequent encounter Fracture alignment: nondisplaced Fracture healing: with routine healing Qualified Code(s): S72.144D - Nondisplaced intertrochanteric fracture of right femur, subsequent encounter for closed fracture with routine healing Code(s): S72.141A - Displaced intertrochanteric fracture of right femur, initial encounter for closed fracture Status: Acute Assessment and Plan: * Head CT and C-spine CT negative for acute findings. * Hip/pelvic XR showed a nondisplaced right femoral intertrochanteric fracture. * Analgesics and antipyretics p.r.n. * Bed rest and Guallpa catheter placed. * Patient will require PT/OT postop. * Care coordination consulted for discharge planning. * Ortho following * R right intertrochanteric nail fracture repair on 02/13 * POD 2 * Progressing well from Ortho standpoint * cleared for discharge per ortho * Working w/ CC regarding rehab/SNF placement * No changes today (2) Normocytic anemia: Code(s): D64.9 - Anemia, unspecified Status: Chronic Assessment and Plan: * History of normocytic anemia. * Hemoglobin 11.9 upon admission. * Transfuse if less than 7. * Monitor. * 02/15: Hgb 9.7 (3) Dementia: Qualifiers: Alzheimer's disease onset: other onset Dementia behavioral or psycholog ical symptom: with agitation Dementia severity: severe Dementia type: Alzheimer's Qualified Code(s): G30.8 - Other Alzheimer's disease; F02.C11 - Dementia in other diseases classified elsewhere, severe, with agitation Code(s): F03.90 - Unspecified dementia, unspecified severity, without behavioral disturbance, psychotic disturbance, mood disturbance, and anxiety Status: Acute Assessment and Plan: * History of significant dementia. * Baseline is orientated to self only. * Seroquel 25 mg-50 mg p.r.n. for agitation, continued. * Some difficulty on AM of 02/14 with agitation and trying to get out of bed * IV Anxiolytic given, now resting comfortably (4) Electrolyte abnormality: Code(s): E87.8 - Other disorders of electrolyte and fluid balance, not elsewhere classified Status: Acute Assessment and Plan: * In ED: K 3.6 * On 02/15, K 3.0 * Initially attempted oral supp, but pt refused * IV K 40meq * Monitor daily labs Plan Diet: Regular, NPO at midnight GI Prophylaxis: Not currently indicated DVT Prophylaxis: SCDs IV fluids: None Lines/Tubes: Peripheral IV, Guallpa catheter Code Status: Full code Time Spent With Patient Time: - Subjective Date/time seen: 02/15/25 12:03 Interval history: Interval history: 79 y/o F with PMH of dementia presents here with a ground level fall and hip pain. 02/15/2025 POD 2 right hip trochanteric nail for intertrochanteric fracture. She is progressing well post surgery in terms of pain, however working with PT/OT has proven arduous at this time, given patient's baseline dementia. We will continue to physical therapy as SNF was recommended upon discharge. Potassium was low at 3.0, will give IV K as pt refusing oral medications. Monitor daily labs. Otherwise no concerns at this time. Review of Systems Review of Systems: All systems reviewed & are unremarkable except as noted in HPI and below (Limited, A&O x1) ROS unobtainable: Yes unobtainable due to mental status Exam Const: General: comfortable and no acute distress Other: , female, frail, nontoxic appearance HENMT: Face/Nose/Sinus: Normal nares present Mouth: Yes moist mucous membranes Eyes: General: appearance normal, both eyes and all related structures Sclera: sclerae normal Pupils: Equal, round and reactive pupils present EOM: EOMs intact bilaterally Resp: Effort & Inspection: normal respiratory effort Auscultation: clear to auscultation bilaterally Cardio: Rate: regular rate Rhythm: regular rhythm Other: S1-S2 present without murmur, rub, ectopy Skin: General skin exam: normal color and no rashes or lesions noted Wounds: no wounds Other: RLE: Dressing intact and dry Neuro: Cranial nerves: Yes Equal, round and reactive pupils present Other: A&O x1, moving all extremities Extrem: General: normal to inspection Other: DP pulses 2+ bilaterally, R hip dressing intact and dry Psych: Other: Baseline A&Ox1, difficulty following commands Objective Data Vital Signs Vital Signs: Vital Signs - 24 hr 02/14/25 14:39 02/14/25 18:56 02/14/25 20:00 Temperature 96.9 F L 98.7 F Pulse Rate 65 64 64 Respiratory Rate 17 20 20 Blood Pressure 161/70 H 126/99 H Pulse Oximetry 100 99 99 Oxygen Delivery Room Air 02/15/25 06:00 02/15/25 09:26 02/15/25 09:40 Temperature 98.6 F Pulse Rate 70 Respiratory Rate 16 Blood Pressure 146/74 H Pulse Oximetry 98 Oxygen Delivery Room Air Room Air Intake/Output Intake/Output: Intake & Output 02/12/25 02/13/25 02/14/25 02/15/25 23:59 23:59 23:59 23:59 Intake Total 973 816 9573 1150 Output Total 550 745 950 350 Balance -430 -445 200 800 Meds/Results Medications: Active Medications Generic Name Dose Route Start Last Admin Trade Name Freq PRN Reason Stop Dose Admin Acetaminophen 650 mg 02/12/25 10:37 02/12/25 16:32 Acetaminophen 325 Mg Tablet PO 650 mg Q4H PRN Administration Mild Pain (1-3) or Fever Alendronate Sodium 70 mg 02/16/25 09:00 Alendronate Sodium 70 Mg Tablet PO WEEKLY JOSÉ Docusate Sodium 100 mg 02/12/25 12:34 Docusate Sodium 100 Mg Capsule PO Q12H PRN Constipation Escitalopram Oxalate 20 mg 02/13/25 09:00 02/14/25 08:26 Escitalopram Oxalate 10 Mg Tablet PO 20 mg DAILY JOSÉ Administration Fondaparinux 2.5 mg 02/14/25 09:00 02/14/25 12:17 Fondaparinux Sodium 2.5 Mg/0.5 Ml Syringe SUB-Q 2.5 mg DAILY JOSÉ Administration Sodium Chloride 1,000 mls @ 75 mls/hr 02/13/25 17:11 02/15/25 00:10 Normal Saline Iv IV CONT 75 mls/hr .[id number] JOSÉ Administration Lorazepam 0.5 mg 02/15/25 08:35 Lorazepam Inj (*Crx) 2 Mg/Ml Vial IV PUSH Q6H PRN Anxiety Memantine 10 mg 02/13/25 09:00 02/14/25 08:27 Memantine 5 Mg Tablet PO 10 mg DAILY JOSÉ Administration Mirtazapine 15 mg 02/13/25 09:00 02/14/25 08:27 Mirtazapine 15 Mg Tablet PO 15 mg DAILY JOSÉ Administration Morphine Sulfate 2 mg 02/12/25 10:37 02/14/25 21:12 Morphine Sulfate (*Crx) 2 Mg/Ml Inj IV PUSH 2 mg Q2H PRN Administration Pain Rated 7-10 Naloxone HCl 0.1 mg 02/13/25 17:11 Naloxone Hcl 0.4 Mg/Ml Vial IV PUSH Q2M PRN Opiate Reversal Ondansetron HCl 4 mg 02/12/25 10:37 02/13/25 17:58 Ondansetron Inj 4 Mg/2 Ml Vial IV PUSH 4 mg Q4H PRN Administration Nausea Polyethylene Glycol 17 gm 02/14/25 09:00 02/14/25 10:20 Polyethylene Glycol 3350 17 Gm Powd.Pack PO Not Given QAM [facility] Pravastatin Sodium 20 mg 02/13/25 17:00 02/14/25 18:33 Pravastatin Sodium 20 Mg Tablet PO Not Given DAILY@1700 [facility] Quetiapine Fumarate 25 mg 02/12/25 12:36 02/12/25 16:32 Quetiapine Fumarate 25 Mg Tablet PO 25 mg PRN PRN Administration complex Radiology Results: ITS Impressions Head CT 02/12/25 09:36 IMPRESSION: No acute intracranial findings. Cervical Spine CT 02/12/25 09:45 IMPRESSION: No acute osseous abnormality cervical spine. Multilevel degenerative disc disease. Hip/Pelvis X-Ray 02/12/25 09:46 Impression: 1: Nondisplaced right femoral intertrochanteric fracture. Intraoperative X-Ray 02/13/25 16:19 IMPRESSION: 1. Near-anatomic alignment post internal fixation of an intertrochanteric fracture the proximal right femur. See procedure note for further detail. Quality VTE Prophylaxis VTE prophylaxis: mechanical ordered
[2025-02-15 12:27] LABS: Basophils Absolute Auto 0.1 K/mm3 (0.0-0.1); Basophils Percent Auto 0.6 % (0.2-1.2); Eosinophils Absolute Auto 0.1 K/mm3 (0-0.3); Eosinophils Percent Auto 1.7 % (0-4.4); Hemoglobin 9.7 g/dL (12.0-15.0); Immature Granulocyte Absolute 0.06 K/mm3 (0.00-0.031); Immature Granulocyte Percent A 0.7 % (0-0.5); Lymphocytes Absolute Auto 0.78 K/mm3 (0.9-3.2); Lymphocytes Percent Auto 9.5 % (18.3-44.2); Mean Corpuscular HGB Conc 32.3 g/dl (32-36); Mean Corpuscular Hemoglobin 29.2 pg (26-34); Mean Corpuscular Volume 90.4 fl (80-100); Mean Platelet Volume 9.6 fl (7.4-10.4); Monocytes Absolute Auto 0.7 K/mm3 (0.1-0.6); Neutrophils Absolute Auto 6.6 K/mm3 (1.3-6.7); Neutrophils Percent Auto 79.5 % (45.5-73.1); Platelet Count Result 162 k/mm3 (150-375); Red Blood Count 3.32 M/mm3 (4.2-5.4); Red Cell Distribution Width 12.7 % (11.5-14.5); White Blood Count 8.3 K/mm3 (4.5-10.0)
[2025-02-15 12:43] LABS: Alanine Aminotransferase 22 U/L (6-35); Albumin Level 3.7 g/dL (3.5-5.1); Alkaline Phosphatase 73 U/L (38-126); Anion Gap 14 mmol/L (4-12); Aspartate Amino Transferase 52 U/L (14-36); Bilirubin,Total 0.6 mg/dL (0.2-1.3); Blood Urea Nitrogen 12 mg/dL (7-17); Calcium 8.3 mg/dL (8.4-10.2); Carbon Dioxide 17 mmol/L (22-30); Chloride 108 mmol/L (98-107); Estimated CRCL calculation 53 ml/min; Estimated Glomerular Filt Rate > 60; Glucose 82 mg/dL (65-110); Sodium 139 mmol/L (137-145)
[2025-02-15] MEDS: LORazepam INJ (*CRX) 2 MG/ML VIAL 0.5 MG IV PUSH ×2 (13:28→21:35)
[2025-02-15] MEDS: FONDAPARINUX SODIUM 2.5 MG/0.5 ML SYRINGE SUB-Q (13:29)
[2025-02-15 13:38] VITALS: BP 160/70; PULSE 77; RESP 18; O2SAT 100
[2025-02-15] MEDS: POTASSIUM CHLORIDE INJ 40 MEQ in SODIUM CHLORIDE 0.9% IV 500 ML 130 MEQ IVPB (13:53)
--- NOTE | 2025-02-15 14:06 | PM.PNORT ---
Progress Note: A&P Assessment and Plan (1) Closed intertrochanteric fracture of right femur: Qualifiers: Encounter type: subsequent encounter Fracture alignment: nondisplaced Fracture healing: with routine healing Qualified Code(s): S72.144D - Nondisplaced intertrochanteric fracture of right femur, subsequent encounter for closed fracture with routine healing Code(s): S72.141A - Displaced intertrochanteric fracture of right femur, initial encounter for closed fracture Status: Acute Assessment and Plan: POD #2: right hip trochanteric nail for intertrochanteric fracture. Baseline dementia, difficulty following commands. Patient may benefit from memory care facility long-term. Expected postoperative anemia. Stable at this time. Follow labs. PT/OT as tolerated given dementia. Weight bear as tolerated. DVT prophylaxis with Arixtra as patient unable to take oral medication at this time. Okay with discharge when medically stable. Subjective Subjective Date/Time Seen: 02/15/25 14:06 Post Op day: 1 Principal diagnosis: Right hip fracture Interval history: Patient in bed resting comfortably. Review of Systems Review of Systems: ROS unobtainable: Yes unobtainable due to mental status Exam Const: General: comfortable; No acute distress HENMT: Head: normal to inspection, normocephalic and atraumatic Neck: Neck: other (Nontender) Resp: Effort & Inspection: normal respiratory effort and no audible wheezes Extrem: Right upper extremity: normal to inspection Left upper extremity: normal to inspection Right lower extremity: hip/thigh Details: other ( dressing clean dry and intact. Muscle compartments soft.), lower leg ( Negative Homans sign), ankle Details: normal ROM ( dorsiflexion and plantar flexion intact) and foot Details: vascular exam Details: dorsalis pedis pulse present and normal capillary refill, tendon exam Details: active flexion normal and active extension normal and motor-sensory exam Details: light-touch normal Location: in all toes; no edema Left lower extremity: normal to inspection, ankle Details: normal ROM and foot Details: vascular exam Details: dorsalis pedis pulse present and normal capillary refill and motor-sensory exam light-touch normal in all toes; no edema Other: Negative Homans bilaterally Objective Data Vital Signs Vital Signs: Vital Signs - 24 hr 02/14/25 14:39 02/14/25 18:56 02/14/25 20:00 Temperature 36.1 C L 37.1 C Pulse Rate 65 64 64 Respiratory Rate 17 20 20 Blood Pressure 161/70 H 126/99 H Pulse Oximetry 100 99 99 Oxygen Delivery Room Air 02/15/25 06:00 02/15/25 09:26 02/15/25 09:40 Temperature 37.0 C Pulse Rate 70 Respiratory Rate 16 Blood Pressure 146/74 H Pulse Oximetry 98 Oxygen Delivery Room Air Room Air 02/15/25 13:38 Temperature Pulse Rate 77 Respiratory Rate 18 Blood Pressure 160/70 H Pulse Oximetry 100 Oxygen Delivery Intake/Output Intake/Output: Intake & Output 02/12/25 02/13/25 02/14/25 02/15/25 23:59 23:59 23:59 23:59 Intake Total 596 225 2912 2150 Output Total 550 745 950 350 Balance -430 -310 841 8417 Meds/Results Medications: Active Medications Generic Name Dose Route Start Last Admin Trade Name Freq PRN Reason Stop Dose Admin Acetaminophen 650 mg 02/12/25 10:37 02/12/25 16:32 Acetaminophen 325 Mg Tablet PO 650 mg Q4H PRN Administration Mild Pain (1-3) or Fever Alendronate Sodium 70 mg 02/16/25 09:00 Alendronate Sodium 70 Mg Tablet PO WEEKLY JOSÉ Docusate Sodium 100 mg 02/12/25 12:34 Docusate Sodium 100 Mg Capsule PO Q12H PRN Constipation Escitalopram Oxalate 20 mg 02/13/25 09:00 02/14/25 08:26 Escitalopram Oxalate 10 Mg Tablet PO 20 mg DAILY JOSÉ Administration Fondaparinux 2.5 mg 02/14/25 09:00 02/15/25 13:29 Fondaparinux Sodium 2.5 Mg/0.5 Ml Syringe SUB-Q 2.5 mg DAILY JOSÉ Administration Sodium Chloride 1,000 mls @ 75 mls/hr 02/13/25 17:11 02/15/25 13:53 Normal Saline Iv IV CONT 75 mls/hr .[id number] JOSÉ Administration Potassium Chloride 40 meq/ 520 mls @ 130 mls/hr 02/15/25 13:31 02/15/25 13:53 Sodium Chloride IVPB 02/15/25 17:30 130 mls/hr ONCE ONE Administration Lorazepam 0.5 mg 02/15/25 08:35 02/15/25 13:28 Lorazepam Inj (*Crx) 2 Mg/Ml Vial IV PUSH 0.5 mg Q6H PRN Administration Anxiety Memantine 10 mg 02/13/25 09:00 02/14/25 08:27 Memantine 5 Mg Tablet PO 10 mg DAILY JOSÉ Administration Mirtazapine 15 mg 02/13/25 09:00 02/14/25 08:27 Mirtazapine 15 Mg Tablet PO 15 mg DAILY JOSÉ Administration Morphine Sulfate 2 mg 02/12/25 10:37 02/14/25 21:12 Morphine Sulfate (*Crx) 2 Mg/Ml Inj IV PUSH 2 mg Q2H PRN Administration Pain Rated 7-10 Naloxone HCl 0.1 mg 02/13/25 17:11 Naloxone Hcl 0.4 Mg/Ml Vial IV PUSH Q2M PRN Opiate Reversal Ondansetron HCl 4 mg 02/12/25 10:37 02/13/25 17:58 Ondansetron Inj 4 Mg/2 Ml Vial IV PUSH 4 mg Q4H PRN Administration Nausea Polyethylene Glycol 17 gm 02/14/25 09:00 02/14/25 10:20 Polyethylene Glycol 3350 17 Gm Powd.Pack PO Not Given QAM [facility] Pravastatin Sodium 20 mg 02/13/25 17:00 02/14/25 18:33 Pravastatin Sodium 20 Mg Tablet PO Not Given DAILY@1700 [facility] Quetiapine Fumarate 25 mg 02/12/25 12:36 02/12/25 16:32 Quetiapine Fumarate 25 Mg Tablet PO 25 mg PRN PRN Administration complex Radiology Results: ITS Impressions Head CT 02/12/25 09:36 IMPRESSION: No acute intracranial findings. Cervical Spine CT 02/12/25 09:45 IMPRESSION: No acute osseous abnormality cervical spine. Multilevel degenerative disc disease. Hip/Pelvis X-Ray 02/12/25 09:46 Impression: 1: Nondisplaced right femoral intertrochanteric fracture. Intraoperative X-Ray 02/13/25 16:19 IMPRESSION: 1. Near-anatomic alignment post internal fixation of an intertrochanteric fracture the proximal right femur. See procedure note for further detail. Labs Labs: Laboratory Results - last 24 hr 02/15/25 12:20 WBC 8.3 RBC 3.32 L Hgb 9.7 L Hct 30.0 L MCV 90.4 MCH 29.2 MCHC 32.3 RDW 12.7 Plt Count 162 MPV 9.6 Immature Gran % (Auto) 0.7 H Neut % (Auto) 79.5 H Lymph % (Auto) 9.5 L [place] % (Auto) 8.0 Eos % (Auto) 1.7 Baso % (Auto) 0.6 Lymph # (Auto) 0.78 L [place] # (Auto) 0.7 H Eos # (Auto) 0.1 Baso # (Auto) 0.1 Abs Immat Gran (auto) 0.06 H Absolute Neuts (auto) 6.6 Absolute Nucleated RBC 0.000 Nucleated RBC % 0.0 Sodium 139 Potassium 3.0 L Chloride 108 H Carbon Dioxide 17 L Anion Gap 14 H BUN 12 D Creatinine 0.54 L Estim Creat Clear Calc 53 Estimated GFR > 60 Glucose 82 Calcium 8.3 L Total Bilirubin 0.6 AST 52 H ALT 22 Alkaline Phosphatase 73 Total Protein 6.0 L Albumin 3.7
[2025-02-15] MEDS: MORPHINE SULFATE (*CRX) 2 MG/ML INJ IV PUSH ×2 (17:56→22:26)
[2025-02-15 22:00] VITALS: BP 156/72; PULSE 71; RESP 18; TEMP 36.2; O2SAT 99
[2025-02-16] MEDS: LORazepam INJ (*CRX) 2 MG/ML VIAL 0.5 MG IV PUSH ×4 (03:24→21:50)
[2025-02-16] MEDS: MORPHINE SULFATE (*CRX) 2 MG/ML INJ IV PUSH ×3 (04:49→21:02)
[2025-02-16 05:48] LABS: Basophils Percent Auto 0.5 % (0.2-1.2); Eosinophils Absolute Auto 0.2 K/mm3 (0-0.3); Eosinophils Percent Auto 2.8 % (0-4.4); Hematocrit 28.7 % (37.0-47.0); Hemoglobin 9.2 g/dL (12.0-15.0); Immature Granulocyte Absolute 0.04 K/mm3 (0.00-0.031); Immature Granulocyte Percent A 0.5 % (0-0.5); Lymphocytes Absolute Auto 0.97 K/mm3 (0.9-3.2); Lymphocytes Percent Auto 12.3 % (18.3-44.2); Mean Corpuscular HGB Conc 32.1 g/dl (32-36); Mean Corpuscular Hemoglobin 29.1 pg (26-34); Mean Corpuscular Volume 90.8 fl (80-100); Mean Platelet Volume 9.5 fl (7.4-10.4); Monocytes Absolute Auto 0.8 K/mm3 (0.1-0.6); Monocytes Percent Auto 9.7 % (2.6-8.5); Neutrophils Absolute Auto 5.8 K/mm3 (1.3-6.7); Neutrophils Percent Auto 74.2 % (45.5-73.1); Platelet Count Result 180 k/mm3 (150-375); Red Blood Count 3.16 M/mm3 (4.2-5.4); Red Cell Distribution Width 12.8 % (11.5-14.5); White Blood Count 7.9 K/mm3 (4.5-10.0)
[2025-02-16 06:00] VITALS: BP 164/69; PULSE 77; RESP 20; TEMP 35.9; O2SAT 100
[2025-02-16 06:00] LABS: Alanine Aminotransferase 20 U/L (6-35); Albumin Level 3.6 g/dL (3.5-5.1); Alkaline Phosphatase 75 U/L (38-126); Anion Gap 12 mmol/L (4-12); Aspartate Amino Transferase 50 U/L (14-36); Bilirubin,Total 0.7 mg/dL (0.2-1.3); Blood Urea Nitrogen 9 mg/dL (7-17); Calcium 8.5 mg/dL (8.4-10.2); Carbon Dioxide 19 mmol/L (22-30); Chloride 109 mmol/L (98-107); Estimated CRCL calculation 51 ml/min; Estimated Glomerular Filt Rate > 60; Glucose 77 mg/dL (65-110); Potassium 3.7 mmol/L (3.4-5.0); Sodium 140 mmol/L (137-145)
--- NOTE | 2025-02-16 07:35 | P.PNIM_ITS ---
Progress Note: A&P Assessment and Plan (1) Closed intertrochanteric fracture of right femur: Qualifiers: Encounter type: subsequent encounter Fracture alignment: nondisplaced Fracture healing: with routine healing Qualified Code(s): S72.144D - Nondisplaced intertrochanteric fracture of right femur, subsequent encounter for closed fracture with routine healing Code(s): S72.141A - Displaced intertrochanteric fracture of right femur, initial encounter for closed fracture Status: Acute Assessment and Plan: * Head CT and C-spine CT negative for acute findings. * Hip/pelvic XR showed a nondisplaced right femoral intertrochanteric fracture. * Analgesics and antipyretics p.r.n. * Bed rest and Guallpa catheter placed. * Patient will require PT/OT postop. * Care coordination consulted for discharge planning. * Ortho following * R right intertrochanteric nail fracture repair on 02/13 * POD 3 * Progressing well from Ortho standpoint * cleared for discharge per ortho * Switched to Arixtra for IV dvt prophylaxis as pt refusing oral medications * Working w/ CC regarding rehab/SNF placement * No changes today (2) Normocytic anemia: Code(s): D64.9 - Anemia, unspecified Status: Chronic Assessment and Plan: * History of normocytic anemia. * Hemoglobin 11.9 upon admission. * Transfuse if less than 7. * Monitor. * 02/16: Hgb 9.2 (3) Dementia: Qualifiers: Alzheimer's disease onset: other onset Dementia behavioral or psychological symptom: with agitation Dementia severity: severe Dementia type: Alzheimer's Qualified Code(s): G30.8 - Other Alzheimer's disease; F02.C11 - Dementia in other diseases classified elsewhere, severe, with agitation Code(s): F03.90 - Unspecified dementia, unspecified severity, without behavioral disturbance, psychotic disturbance, mood disturbance, and anxiety Status: Acute Assessment and Plan: * History of significant dementia. * Baseline is orientated to self only. * Ativan 0.5mg IV q4hr PRN (4) Electrolyte abnormality: Code(s): E87.8 - Other disorders of electrolyte and fluid balance, not elsewhere classified Status: Acute Assessment and Plan: * In ED: K 3.6 * On 02/16, K 3.7 * Monitor daily labs Plan Diet: Regular, NPO at midnight GI Prophylaxis: Not currently indicated DVT Prophylaxis: SCDs IV fluids: None Lines/Tubes: Peripheral IV, Guallpa catheter Code Status: Full code Time Spent With Patient Time: Subjective Date/time seen: 02/16/25 07:35 Interval history: Interval history: 79 y/o F with PMH of dementia presents here with a ground level fall and hip pain. 02/16/2025 POD 3 right hip trochanteric nail for intertrochanteric fracture. Continues to progress well post surgical repair of hip. Working with CC regarding SNF placement as PT/OT recommend continued work with rehab upon discharge. Review of Systems Review of Systems: All systems reviewed & are unremarkable except as noted in HPI and below (Limited, A&O x1) ROS unobtainable: Yes unobtainable due to mental status Exam Const: General: comfortable and no acute distress Other: , female, frail, nontoxic appearance HENMT: Face/Nose/Sinus: Normal nares present Mouth: Yes moist mucous membranes Eyes: General: appearance normal, both eyes and all related structures Sclera: sclerae normal Pupils: Equal, round and reactive pupils present EOM: EOMs intact bilaterally Resp: Effort & Inspection: normal respiratory effort Auscultation: clear to auscultation bilaterally Cardio: Rate: regular rate Rhythm: regular rhythm Other: S1-S2 present without murmur, rub, ectopy Skin: General skin exam: normal color and no rashes or lesions noted Wounds: no wounds Other: RLE: Dressing intact and dry Neuro: Cranial nerves: Yes Equal, round and reactive pupils present Other: A&O x1, moving all extremities Extrem: General: normal to inspection Other: DP pulses 2+ bilaterally, R hip dressing intact and dry Psych: Other: Baseline A&Ox1, difficulty following commands Objective Data Vital Signs Vital Signs: Vital Signs - 24 hr 02/15/25 09:26 02/15/25 09:40 02/15/25 13:38 Temperature Pulse Rate 77 Respiratory Rate 18 Blood Pressure 160/70 H Pulse Oximetry 100 Oxygen Delivery Room Air Room Air 02/15/25 20:00 02/15/25 22:00 02/16/25 06:00 Temperature 97.1 F L 96.6 F L Pulse Rate 71 77 Respiratory Rate 18 20 Blood Pressure 156/72 H 164/69 H Pulse Oximetry 99 100 Oxygen Delivery Room Air Intake/Output Intake/Output: Intake & Output 02/13/25 02/14/25 02/15/25 02/16/25 23:59 23:59 23:59 23:59 Intake Total 300 1150 2150 0 Output Total 959 866 1139 600 Balance -445 200 800 -600 Meds/Results Medications: Active Medications Generic Name Dose Route Start Last Admin Trade Name Freq PRN Reason Stop Dose Admin Acetaminophen 650 mg 02/12/25 10:37 02/12/25 16:32 Acetaminophen 325 Mg Tablet PO 650 mg Q4H PRN Administration Mild Pain (1-3) or Fever Alendronate Sodium 70 mg 02/16/25 09:00 Alendronate Sodium 70 Mg Tablet PO WEEKLY JOSÉ Docusate Sodium 100 mg 02/12/25 12:34 Docusate Sodium 100 Mg Capsule PO Q12H PRN Constipation Escitalopram Oxalate 20 mg 02/13/25 09:00 02/15/25 18:53 Escitalopram Oxalate 10 Mg Tablet PO Not Given DAILY JOSÉ Fondaparinux 2.5 mg 02/14/25 09:00 02/15/25 13:29 Fondaparinux Sodium 2.5 Mg/0.5 Ml Syringe SUB-Q 2.5 mg DAILY JOSÉ Administration Sodium Chloride 1,000 mls @ 75 mls/hr 02/13/25 17:11 02/15/25 13:53 Normal Saline Iv IV CONT 75 mls/hr .[id number] JOSÉ Administration Lorazepam 0.5 mg 02/15/25 08:35 02/16/25 03:24 Lorazepam Inj (*Crx) 2 Mg/Ml Vial IV PUSH 0.5 mg Q6H PRN Administration Anxiety Memantine 10 mg 02/13/25 09:00 02/15/25 18:53 Memantine 5 Mg Tablet PO Not Given DAILY JOSÉ Mirtazapine 15 mg 02/13/25 09:00 02/15/25 18:53 Mirtazapine 15 Mg Tablet PO Not Given DAILY JOSÉ Morphine Sulfate 2 mg 02/12/25 10:37 02/16/25 04:49 Morphine Sulfate (*Crx) 2 Mg/Ml Inj IV PUSH 2 mg Q2H PRN Administration Pain Rated 7-10 Naloxone HCl 0.1 mg 02/13/25 17:11 Naloxone Hcl 0.4 Mg/Ml Vial IV PUSH Q2M PRN Opiate Reversal Ondansetron HCl 4 mg 02/12/25 10:37 02/13/25 17:58 Ondansetron Inj 4 Mg/2 Ml Vial IV PUSH 4 mg Q4H PRN Administration Nausea Polyethylene Glycol 17 gm 02/14/25 09:00 02/15/25 18:53 Polyethylene Glycol 3350 17 Gm Powd.Pack PO Not Given QAM [facility] Pravastatin Sodium 20 mg 02/13/25 17:00 02/15/25 18:53 Pravastatin Sodium 20 Mg Tablet PO Not Given DAILY@1700 [facility] Quetiapine Fumarate 25 mg 02/12/25 12:36 02/12/25 16:32 Quetiapine Fumarate 25 Mg Tablet PO 25 mg PRN PRN Administration complex Radiology Results: ITS Impressions Head CT 02/12/25 09:36 IMPRESSION: No acute intracranial findings. Cervical Spine CT 02/12/25 09:45 IMPRESSION: No acute osseous abnormality cervical spine. Multilevel degenerative disc disease. Hip/Pelvis X-Ray 02/12/25 09:46 Impression: 1: Nondisplaced right femoral intertrochanteric fracture. Intraoperative X-Ray 02/13/25 16:19 IMPRESSION: 1. Near-anatomic alignment post internal fixation of an intertrochanteric fracture the proximal right femur. See procedure note for further detail. Labs Labs: Laboratory Results - last 24 hr 02/15/25 02/16/25 12:20 05:11 WBC 8.3 7.9 RBC 3.32 L 3.16 L Hgb 9.7 L 9.2 L Hct 30.0 L 28.7 L MCV 90.4 90.8 MCH 29.2 29.1 MCHC 32.3 32.1 RDW 12.7 12.8 Plt Count 162 180 MPV 9.6 9.5 Immature Gran % (Auto) 0.7 H 0.5 Neut % (Auto) 79.5 H 74.2 H Lymph % (Auto) 9.5 L 12.3 L [place] % (Auto) 8.0 9.7 H Eos % (Auto) 1.7 2.8 Baso % (Auto) 0.6 0.5 Lymph # (Auto) 0.78 L 0.97 [place] # (Auto) 0.7 H 0.8 H Eos # (Auto) 0.1 0.2 Baso # (Auto) 0.1 0.0 Abs Immat Gran (auto) 0.06 H 0.04 H Absolute Neuts (auto) 6.6 5.8 Absolute Nucleated RBC 0.000 0.000 Nucleated RBC % 0.0 0.0 Sodium 139 140 Potassium 3.0 L 3.7 Chloride 108 H 109 H Carbon Dioxide 17 L 19 L Anion Gap 14 H 12 BUN 12 D 9 Creatinine 0.54 L 0.56 L Estim Creat Clear Calc 53 51 Estimated GFR > 60 > 60 Glucose 82 77 Calcium 8.3 L 8.5 Total Bilirubin 0.6 0.7 AST 52 H 50 H ALT 22 20 Alkaline Phosphatase 73 75 Total Protein 6.0 L 6.0 L Albumin 3.7 3.6 Quality VTE Prophylaxis VTE prophylaxis: mechanical ordered and pharmacologic ordered
[2025-02-16] MEDS: SODIUM CHLORIDE 0.9% IV 1,000 ML 75 ML IV CONT (08:20)
[2025-02-16] MEDS: ESCITALOPRAM OXALATE 10 MG TABLET 20 MG PO (08:21)
[2025-02-16] MEDS: polyethylene glycoL 3350 17 GM POWD.PACK PO (08:21)
[2025-02-16] MEDS: FONDAPARINUX SODIUM 2.5 MG/0.5 ML SYRINGE SUB-Q (08:21)
[2025-02-16] MEDS: MEMANTINE 5 MG TABLET 10 MG PO (08:21)
[2025-02-16] MEDS: ALENDRONATE SODIUM 70 MG TABLET PO (08:21)
[2025-02-16] MEDS: MIRTAZAPINE 15 MG TABLET PO (08:21)
--- NOTE | 2025-02-16 08:38 | PCPTNOTE ---
1st attempt, checked with KATYA Pham before entering and RN requested that we let her sleep as long as possible . Will attempted again.
[2025-02-16 13:47] VITALS: BP 139/59; PULSE 70; RESP 16; TEMP 36.5; O2SAT 100
[2025-02-16 20:00] VITALS: PULSE 70; RESP 16; O2SAT 100
[2025-02-16 20:25] VITALS: PULSE 81; O2SAT 95
[2025-02-16 22:00] VITALS: BP 157/67; PULSE 79; RESP 16; TEMP 36.1; O2SAT 99
[2025-02-17] MEDS: SODIUM CHLORIDE 0.9% IV 1,000 ML 75 ML IV CONT ×2 (00:35→11:51)
[2025-02-17] MEDS: MORPHINE SULFATE (*CRX) 2 MG/ML INJ IV PUSH ×3 (01:02→22:20)
[2025-02-17] MEDS: LORazepam INJ (*CRX) 2 MG/ML VIAL 0.5 MG IV PUSH ×3 (02:21→20:36)
[2025-02-17 05:47] LABS: Basophils Percent Auto 0.6 % (0.2-1.2); Eosinophils Absolute Auto 0.2 K/mm3 (0-0.3); Eosinophils Percent Auto 3.3 % (0-4.4); Hematocrit 27.5 % (37.0-47.0); Hemoglobin 8.9 g/dL (12.0-15.0); Immature Granulocyte Absolute 0.04 K/mm3 (0.00-0.031); Immature Granulocyte Percent A 0.6 % (0-0.5); Lymphocytes Absolute Auto 1.04 K/mm3 (0.9-3.2); Lymphocytes Percent Auto 14.9 % (18.3-44.2); Mean Corpuscular HGB Conc 32.4 g/dl (32-36); Mean Corpuscular Hemoglobin 29.3 pg (26-34); Mean Corpuscular Volume 90.5 fl (80-100); Mean Platelet Volume 9.6 fl (7.4-10.4); Monocytes Absolute Auto 0.7 K/mm3 (0.1-0.6); Monocytes Percent Auto 9.5 % (2.6-8.5); Neutrophils Percent Auto 71.1 % (45.5-73.1); Platelet Count Result 198 k/mm3 (150-375); Red Blood Count 3.04 M/mm3 (4.2-5.4); Red Cell Distribution Width 12.9 % (11.5-14.5)
[2025-02-17 06:00] VITALS: BP 173/77; PULSE 87; RESP 16; TEMP 36; O2SAT 100
[2025-02-17 06:00] LABS: Alanine Aminotransferase 21 U/L (6-35); Albumin Level 3.5 g/dL (3.5-5.1); Alkaline Phosphatase 67 U/L (38-126); Anion Gap 11 mmol/L (4-12); Aspartate Amino Transferase 48 U/L (14-36); Bilirubin,Total 0.5 mg/dL (0.2-1.3); Blood Urea Nitrogen 7 mg/dL (7-17); Calcium 8.6 mg/dL (8.4-10.2); Carbon Dioxide 19 mmol/L (22-30); Chloride 109 mmol/L (98-107); Estimated CRCL calculation 62 ml/min; Estimated Glomerular Filt Rate > 60; Glucose 73 mg/dL (65-110); Potassium 3.8 mmol/L (3.4-5.0); Sodium 139 mmol/L (137-145)
--- NOTE | 2025-02-17 07:52 | P.PNIM_ITS ---
Progress Note: A&P Assessment and Plan (1) Closed intertrochanteric fracture of right femur: Qualifiers: Encounter type: subsequent encounter Fracture alignment: nondisplaced Fracture healing: with routine healing Qualified Code(s): S72.144D - Nondisplaced intertrochanteric fracture of right femur, subsequent encounter for closed fracture with routine healing Code(s): S72.141A - Displaced intertrochanteric fracture of right femur, initial encounter for closed fracture Status: Acute Assessment and Plan: * Head CT and C-spine CT negative for acute findings. * Hip/pelvic XR showed a nondisplaced right femoral intertrochanteric fracture. * Analgesics and antipyretics p.r.n. * Bed rest and Guallpa catheter placed. * Patient will require PT/OT postop. * Care coordination consulted for discharge planning. * Ortho following * R right intertrochanteric nail fracture repair on 02/13 * POD 4 * Progressing well from Ortho standpoint * cleared for discharge per ortho * Switched to Arixtra for IV dvt prophylaxis as pt refusing oral medications * Working w/ CC regarding rehab/SNF placement * No changes today (2) Normocytic anemia: Code(s): D64.9 - Anemia, unspecified Status: Chronic Assessment and Plan: * History of normocytic anemia. * Hemoglobin 11.9 upon admission. * Transfuse if less than 7. * Monitor. * 02/16: Hgb 8.9 (3) Dementia: Qualifiers: Alzheimer's disease onset: other onset Dementia behavioral or psychological symptom: with agitation Dementia severity: severe Dementia type: Alzheimer's Qualified Code(s): G30.8 - Other Alzheimer's disease; F02.C11 - Dementia in other diseases classified elsewhere, severe, with agitation Code(s): F03.90 - Unspecified dementia, unspecified severity, without behavioral disturbance, psychotic disturbance, mood disturbance, and anxiety Status: Acute Assessment and Plan: * History of significant dementia. * Baseline is orientated to self only. * Ativan 0.5mg IV q4hr PRN (4) Electrolyte abnormality: Code(s): E87.8 - Other disorders of electrolyte and fluid balance, not elsewhere classified Status: Acute Assessment and Plan: * In ED: K 3.6 * On 02/17, K 3.8 * Monitor daily labs Plan Diet: Regular, NPO at midnight GI Prophylaxis: Not currently indicated DVT Prophylaxis: SCDs IV fluids: None Lines/Tubes: Peripheral IV, Guallpa catheter Code Status: Full code Subjective Date/time seen: 02/17/25 07:52 Interval history: Interval history: 79 y/o F with PMH of dementia presents here with a ground level fall and hip pain. 02/17/2025 POD 4 right hip trochanteric nail for intertrochanteric fracture. No concerns or changes today. Still waiting authorization for SNF. Review of Systems Review of Systems: All systems reviewed & are unremarkable except as noted in HPI and below (Limited, A&O x1) ROS unobtainable: Yes unobtainable due to mental status Exam Const: General: comfortable and no acute distress Other: , female, frail, nontoxic appearance HENMT: Face/Nose/Sinus: Normal nares present Mouth: Yes moist mucous membranes Eyes: General: appearance normal, both eyes and all related structures Sclera: sclerae normal Pupils: Equal, round and reactive pupils present EOM: EOMs intact bilaterally Resp: Effort & Inspection: normal respiratory effort Auscultation: clear to auscultation bilaterally Cardio: Rate: regular rate Rhythm: regular rhythm Other: S1-S2 present without murmur, rub, ectopy Skin: General skin exam: normal color and no rashes or lesions noted Wounds: no wounds Other: RLE: Dressing intact and dry Neuro: Cranial nerves: Yes Equal, round and reactive pupils present Other: A&O x1, moving all extremities Extrem: General: normal to inspection Other: DP pulses 2+ bilaterally, R hip dressing intact and dry Hip/thigh: Dressing clean and intact. Normal range of motion. Neurovascularly intact. Psych: Other: Baseline A&Ox1, difficulty following commands Objective Data Vital Signs Vital Signs: Vital Signs - 24 hr 02/16/25 08:35 02/16/25 13:47 02/16/25 20:00 Temperature 97.7 F Pulse Rate 70 70 Respiratory Rate 16 16 Blood Pressure 139/59 L Pulse Oximetry 100 100 Oxygen Delivery Room Air Room Air Fraction of Inspired Oxygen 02/16/25 20:25 02/16/25 22:00 02/17/25 06:00 Temperature 96.9 F L 96.8 F L Pulse Rate 81 79 87 Respiratory Rate 16 16 Blood Pressure 157/67 H 173/77 H Pulse Oximetry 95 99 100 Oxygen Delivery Room Air Fraction of Inspired Oxygen 21 Intake/Output Intake/Output: Intake & Output 02/14/25 02/15/25 02/16/25 02/17/25 23:59 23:59 23:59 23:59 Intake Total 1150 2150 2000 0 Output Total 950 1350 1300 800 Balance 200 800 700 -800 Meds/Results Medications: Active Medications Generic Name Dose Route Start Last Admin Trade Name Freq PRN Reason Stop Dose Admin Acetaminophen 650 mg 02/12/25 10:37 02/12/25 16:32 Acetaminophen 325 Mg Tablet PO 650 mg Q4H PRN Administration Mild Pain (1-3) or Fever Alendronate Sodium 70 mg 02/16/25 09:00 02/16/25 08:21 Alendronate Sodium 70 Mg Tablet PO 70 mg WEEKLY JOSÉ Administration Docusate Sodium 100 mg 02/12/25 12:34 Docusate Sodium 100 Mg Capsule PO Q12H PRN Constipation Escitalopram Oxalate 20 mg 02/13/25 09:00 02/16/25 08:21 Escitalopram Oxalate 10 Mg Tablet PO 20 mg DAILY JOSÉ Administration Fondaparinux 2.5 mg 02/14/25 09:00 02/16/25 08:21 Fondaparinux Sodium 2.5 Mg/0.5 Ml Syringe SUB-Q 2.5 mg DAILY JOSÉ Administration Sodium Chloride 1,000 mls @ 75 mls/hr 02/13/25 17:11 02/17/25 00:35 Normal Saline Iv IV CONT 75 mls/hr .[id number] JOSÉ Administration Lorazepam 0.5 mg 02/16/25 11:05 02/17/25 06:40 Lorazepam Inj (*Crx) 2 Mg/Ml Vial IV PUSH 0.5 mg Q4H PRN Administration Anxiety Memantine 10 mg 02/13/25 09:00 02/16/25 08:21 Memantine 5 Mg Tablet PO 10 mg DAILY JOSÉ Administration Mirtazapine 15 mg 02/13/25 09:00 02/16/25 08:21 Mirtazapine 15 Mg Tablet PO 15 mg DAILY JOSÉ Administration Morphine Sulfate 2 mg 02/12/25 10:37 02/17/25 05:40 Morphine Sulfate (*Crx) 2 Mg/Ml Inj IV PUSH 2 mg Q2H PRN Administration Pain Rated 7-10 Naloxone HCl 0.1 mg 02/13/25 17:11 Naloxone Hcl 0.4 Mg/Ml Vial IV PUSH Q2M PRN Opiate Reversal Ondansetron HCl 4 mg 02/12/25 10:37 02/13/25 17:58 Ondansetron Inj 4 Mg/2 Ml Vial IV PUSH 4 mg Q4H PRN Administration Nausea Polyethylene Glycol 17 gm 02/14/25 09:00 02/16/25 08:21 Polyethylene Glycol 3350 17 Gm Powd.Pack PO 17 gm QAM JOSÉ Administration Pravastatin Sodium 20 mg 02/13/25 17:00 02/16/25 16:16 Pravastatin Sodium 20 Mg Tablet PO Not Given DAILY@1700 JOSÉ Quetiapine Fumarate 25 mg 02/12/25 12:36 02/12/25 16:32 Quetiapine Fumarate 25 Mg Tablet PO 25 mg PRN PRN Administration complex Senna/Docusate Sodium 1 tab 02/16/25 11:04 Senna/Docusate Sodium Tablet PO DAILY PRN constipation Radiology Results: ITS Impressions Head CT 02/12/25 09:36 IMPRESSION: No acute intracranial findings. Cervical Spine CT 02/12/25 09:45 IMPRESSION: No acute osseous abnormality cervical spine. Multilevel degenerative disc disease. Hip/Pelvis X-Ray 02/12/25 09:46 Impression: 1: Nondisplaced right femoral intertrochanteric fracture. Intraoperative X-Ray 02/13/25 16:19 IMPRESSION: 1. Near-anatomic alignment post internal fixation of an intertrochanteric fracture the proximal right femur. See procedure note for further detail. Labs Labs: Laboratory Results - last 24 hr 02/17/25 05:15 WBC 7.0 RBC 3.04 L Hgb 8.9 L Hct 27.5 L MCV 90.5 MCH 29.3 MCHC 32.4 RDW 12.9 Plt Count 198 MPV 9.6 Immature Gran % (Auto) 0.6 H Neut % (Auto) 71.1 Lymph % (Auto) 14.9 L [place] % (Auto) 9.5 H Eos % (Auto) 3.3 Baso % (Auto) 0.6 Lymph # (Auto) 1.04 [place] # (Auto) 0.7 H Eos # (Auto) 0.2 Baso # (Auto) 0.0 Abs Immat Gran (auto) 0.04 H Absolute Neuts (auto) 5.0 Absolute Nucleated RBC 0.000 Nucleated RBC % 0.0 Sodium 139 Potassium 3.8 Chloride 109 H Carbon Dioxide 19 L Anion Gap 11 BUN 7 Creatinine 0.45 L Estim Creat Clear Calc 62 Estimated GFR > 60 Glucose 73 Calcium 8.6 Total Bilirubin 0.5 AST 48 H ALT 21 Alkaline Phosphatase 67 Total Protein 6.0 L Albumin 3.5 Quality VTE Prophylaxis VTE prophylaxis: mechanical ordered and pharmacologic ordered
[2025-02-17 07:59] VITALS: O2SAT 100
[2025-02-17] MEDS: FONDAPARINUX SODIUM 2.5 MG/0.5 ML SYRINGE SUB-Q (09:01)
[2025-02-17] MEDS: polyethylene glycoL 3350 17 GM POWD.PACK PO (09:01)
[2025-02-17] MEDS: ESCITALOPRAM OXALATE 10 MG TABLET 20 MG PO (09:01)
[2025-02-17] MEDS: MEMANTINE 5 MG TABLET 10 MG PO (09:01)
[2025-02-17] MEDS: QUEtiapine FUMARATE 25 MG TABLET PO (09:02)
[2025-02-17] MEDS: MIRTAZAPINE 15 MG TABLET PO (09:02)
[2025-02-17] MEDS: SENNA/DOCUSATE SODIUM TABLET 1 TAB PO (09:02)
--- NOTE | 2025-02-17 09:39 | PCOTNOTE ---
Attempted to see pt for OT treatment this AM. Pt is currently not able to follow direction and/or commands despite redirection/attention to task from therapist. Pt is also not opening eyes despite cues. RN states that pt has been yelling out and not able to following direction this shift. Will attempt when more appropriate per poc duration/frequency.
[2025-02-17 14:00] VITALS: BP 150/62; PULSE 65; RESP 16; TEMP 36.6; O2SAT 100
[2025-02-17 20:00] VITALS: PULSE 96; RESP 18; O2SAT 83
[2025-02-17 20:45] VITALS: PULSE 96; RESP 18; TEMP 36.1; O2SAT 83
[2025-02-18] MEDS: MORPHINE SULFATE (*CRX) 2 MG/ML INJ IV PUSH ×3 (00:52→16:14)
[2025-02-18] MEDS: SODIUM CHLORIDE 0.9% IV 1,000 ML 75 ML IV CONT ×2 (02:47→16:07)
[2025-02-18 05:52] LABS: Basophils Percent Auto 0.5 % (0.2-1.2); Eosinophils Absolute Auto 0.2 K/mm3 (0-0.3); Eosinophils Percent Auto 3.4 % (0-4.4); Hematocrit 27.7 % (37.0-47.0); Hemoglobin 9.2 g/dL (12.0-15.0); Immature Granulocyte Absolute 0.07 K/mm3 (0.00-0.031); Immature Granulocyte Percent A 1.1 % (0-0.5); Lymphocytes Absolute Auto 0.83 K/mm3 (0.9-3.2); Lymphocytes Percent Auto 12.8 % (18.3-44.2); Mean Corpuscular HGB Conc 33.2 g/dl (32-36); Mean Corpuscular Hemoglobin 29.1 pg (26-34); Mean Corpuscular Volume 87.7 fl (80-100); Mean Platelet Volume 9.2 fl (7.4-10.4); Monocytes Absolute Auto 0.6 K/mm3 (0.1-0.6); Monocytes Percent Auto 9.4 % (2.6-8.5); Neutrophils Absolute Auto 4.7 K/mm3 (1.3-6.7); Neutrophils Percent Auto 72.8 % (45.5-73.1); Platelet Count Result 225 k/mm3 (150-375); Red Blood Count 3.16 M/mm3 (4.2-5.4); Red Cell Distribution Width 12.8 % (11.5-14.5); White Blood Count 6.5 K/mm3 (4.5-10.0)
[2025-02-18 06:00] VITALS: PULSE 76; RESP 12; TEMP 36.1; O2SAT 98
[2025-02-18 06:02] LABS: Alanine Aminotransferase 22 U/L (6-35); Albumin Level 3.4 g/dL (3.5-5.1); Alkaline Phosphatase 66 U/L (38-126); Anion Gap 12 mmol/L (4-12); Aspartate Amino Transferase 43 U/L (14-36); Bilirubin,Total 0.7 mg/dL (0.2-1.3); Blood Urea Nitrogen 5 mg/dL (7-17); Calcium 8.5 mg/dL (8.4-10.2); Carbon Dioxide 18 mmol/L (22-30); Chloride 109 mmol/L (98-107); Estimated CRCL calculation 66 ml/min; Estimated Glomerular Filt Rate > 60; Glucose 78 mg/dL (65-110); Potassium 3.1 mmol/L (3.4-5.0); Sodium 139 mmol/L (137-145)
[2025-02-18] MEDS: ESCITALOPRAM OXALATE 10 MG TABLET 20 MG PO (09:35)
[2025-02-18] MEDS: MIRTAZAPINE 15 MG TABLET PO (09:36)
[2025-02-18] MEDS: MEMANTINE 5 MG TABLET 10 MG PO (09:36)
[2025-02-18] MEDS: FONDAPARINUX SODIUM 2.5 MG/0.5 ML SYRINGE SUB-Q (09:36)
[2025-02-18] MEDS: polyethylene glycoL 3350 17 GM POWD.PACK PO (09:40)
[2025-02-18] MEDS: QUEtiapine FUMARATE 25 MG TABLET PO ×2 (09:40→17:04)
[2025-02-18] MEDS: POTASSIUM CHLORIDE 20 MEQ ER TABLET 40 MEQ PO (09:40)
[2025-02-18] MEDS: LORazepam INJ (*CRX) 2 MG/ML VIAL 0.5 MG IV PUSH (11:20)
--- NOTE | 2025-02-18 13:10 | P.PNIM_ITS ---
Progress Note: A&P Assessment and Plan (1) Closed intertrochanteric fracture of right femur: Qualifiers: Encounter type: subsequent encounter Fracture alignment: nondisplaced Fracture healing: with routine healing Qualified Code(s): S72.144D - Nondisplaced intertrochanteric fracture of right femur, subsequent encounter for closed fracture with routine healing Code(s): S72.141A - Displaced intertrochanteric fracture of right femur, initial encounter for closed fracture Status: Acute Assessment and Plan: * Head CT and C-spine CT negative for acute findings. * Hip/pelvic XR showed a nondisplaced right femoral intertrochanteric fracture. * Analgesics and antipyretics p.r.n. * Bed rest and Guallpa catheter placed. * Patient will require PT/OT postop. * Care coordination consulted for discharge planning. * Ortho following * R right intertrochanteric nail fracture repair on 02/13 * POD 5 * Progressing well from Ortho standpoint * cleared for discharge per ortho * Switched to Arixtra for IV dvt prophylaxis as pt refusing oral medications * Working w/ CC regarding rehab/SNF placement * No changes today (2) Normocytic anemia: Code(s): D64.9 - Anemia, unspecified Status: Chronic Assessment and Plan: * History of normocytic anemia. * Hemoglobin 11.9 upon admission. * Transfuse if less than 7. * Monitor. * 02/16: Hgb 9.2 (3) Dementia: Qualifiers: Dementia type: Alzheimer's Alzheimer's disease onset: other onset Dementia severity: severe Dementia behavioral or psychological symptom: with agitation Qualified Code(s): G30.8 - Other Alzheimer's disease; F02.C11 - Dementia in other diseases classified elsewhere, severe, with agitation Code(s): F03.90 - Unspecified dementia, unspecified severity, without behavioral disturbance, psychotic disturbance, mood disturbance, and anxiety Status: Acute Assessment and Plan: * History of significant dementia. * Baseline is orientated to self only. * Ativan 0.5mg IV q4hr PRN * Low appetite since surgery, will consult with GI regarding possible tube placement for feedings * Wagon Drill Operator consulted (4) Electrolyte abnormality: Code(s): E87.8 - Other disorders of electrolyte and fluid balance, not elsewhere classified Status: Acute Assessment and Plan: * In ED: K 3.6 * On 02/17, K 3.8 * Monitor daily labs Plan Diet: Regular, NPO at midnight GI Prophylaxis: Not currently indicated DVT Prophylaxis: SCDs IV fluids: None Lines/Tubes: Peripheral IV, Guallpa catheter Code Status: Full code Subjective Date/time seen: 02/18/25 13:10 Interval history: Interval history: 79 y/o F with PMH of dementia presents here with a ground level fall and hip pain. 02/18/2025 POD 5 right hip trochanteric nail for intertrochanteric fracture. No concerns or changes today, although patient continues to have difficulties with appetite. Wagon Drill Operator has been consulted and discussed with regarding possible PEG placement given patients underlying dementia. GI to be consulted for this discussion. Review of Systems Review of Systems: All systems reviewed & are unremarkable except as noted in HPI and below (Limited, A&O x1) ROS unobtainable: Yes unobtainable due to mental status Exam Const: General: comfortable and no acute distress Other: , female, frail, nontoxic appearance HENMT: Face/Nose/Sinus: Normal nares present Mouth: Yes moist mucous membranes Eyes: General: appearance normal, both eyes and all related structures Sclera: sclerae normal Pupils: Equal, round and reactive pupils present EOM: EOMs intact bilaterally Resp: Effort & Inspection: normal respiratory effort Auscultation: clear to auscultation bilaterally Cardio: Rate: regular rate Rhythm: regular rhythm Other: S1-S2 present without murmur, rub, ectopy Skin: General skin exam: normal color and no rashes or lesions noted Wounds: no wounds Other: RLE: Dressing intact and dry Neuro: Cranial nerves: Yes Equal, round and reactive pupils present Other: A&O x1, moving all extremities Extrem: General: normal to inspection Other: DP pulses 2+ bilaterally, R hip dressing intact and dry Hip/thigh: Dressing clean and intact. Normal range of motion. Neurovascularly intact. Psych: Other: Baseline A&Ox1, difficulty following commands Objective Data Vital Signs Vital Signs: Vital Signs - 24 hr 02/17/25 14:00 02/17/25 20:00 02/17/25 20:45 Temperature 97.9 F 97.0 F L Pulse Rate 65 96 96 Respiratory Rate 16 18 18 Blood Pressure 150/62 H Pulse Oximetry 100 83 L 83 L Oxygen Delivery Room Air Fraction of Inspired Oxygen 02/18/25 06:00 02/18/25 09:35 Temperature 96.9 F L Pulse Rate 76 Respiratory Rate 12 Blood Pressure Pulse Oximetry 98 Oxygen Delivery Room Air Fraction of Inspired Oxygen Intake/Output Intake/Output: Intake & Output 02/15/25 02/16/25 02/17/25 02/18/25 23:59 23:59 23:59 23:59 Intake Total 2150 2000 845 1000 Output Total 1350 1300 1700 1150 Balance 800 700 -165 -150 Meds/Results Medications: Active Medications Generic Name Dose Route Start Last Admin Trade Name Freq PRN Reason Stop Dose Admin Acetaminophen 650 mg 02/12/25 10:37 02/12/25 16:32 Acetaminophen 325 Mg Tablet PO 650 mg Q4H PRN Administration Mild Pain (1-3) or Fever Alendronate Sodium 70 mg 02/16/25 09:00 02/16/25 08:21 Alendronate Sodium 70 Mg Tablet PO 70 mg WEEKLY JOSÉ Administration Docusate Sodium 100 mg 02/12/25 12:34 Docusate Sodium 100 Mg Capsule PO Q12H PRN Constipation Escitalopram Oxalate 20 mg 02/13/25 09:00 02/18/25 09:35 Escitalopram Oxalate 10 Mg Tablet PO 20 mg DAILY JOSÉ Administration Fondaparinux 2.5 mg 02/14/25 09:00 02/18/25 09:36 Fondaparinux Sodium 2.5 Mg/0.5 Ml Syringe SUB-Q 2.5 mg DAILY JOSÉ Administration Sodium Chloride 1,000 mls @ 75 mls/hr 02/13/25 17:11 02/18/25 02:47 Normal Saline Iv IV CONT 75 mls/hr .[id number] JOSÉ Administration Lorazepam 0.5 mg 02/16/25 11:05 02/18/25 11:20 Lorazepam Inj (*Crx) 2 Mg/Ml Vial IV PUSH 0.5 mg Q4H PRN Administration Anxiety Memantine 10 mg 02/13/25 09:00 02/18/25 09:36 Memantine 5 Mg Tablet PO 10 mg DAILY JOSÉ Administration Mirtazapine 15 mg 02/13/25 09:00 02/18/25 09:36 Mirtazapine 15 Mg Tablet PO 15 mg DAILY JOSÉ Administration Morphine Sulfate 2 mg 02/12/25 10:37 02/18/25 04:44 Morphine Sulfate (*Crx) 2 Mg/Ml Inj IV PUSH 2 mg Q2H PRN Administration Pain Rated 7-10 Naloxone HCl 0.1 mg 02/13/25 17:11 Naloxone Hcl 0.4 Mg/Ml Vial IV PUSH Q2M PRN Opiate Reversal Ondansetron HCl 4 mg 02/12/25 10:37 02/13/25 17:58 Ondansetron Inj 4 Mg/2 Ml Vial IV PUSH 4 mg Q4H PRN Administration Nausea Polyethylene Glycol 17 gm 02/14/25 09:00 02/18/25 09:40 Polyethylene Glycol 3350 17 Gm Powd.Pack PO 17 gm QAM JOSÉ Administration Pravastatin Sodium 20 mg 02/13/25 17:00 02/17/25 17:22 Pravastatin Sodium 20 Mg Tablet PO Not Given DAILY@1700 JOSÉ Quetiapine Fumarate 25 mg 02/12/25 12:36 02/18/25 09:40 Quetiapine Fumarate 25 Mg Tablet PO 25 mg PRN PRN Administration complex Senna/Docusate Sodium 1 tab 02/16/25 11:04 02/17/25 09:02 Senna/Docusate Sodium Tablet PO 1 tab DAILY PRN Administration constipation Radiology Results: ITS Impressions Head CT 02/12/25 09:36 IMPRESSION: No acute intracranial findings. Cervical Spine CT 02/12/25 09:45 IMPRESSION: No acute osseous abnormality cervical spine. Multilevel degenerative disc disease. Hip/Pelvis X-Ray 02/12/25 09:46 Impression: 1: Nondisplaced right femoral intertrochanteric fracture. Intraoperative X-Ray 02/13/25 16:19 IMPRESSION: 1. Near-anatomic alignment post internal fixation of an intertrochanteric fracture the proximal right femur. See procedure note for further detail. Labs Labs: Laboratory Results - last 24 hr 02/18/25 05:31 WBC 6.5 RBC 3.16 L Hgb 9.2 L Hct 27.7 L MCV 87.7 MCH 29.1 MCHC 33.2 RDW 12.8 Plt Count 225 MPV 9.2 Immature Gran % (Auto) 1.1 H Neut % (Auto) 72.8 Lymph % (Auto) 12.8 L [place] % (Auto) 9.4 H Eos % (Auto) 3.4 Baso % (Auto) 0.5 Lymph # (Auto) 0.83 L [place] # (Auto) 0.6 Eos # (Auto) 0.2 Baso # (Auto) 0.0 Abs Immat Gran (auto) 0.07 H Absolute Neuts (auto) 4.7 Absolute Nucleated RBC 0.000 Nucleated RBC % 0.0 Sodium 139 Potassium 3.1 L Chloride 109 H Carbon Dioxide 18 L Anion Gap 12 BUN 5 L Creatinine 0.42 L Estim Creat Clear Calc 66 Estimated GFR > 60 Glucose 78 Calcium 8.5 Total Bilirubin 0.7 AST 43 H ALT 22 Alkaline Phosphatase 66 Total Protein 6.0 L Albumin 3.4 L Quality VTE Prophylaxis VTE prophylaxis: mechanical ordered and pharmacologic ordered
[2025-02-18 14:00] VITALS: BP 157/72; PULSE 68; RESP 16; TEMP 36.6; O2SAT 98
[2025-02-18] MEDS: PRAVASTATIN SODIUM 20 MG TABLET PO (17:04)
[2025-02-18 21:47] VITALS: PULSE 77; RESP 18; TEMP 36.4; O2SAT 98
[2025-02-19 05:15] VITALS: PULSE 68; RESP 14; TEMP 36.6; O2SAT 95
[2025-02-19] MEDS: SODIUM CHLORIDE 0.9% IV 1,000 ML 75 ML IV CONT (05:51)
[2025-02-19 06:19] LABS: Basophils Absolute Auto 0.1 K/mm3 (0.0-0.1); Basophils Percent Auto 0.6 % (0.2-1.2); Eosinophils Absolute Auto 0.3 K/mm3 (0-0.3); Eosinophils Percent Auto 3.2 % (0-4.4); Hematocrit 28.6 % (37.0-47.0); Hemoglobin 9.5 g/dL (12.0-15.0); Immature Granulocyte Absolute 0.13 K/mm3 (0.00-0.031); Immature Granulocyte Percent A 1.7 % (0-0.5); Lymphocytes Absolute Auto 0.86 K/mm3 (0.9-3.2); Lymphocytes Percent Auto 11.1 % (18.3-44.2); Mean Corpuscular HGB Conc 33.2 g/dl (32-36); Mean Corpuscular Hemoglobin 29.3 pg (26-34); Mean Corpuscular Volume 88.3 fl (80-100); Mean Platelet Volume 9.2 fl (7.4-10.4); Monocytes Absolute Auto 0.7 K/mm3 (0.1-0.6); Monocytes Percent Auto 9.4 % (2.6-8.5); Neutrophils Absolute Auto 5.8 K/mm3 (1.3-6.7); Platelet Count Result 274 k/mm3 (150-375); Red Blood Count 3.24 M/mm3 (4.2-5.4); White Blood Count 7.8 K/mm3 (4.5-10.0)
[2025-02-19 06:35] LABS: Alanine Aminotransferase 23 U/L (6-35); Albumin Level 3.8 g/dL (3.5-5.1); Alkaline Phosphatase 75 U/L (38-126); Anion Gap 14 mmol/L (4-12); Aspartate Amino Transferase 43 U/L (14-36); Bilirubin,Total 0.9 mg/dL (0.2-1.3); Blood Urea Nitrogen 4 mg/dL (7-17); Carbon Dioxide 16 mmol/L (22-30); Chloride 110 mmol/L (98-107); Estimated CRCL calculation 73 ml/min; Estimated Glomerular Filt Rate > 60; Glucose 88 mg/dL (65-110); Potassium 3.5 mmol/L (3.4-5.0); Sodium 140 mmol/L (137-145)
[2025-02-19 08:00] VITALS: O2SAT 95
--- NOTE | 2025-02-19 08:17 | P.CONGI_ITS ---
Assessment and Plan Assessment and plan (1) Weight loss: Code(s): R63.4 - Abnormal weight loss Status: Acute Assessment and Plan: Technically, the patient is a candidate for PEG placement. However, there is significant family disagreement regarding this intervention. Her son, who is the legal guardian, advocates for 'everything done,' while her current prefers no PEG and hospice care. We will await the family's final decision before scheduling the procedure GI Consult Note Consult date/time: 02/19/25 08:17 HPI: Ms. Carlos Hassan, 79, admitted on February 12, 2025, for a right hip fracture, underwent repair the following day. She carries a diagnosis of Alzheimer's disease and is not currently anticoagulated. Given her profound cognitive impairment and inability to maintain oral intake, a consultation for potential PEG placement has been initiated. Nursing staff consistently reports baseline agitation and significant difficulty in achieving adequate sedation to keep her calm Review of Systems 2 Review of Systems: All systems reviewed & are unremarkable except as noted in HPI and below PMFSH Past Medical History Medical History Dementia History of colon cancer Early satiety Weight loss Surgical History Surgical History H/O left hemicolectomy Family History Family History Mother No pertinent past medical history Father No pertinent past medical history Social History Social History Smoking status: Former smoker Alcohol intake: never Alcohol use details: social Substance use: never Living arrangements: with family Additional living arrangements comments: Occupation/Education: retired Gender identity (if verbalized by the patient): Female Sexual Orientation (if Verbalized by the Patient): Straight or Heterosexual Spiritual care concerns: No Meds Home Medications and Allergies Home Medications ?Medication ?Instructions ?Recorded ?Confirmed ?Type pravastatin 20 mg tablet 20 mg PO DAILY 06/29/20 02/12/25 History alendronate 70 mg tablet 70 mg PO WEEKLY 02/12/25 02/12/25 History escitalopram oxalate 20 mg tablet 20 mg PO DAILY 02/12/25 02/12/25 History memantine 5 mg tablet 10 mg PO DAILY 02/12/25 02/12/25 History mirtazapine 15 mg tablet 15 mg PO DAILY 02/12/25 02/12/25 History quetiapine 25 mg tablet 25 mg PO PRN PRN complex 02/12/25 02/12/25 History quetiapine 50 mg tablet 50 mg PO PRN PRN complex 02/12/25 02/12/25 History Allergies Allergy/AdvReac Type Severity Reaction Status Date / Time No Known Allergies Allergy Verified 02/13/25 14:45 Vital Signs Vital Signs - 24 hr 02/18/25 09:35 02/18/25 14:00 02/18/25 20:00 Temperature 97.8 F Pulse Rate 68 Respiratory Rate 16 Blood Pressure 157/72 H Pulse Oximetry 98 Oxygen Delivery Room Air Room Air 02/18/25 21:47 02/19/25 05:15 Temperature 97.6 F 97.9 F Pulse Rate 77 68 Respiratory Rate 18 14 Blood Pressure Pulse Oximetry 98 95 Oxygen Delivery Exam 2 Narrative: At the moment of examination, the patient has just received a dose of intravenous lorazepam and was deeply sedated. Therefore, abdominal examination was deferred. However, the patient appeared malnourished, chronically ill and severely contractured. Results Labs 02/19/25 05:43 02/19/25 05:43 Labs: Short CBC 02/19/25 Range/Units 05:43 WBC 7.8 (4.5-10.0) K/mm3 Hgb 9.5 L (12.0-15.0) g/dL Hct 28.6 L (37.0-47.0) % Plt Count 274 (150-375) k/mm3 BMP 02/19/25 05:43 Sodium 140 Potassium 3.5 Chloride 110 H Carbon Dioxide 16 L BUN 4 L Creatinine 0.37 L Glucose 88 Calcium 9.0 Liver Function 02/19/25 Range/Units 05:43 Total Bilirubin 0.9 (0.2-1.3) mg/dL AST 43 H (14-36) U/L ALT 23 (6-35) U/L Alkaline Phosphatase 75 (38-126) U/L Albumin 3.8 (3.5-5.1) g/dL
[2025-02-19] MEDS: LORazepam INJ (*CRX) 2 MG/ML VIAL 0.5 MG IV PUSH ×2 (09:53→13:37)
[2025-02-19] MEDS: FONDAPARINUX SODIUM 2.5 MG/0.5 ML SYRINGE SUB-Q (09:59)
--- NOTE | 2025-02-19 10:26 | P.PNGI_ITS ---
Progress Note: A&P Assessment and Plan (1) Weight loss: Code(s): R63.4 - Abnormal weight loss Status: Acute Assessment and Plan: Amendment to previous note: Spoke to nurse in charge of the patient, clarifying that the current power or assistant attorney general is held by her current and not by her son. Therefore, the final decision made by the is to transfer the patient to a hospice, and a PEG placement will not be performed. Subjective Date/time seen: 02/19/25 10:26 Objective Data Vital Signs Vital Signs: Vital Signs - 24 hr 02/18/25 14:00 02/18/25 20:00 02/18/25 21:47 Temperature 97.8 F 97.6 F Pulse Rate 68 77 Respiratory Rate 16 18 Blood Pressure 157/72 H Pulse Oximetry 98 98 Oxygen Delivery Room Air 02/19/25 05:15 Temperature 97.9 F Pulse Rate 68 Respiratory Rate 14 Blood Pressure Pulse Oximetry 95 Oxygen Delivery Intake/Output Intake/Output: Intake & Output 02/16/25 02/17/25 02/18/25 02/19/25 23:59 23:59 23:59 23:59 Intake Total 2000 845 2000 1030 Output Total 1300 1700 2250 750 Balance 700 855 -250 280 Meds/Results Medications: Active Medications Generic Name Dose Route Start Last Admin Trade Name Freq PRN Reason Stop Dose Admin Acetaminophen 650 mg 02/12/25 10:37 02/12/25 16:32 Acetaminophen 325 Mg Tablet PO 650 mg Q4H PRN Administration Mild Pain (1-3) or Fever Alendronate Sodium 70 mg 02/16/25 09:00 02/16/25 08:21 Alendronate Sodium 70 Mg Tablet PO 70 mg WEEKLY JOSÉ Administration Docusate Sodium 100 mg 02/12/25 12:34 Docusate Sodium 100 Mg Capsule PO Q12H PRN Constipation Escitalopram Oxalate 20 mg 02/13/25 09:00 02/19/25 10:08 Escitalopram Oxalate 10 Mg Tablet PO Not Given DAILY JOSÉ Fondaparinux 2.5 mg 02/14/25 09:00 02/19/25 09:59 Fondaparinux Sodium 2.5 Mg/0.5 Ml Syringe SUB-Q 2.5 mg DAILY JOSÉ Administration Sodium Chloride 1,000 mls @ 75 mls/hr 02/13/25 17:11 02/19/25 05:51 Normal Saline Iv IV CONT 75 mls/hr .[id number] JOSÉ Administration Lorazepam 0.5 mg 02/16/25 11:05 02/19/25 09:53 Lorazepam Inj (*Crx) 2 Mg/Ml Vial IV PUSH 0.5 mg Q4H PRN Administration Anxiety Memantine 10 mg 02/13/25 09:00 02/19/25 10:08 Memantine 5 Mg Tablet PO Not Given DAILY JOSÉ Mirtazapine 15 mg 02/13/25 09:00 02/19/25 09:59 Mirtazapine 15 Mg Tablet PO Not Given DAILY JOSÉ Morphine Sulfate 2 mg 02/12/25 10:37 02/18/25 16:14 Morphine Sulfate (*Crx) 2 Mg/Ml Inj IV PUSH 2 mg Q2H PRN Administration Pain Rated 7-10 Naloxone HCl 0.1 mg 02/13/25 17:11 Naloxone Hcl 0.4 Mg/Ml Vial IV PUSH Q2M PRN Opiate Reversal Ondansetron HCl 4 mg 02/12/25 10:37 02/13/25 17:58 Ondansetron Inj 4 Mg/2 Ml Vial IV PUSH 4 mg Q4H PRN Administration Nausea Polyethylene Glycol 17 gm 02/14/25 09:00 02/19/25 09:59 Polyethylene Glycol 3350 17 Gm Powd.Pack PO Not Given QAM [facility] Pravastatin Sodium 20 mg 02/13/25 17:00 02/18/25 17:04 Pravastatin Sodium 20 Mg Tablet PO 20 mg DAILY@1700 JOSÉ Administration Quetiapine Fumarate 25 mg 02/12/25 12:36 02/18/25 17:04 Quetiapine Fumarate 25 Mg Tablet PO 25 mg PRN PRN Administration complex Senna/Docusate Sodium 1 tab 02/16/25 11:04 02/17/25 09:02 Senna/Docusate Sodium Tablet PO 1 tab DAILY PRN Administration constipation Radiology Results: ITS Impressions Head CT 02/12/25 09:36 IMPRESSION: No acute intracranial findings. Cervical Spine CT 02/12/25 09:45 IMPRESSION: No acute osseous abnormality cervical spine. Multilevel degenerative disc disease. Hip/Pelvis X-Ray 02/12/25 09:46 Impression: 1: Nondisplaced right femoral intertrochanteric fracture. Intraoperative X-Ray 02/13/25 16:19 IMPRESSION: 1. Near-anatomic alignment post internal fixation of an intertrochanteric fracture the proximal right femur. See procedure note for further detail. Labs Labs: Laboratory Results - last 24 hr 02/19/25 05:43 WBC 7.8 RBC 3.24 L Hgb 9.5 L Hct 28.6 L MCV 88.3 MCH 29.3 MCHC 33.2 RDW 13.0 Plt Count 274 MPV 9.2 Immature Gran % (Auto) 1.7 H Neut % (Auto) 74.0 H Lymph % (Auto) 11.1 L [place] % (Auto) 9.4 H Eos % (Auto) 3.2 Baso % (Auto) 0.6 Lymph # (Auto) 0.86 L [place] # (Auto) 0.7 H Eos # (Auto) 0.3 Baso # (Auto) 0.1 Abs Immat Gran (auto) 0.13 H Absolute Neuts (auto) 5.8 Absolute Nucleated RBC 0.000 Nucleated RBC % 0.0 Sodium 140 Potassium 3.5 Chloride 110 H Carbon Dioxide 16 L Anion Gap 14 H BUN 4 L Creatinine 0.37 L Estim Creat Clear Calc 73 Estimated GFR > 60 Glucose 88 Calcium 9.0 Total Bilirubin 0.9 AST 43 H ALT 23 Alkaline Phosphatase 75 Total Protein 6.0 L Albumin 3.8
--- NOTE | 2025-02-19 14:41 | P.PNIM_ITS ---
Progress Note: A&P Assessment and Plan (1) Closed intertrochanteric fracture of right femur: Qualifiers: Encounter type: subsequent encounter Fracture alignment: nondisplaced Fracture healing: with routine healing Qualified Code(s): S72.144D - Nondisplaced intertrochanteric fracture of right femur, subsequent encounter for closed fracture with routine healing Code(s): S72.141A - Displaced intertrochanteric fracture of right femur, initial encounter for closed fracture Status: Acute Assessment and Plan: * Head CT and C-spine CT negative for acute findings. * Hip/pelvic XR showed a nondisplaced right femoral intertrochanteric fracture. * Analgesics and antipyretics p.r.n. * Bed rest and Guallpa catheter placed. * Patient will require PT/OT postop. * Care coordination consulted for discharge planning. * Ortho following * R right intertrochanteric nail fracture repair on 02/13 * POD 6 * Progressing well from Ortho standpoint * cleared for discharge per ortho * Switched to Arixtra for IV dvt prophylaxis as pt refusing oral medications * No changes or concerns at this time (2) Dementia: Qualifiers: Dementia type: Alzheimer's Alzheimer's disease onset: other onset Dementia severity: severe Dementia behavioral or psychological symptom: with agitation Qualified Code(s): G30.8 - Other Alzheimer's disease; F02.C11 - Dementia in other diseases classified elsewhere, severe, with agitation Code(s): F03.90 - Unspecified dementia, unspecified severity, without behavioral disturbance, psychotic disturbance, mood disturbance, and anxiety Status: Acute Assessment and Plan: * History of significant dementia. * Baseline is orientated to self only. * Ativan 0.5mg IV q4hr PRN * Low appetite since surgery, will consult with GI regarding possible tube placement for feedings * GI consulted regarding possible PEG tube versus appetite stimulant * , who is power of corporate associate attorney, decided on hospice, refused PEG tube placement (3) Normocytic anemia: Code(s): D64.9 - Anemia, unspecified Status: Chronic Assessment and Plan: * History of normocytic anemia. * Hemoglobin 11.9 upon admission. * Transfuse if less than 7. * Monitor. (4) Electrolyte abnormality: Code(s): E87.8 - Other disorders of electrolyte and fluid balance, not elsewhere classified Status: Acute Assessment and Plan: * In ED: K 3.6 * On 02/17, K 3.8 * Monitor daily labs Plan Diet: Regular, NPO at midnight GI Prophylaxis: Not currently indicated DVT Prophylaxis: SCDs IV fluids: None Lines/Tubes: Peripheral IV, Guallpa catheter Code Status: DNR Time Spent With Patient Time: Subjective Date/time seen: 02/19/25 14:41 Interval history: Interval history: 79 y/o F with PMH of dementia presents here with a ground level fall and hip pain. 02/18/2025 POD 6 right hip trochanteric nail for intertrochanteric fracture. Given patient's overall decrease in baseline functioning, discussed with her and sister regarding further steps at this point. GI consult was initiated for possible PEG tube placement versus appetite stimulant versus hospice and decided to pursue hospice and chose [facility]. [facility] referral sent and pt has been admitted as GIP. Updated code status to DNR. Continue with Ativan 1 mg IV q.4 hours Review of Systems Review of Systems: All systems reviewed & are unremarkable except as noted in HPI and below (Limited, A&O x1) ROS unobtainable: Yes unobtainable due to mental status Exam Const: General: comfortable and no acute distress Other: , female, frail, nontoxic appearance HENMT: Face/Nose/Sinus: Normal nares present Mouth: Yes moist mucous membranes Eyes: General: appearance normal, both eyes and all related structures Sclera: sclerae normal Pupils: Equal, round and reactive pupils present EOM: EOMs intact bilaterally Resp: Effort & Inspection: normal respiratory effort Auscultation: clear to auscultation bilaterally Cardio: Rate: regular rate Rhythm: regular rhythm Other: S1-S2 present without murmur, rub, ectopy Skin: General skin exam: normal color and no rashes or lesions noted Wounds: no wounds Other: RLE: Dressing intact and dry Neuro: Cranial nerves: Yes Equal, round and reactive pupils present Other: A&O x1, moving all extremities Extrem: General: normal to inspection Other: DP pulses 2+ bilaterally, R hip dressing intact and dry Hip/thigh: Dressing clean and intact. Normal range of motion. Neurovascularly intact. Psych: Other: Baseline A&Ox1, difficulty following commands Objective Data Vital Signs Vital Signs: Vital Signs - 24 hr 02/18/25 20:00 02/18/25 21:47 02/19/25 05:15 Temperature 97.6 F 97.9 F Pulse Rate 77 68 Respiratory Rate 18 14 Pulse Oximetry 98 95 Oxygen Delivery Room Air 02/19/25 08:00 Temperature Pulse Rate Respiratory Rate Pulse Oximetry 95 Oxygen Delivery Room Air Intake/Output Intake/Output: Intake & Output 02/16/25 02/17/25 02/18/25 02/19/25 23:59 23:59 23:59 23:59 Intake Total 1999 845 1999 1030 Output Total 1300 1700 2250 750 Balance 196 -275 -354 280 Meds/Results Medications: Active Medications Generic Name Dose Route Start Last Admin Trade Name Freq PRN Reason Stop Dose Admin Acetaminophen 650 mg 02/12/25 10:37 02/12/25 16:32 Acetaminophen 325 Mg Tablet PO 650 mg Q4H PRN Administration Mild Pain (1-3) or Fever Alendronate Sodium 70 mg 02/16/25 09:00 02/16/25 08:21 Alendronate Sodium 70 Mg Tablet PO 70 mg WEEKLY JOSÉ Administration Docusate Sodium 100 mg 02/12/25 12:34 Docusate Sodium 100 Mg Capsule PO Q12H PRN Constipation Escitalopram Oxalate 20 mg 02/13/25 09:00 02/19/25 10:08 Escitalopram Oxalate 10 Mg Tablet PO Not Given DAILY JOSÉ Fondaparinux 2.5 mg 02/14/25 09:00 02/19/25 09:59 Fondaparinux Sodium 2.5 Mg/0.5 Ml Syringe SUB-Q 2.5 mg DAILY JOSÉ Administration Sodium Chloride 1,000 mls @ 75 mls/hr 02/13/25 17:11 02/19/25 05:51 Normal Saline Iv IV CONT 75 mls/hr .[id number] JOSÉ Administration Lorazepam 1 mg 02/19/25 13:58 Lorazepam Inj (*Crx) 2 Mg/Ml Vial IV PUSH Q4H PRN Anxiety Memantine 10 mg 02/13/25 09:00 02/19/25 10:08 Memantine 5 Mg Tablet PO Not Given DAILY JOSÉ Mirtazapine 15 mg 02/13/25 09:00 02/19/25 09:59 Mirtazapine 15 Mg Tablet PO Not Given DAILY JOSÉ Morphine Sulfate 2 mg 02/12/25 10:37 02/18/25 16:14 Morphine Sulfate (*Crx) 2 Mg/Ml Inj IV PUSH 2 mg Q2H PRN Administration Pain Rated 7-10 Naloxone HCl 0.1 mg 02/13/25 17:11 Naloxone Hcl 0.4 Mg/Ml Vial IV PUSH Q2M PRN Opiate Reversal Ondansetron HCl 4 mg 02/12/25 10:37 02/13/25 17:58 Ondansetron Inj 4 Mg/2 Ml Vial IV PUSH 4 mg Q4H PRN Administration Nausea Polyethylene Glycol 17 gm 02/14/25 09:00 02/19/25 09:59 Polyethylene Glycol 3350 17 Gm Powd.Pack PO Not Given QAM JOSÉ Pravastatin Sodium 20 mg 02/13/25 17:00 02/18/25 17:04 Pravastatin Sodium 20 Mg Tablet PO 20 mg DAILY@1700 JOSÉ Administration Quetiapine Fumarate 25 mg 02/12/25 12:36 02/18/25 17:04 Quetiapine Fumarate 25 Mg Tablet PO 25 mg PRN PRN Administration complex Senna/Docusate Sodium 1 tab 02/16/25 11:04 02/17/25 09:02 Senna/Docusate Sodium Tablet PO 1 tab DAILY PRN Administration constipation Radiology Results: ITS Impressions Head CT 02/12/25 09:36 IMPRESSION: No acute intracranial findings. Cervical Spine CT 02/12/25 09:45 IMPRESSION: No acute osseous abnormality cervical spine. Multilevel degenerative disc disease. Hip/Pelvis X-Ray 02/12/25 09:46 Impression: 1: Nondisplaced right femoral intertrochanteric fracture. Intraoperative X-Ray 02/13/25 16:19 IMPRESSION: 1. Near-anatomic alignment post internal fixation of an intertrochanteric fracture the proximal right femur. See procedure note for further detail. Labs Labs: Laboratory Results - last 24 hr 02/19/25 05:43 WBC 7.8 RBC 3.24 L Hgb 9.5 L Hct 28.6 L MCV 88.3 MCH 29.3 MCHC 33.2 RDW 13.0 Plt Count 274 MPV 9.2 Immature Gran % (Auto) 1.7 H Neut % (Auto) 74.0 H Lymph % (Auto) 11.1 L [place] % (Auto) 9.4 H Eos % (Auto) 3.2 Baso % (Auto) 0.6 Lymph # (Auto) 0.86 L [place] # (Auto) 0.7 H Eos # (Auto) 0.3 Baso # (Auto) 0.1 Abs Immat Gran (auto) 0.13 H Absolute Neuts (auto) 5.8 Absolute Nucleated RBC 0.000 Nucleated RBC % 0.0 Sodium 140 Potassium 3.5 Chloride 110 H Carbon Dioxide 16 L Anion Gap 14 H BUN 4 L Creatinine 0.37 L Estim Creat Clear Calc 73 Estimated GFR > 60 Glucose 88 Calcium 9.0 Total Bilirubin 0.9 AST 43 H ALT 23 Alkaline Phosphatase 75 Total Protein 6.0 L Albumin 3.8 Quality VTE Prophylaxis VTE prophylaxis: mechanical ordered and pharmacologic ordered
--- NOTE | 2025-02-19 14:49 | P.DS_ITS ---
DS: Admitting Diagnosis Discharge Date 02/19/25 Admitting Diagnosis Closed intertrochanteric fracture of right femur DS: Discharge Diagnosis Discharge Diagnosis (1) Closed intertrochanteric fracture of right femur: Qualifiers: Encounter type: subsequent encounter Fracture alignment: nondisplaced Fracture healing: with routine healing Qualified Code(s): S72.144D - Nondisplaced intertrochanteric fracture of right femur, subsequent encounter for closed fracture with routine healing Code(s): S72.141A - Displaced intertrochanteric fracture of right femur, initial encounter for closed fracture Status: Acute (2) Dementia: Qualifiers: Alzheimer's disease onset: other onset Dementia behavioral or psychological symptom: with agitation Dementia severity: severe Dementia type: Alzheimer's Qualified Code(s): G30.8 - Other Alzheimer's disease; F02.C11 - Dementia in other diseases classified elsewhere, severe, with agitation Code(s): F03.90 - Unspecified dementia, unspecified severity, without behavioral disturbance, psychotic disturbance, mood disturbance, and anxiety Status: Acute (3) Normocytic anemia: Code(s): D64.9 - Anemia, unspecified Status: Chronic (4) Electrolyte abnormality: Code(s): E87.8 - Other disorders of electrolyte and fluid balance, not elsewhere classified Status: Acute Plan Diet: Regular, NPO at midnight GI Prophylaxis: Not currently indicated DVT Prophylaxis: SCDs IV fluids: None Lines/Tubes: Peripheral IV, Guallpa catheter Code Status: DNR DS: Summary Hospital Course Reason for hospitalization: Fall, Hip Pain Hospital Course: HPI obtained through EMS report, chart review and patient report as the patient has dementia and arrived A/Ox1. The patient reportedly fell last night, unclear etiology. She landed on her buttocks with a positive head strike and unknown if patient had loss of consciousness. The patient reports right hip pain post fall and has been on unable to ambulate since. She arrived to the emergency department with a small hematoma to the right side of her face and A&O x1. She is not currently on anticoagulation. Initial VS at presentation: 97.7? F, HR 62, R 16, 139/43, and 100% on RA. ED workup showed: No leukocytosis, hemoglobin 11.9, normal coags, no significant electrolyte derangements, creatinine 0.72 and GFR >60, UA showed trace ketones/trace leuks/3-[address] showed no acute intracranial findings. Cervical spine CT showed no acute osseous abnormality of the cervical spine and multilevel degenerative disc disease. Hip/pelvic XR showed a nondis placed right femoral intertrochanteric fracture.. Orthopedic was consulted regarding the closed intertrochanteric fracture right femur. This was repaired on 02/13/2025 without any complications. Patient continue work with PT/OT with some difficulty given underlying dementia diagnosis. I discussed with at length regarding benefit of long-term memory care facility after discharge and he agreed that this would be the best option, however the patient would require SNF placement before being placed in a memory care facility. Patient continue to work with PT/OT throughout her hospitalization with some difficulty given baseline dementia/difficulty following commands. Throughout the weekend, however, patient's appetite was severely decreased and patient continued to have difficulty following commands with nursing staff and PT/OT. GI was consulted regarding possible PEG tube placement verses appetite stimulant and the patient's family was vehemently against PEG tube placement and opted for hospice. Care coordination was consulted regarding hospice referral and [facility] was chosen by . Plan to discharge pt to hospice care at this time. Status at Discharge Overall status at discharge: patient is not back to baseline Time Spent with Patient Time attestation: Total time spent providing and/or coordinating discharge services: Exam Const: General: comfortable and no acute distress Other: , female, frail, nontoxic appearance HENMT: Face/Nose/Sinus: Normal nares present Mouth: Yes moist mucous membranes Eyes: General: appearance normal, both eyes and all related structures Sclera: sclerae normal Pupils: Equal, round and reactive pupils present EOM: EOMs intact bilaterally Resp: Effort & Inspection: normal respiratory effort Auscultation: clear to auscultation bilaterally Cardio: Rate: regular rate Rhythm: regular rhythm Other: S1-S2 present without murmur, rub, ectopy Skin: General skin exam: normal color and no rashes or lesions noted Wounds: no wounds Other: RLE: Dressing intact and dry Neuro: Cranial nerves: Yes Equal, round and reactive pupils present Other: A&O x1, moving all extremities Extrem: General: normal to inspection Other: DP pulses 2+ bilaterally, R hip dressing intact and dry Hip/thigh: Dressing clean and intact. Normal range of motion. Neurovascularly intact. Psych: Other: Baseline A&Ox1, difficulty following commands DS: Data Data Completed and Pending Labs on day of discharge: Labs from last 24 hours 02/19/25 05:43 WBC 7.8 RBC 3.24 L Hgb 9.5 L Hct 28.6 L MCV 88.3 MCH 29.3 MCHC 33.2 RDW 13.0 Plt Count 274 MPV 9.2 Immature Gran % (Auto) 1.7 H Neut % (Auto) 74.0 H Lymph % (Auto) 11.1 L [place] % (Auto) 9.4 H Eos % (Auto) 3.2 Baso % (Auto) 0.6 Lymph # (Auto) 0.86 L [place] # (Auto) 0.7 H Eos # (Auto) 0.3 Baso # (Auto) 0.1 Abs Immat Gran (auto) 0.13 H Absolute Neuts (auto) 5.8 Absolute Nucleated RBC 0.000 Nucleated RBC % 0.0 Sodium 140 Potassium 3.5 Chloride 110 H Carbon Dioxide 16 L Anion Gap 14 H BUN 4 L Creatinine 0.37 L Estim Creat Clear Calc 73 Estimated GFR > 60 Glucose 88 Calcium 9.0 Total Bilirubin 0.9 AST 43 H ALT 23 Alkaline Phosphatase 75 Total Protein 6.0 L Albumin 3.8 Discharge Plan Discharge Attending physician on discharge: Winter Wallace Consulting providers: Jaswant Blackwood Discharging Clinician: Serg Yañez Patient Disposition: [facility] Inpatient Activity: may shower, no driving and follow weight bearing status Diet: as tolerated Wound Care Instructions: follow printed instructions Discharge Instructions: Postoperative Hip Fracture Instructions Dr. Jaswant Blackwood [phone] * Dressing to be changed daily with an island dressing beginning on post op day #2. May stop dressing changes at post op day #14. No sutures/michael will need to be removed. Can allow Dermabond to fall off naturally. * Weight bearing: Weight bearing as tolerated. * You may shower with your dressing but do not submerge in a bath tub. * Do not drive or operate machinery until you are released by your surgeon. * Do not walk without a walker for any reason until you are released by your surgeon. * DVT prophylaxis x28 days post op. * Continue to apply ice to the hip intermittently for additional pain relief. Protect your skin with a towel or pillow case. * Continue to follow strict hip fracture precautions. * Please contact our office with any questions/concerns regarding your hip at [phone]. * Follow up appointment instructions indicated below. Patient Language: Niuean Follow-up/Referrals: Jaswant Blackwood MD [Physician] - 03/27/25 8:30 am Date of admission: 02/12/25 12:18 Primary Care Provider: Hunter,Gordo Guido Admitting Provider: Bk Castillo Attending physician on admission: Serg Yañez Condition: Stable Quality VTE Prophylaxis VTE prophylaxis: mechanical ordered and pharmacologic ordered
== END 2025-02-19 14:41 | disposition hospice, inpatient (51) | DRG 482 ==
LOC: ANHED 10:36 → ANH3MEDSUR 11:00
PROVIDERS: Orthopaedic Surgery; Student in an Organized Health Care Education/Training Program; Admitting Provider Internal Medicine; Emergency Provider Student in an Organized Health Care Education/Training Program; PCP Internal Medicine; Visit Provider Physician Assistant
PROC: 0QS636Z Reposition Right Upper Femur with Intramedullary Internal Fixation Device, Percutaneous Approach (ICD-10-PCS; CPT 27245; principal; 2025-02-13 13:30)
DX: S72.144A Nondisplaced intertrochanteric fracture of right femur, initial encounter for closed fracture (principal); G30.9 Alzheimer's disease, unspecified; F02.80 Dementia in other diseases classified elsewhere, unspecified severity, without behavioral disturbance, psychotic disturbance, mood disturbance, and anxiety; R63.4 Abnormal weight loss; D64.9 Anemia, unspecified; E87.8 Other disorders of electrolyte and fluid balance, not elsewhere classified; W19.XXXA Unspecified fall, initial encounter; Z85.038 Personal history of other malignant neoplasm of large intestine
CPT/HCPCS: 36415; 70450; 72125; 73521; 80048; 80053; 81001; 85025; 85027; 85610; 85730; 96374; 96375; 97116; 97162; 97166; 97530; 99199; 99285; A9270; C1713; G0378; J0690; J1652; J1885; J2003; J2060; J2270; J2405; J2704; J3010; J3480; J7030; J7040; J7120

== ENCOUNTER 2025-02-19 15:35 | HOS | payer OTHER, MEDICARE, SELFPAY ==
--- OUTSIDE RECORDS SUMMARY | 2025-02-19 15:00 | XMS_ITS | Clinical Summary ---
Author Organization [facility] Address [address] [place] [address] Care Team Providers Care Leak Inspector Name Role Phone Gordo Harrison MD Primary Care Provider Ghassan Viveros MD Unavailable [phone] Beck Gruber MD Unavailable [phone] Barry Rodriguez MD Unavailable [phone] Allergies No known active allergies Medications pravastatin [...] changes Assessment & Plan (10/26/2022 1:38 PM AGRICULTURAL PILOT): We will set the patient up for [...] meetings before with the genetic counselor in [place]. There is family history of RLS, including [...] (09/14/2022): Added automatically from request for surgery [id number] Immunizations Immunization Administration Dates Next Due Influenza, [...] Restless legs syndrome Father Riley Hypertension Mother Giselle Breast cancer Sister 1 tanya No Known Problems Sister 2 Yeimi Krabbe disease Son 1 brain No Known Problems Son 2 raegan Relation Name Status Comments Brother 1 Alive Brother 2 Alive Father Riley (Age 90) Mother Giselle Alive Sister 1 tanya Alive Sister 2 Yeimi Alive Son 1 brain Alive Son 2 [...] week 12/01/2022 How often do you attend mormonism or lutheran serv ices? 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 Not on file Not on file Obstetrics History Last Filed Vital Signs Vital Sign Reading Time Taken Comments Blood Pressure 147/60 08/26/2023 11:30 AM AGRICULTURAL PILOT Pulse 57 08/26/2023 11:30 AM AGRICULTURAL PILOT Temperature 37 C (98.6 F) 08/26/2023 11:30 AM AGRICULTURAL PILOT Respiratory Rate 20 08/26/2023 11:30 AM AGRICULTURAL PILOT Oxygen Saturation 100% 08/26/2023 11:30 AM AGRICULTURAL PILOT Inhaled Oxygen Concentration - - Weight 44.9 kg (99 lb) 08/26/2023 10:20 AM AGRICULTURAL PILOT Height 154.9 cm (5' 1) 08/26/2023 10:20 AM AGRICULTURAL PILOT Body Mass Index 18.71 08/26/2023 10:20 AM AGRICULTURAL PILOT Plan of Treatment Health Maintenance Due Date [...] 08/26/2023, 10/21/2022 Medical Devices Implanted Type Area Personnel Director Device Identifier Shelf Expiration Date Model / Serial / Lot [employer] Hem-O-Guille Ligate Nonabsorbable Cartridge Medium Large Latex Free [id number] - [id number] Implanted:Qty: 1 on 11/29/2022 by Adrien Hendrickson MD at [facility] N/A: Abdomen [employer] 08/23/2027 [id number] / / [id number] Description:2 clips implante d Procedures Procedure Name Priority Date/Time Associated Diagnosis Comments COLONOSCOPY 08/26/2023 10:11 AM AGRICULTURAL PILOT from Last 3 Months or Most Recently Relevant to Health Maintenance Results * COLONOSCOPY (08/26/2023 10:11 AM AGRICULTURAL PILOT) Anatomical Region Laterality Modality Other Narrative Procedure Note Ghassan Viveros MD - 08/26/2023 10:11 AM CST [facility] Patient Name: Carlos Hassan Procedure Date: 08/26/2023 10:11 AM Date of : 1945 Admit Type: Outpatient Age: 78 Gender: Female Attending MD: Ghassan Viveros M.D. Room: [facility] ENDOSCOPY ROOM 2 Note Status: [...] under direct vision. The Pediatric Colonoscope [id number]-[id number] was introducedthrough the anus and advanced to [...] malignant neoplasm of largeintestine CPT copyright 2020 [employer]. All rights reserved. The codes documented in this report are preliminary and upon inpatient coder reviewmay be revised to meet current compliance requirements. Recognized by the [employer] for promoting quality in endoscopy Ghassan Viveros MD ENDOSCOPY PROCEDURES Final Re sult from Last 3 Months or Most Recently Relevant to Health Maintenance Insurance T MEDICARE AET MEDICARE AETNA MEDICARE Advance Directives For more information, please contact: [phone] * Full Code (Latest Code Status on [...] 10:30 AM 10/21/2022 10:30 AM Care Teams Leak Inspector Relationship Specialty Start Date End Date Gordo Harrison MD [address] [place] [id number] PCP - General Internal Medicine 10/21/22 Ghassan Viveros MD [address] [place] [address] Consulting Physician Gastroenterology 10/27/22 Beck Gruber MD [address] [place] [address] Medical Oncologist/Hematologi Hematology and Oncology 12/23/22 Barry Rodriguez MD [address] [place] [address] Referring Physician Neurology 04/17/24
--- OUTSIDE RECORDS SUMMARY | 2025-02-19 15:00 | XMS_ITS | Referral Summary ---
Author Organization [facility] Address [address] [place] [address] Care Team Providers Care Developing Machine Tender Name Role Phone Gordo Harrison MD Primary Care Provider Ghassan Viveros MD Unavailable [phone] Beck Gruber MD Unavailable [phone] Barry Rodriguez MD Unavailable [phone] Allergies No known active allergies Medications pravastatin [...] changes Assessment & Plan (10/26/2022 1:38 PM GAS OPERATIONS ANALYST): We will set the patient up for [...] meetings before with the genetic counselor in [place]. There is family history of RLS, including [...] (09/14/2022): Added automatically from request for surgery [id number] Immunizations Immunization Administration Dates Next Due Influenza, [...] week 12/01/2022 How often do you attend gnosticism or pentecostal serv ices? 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 Not on file Not on file Last Filed Vital Signs Vital Sign Reading Time Taken Comments Blood Pressure 147/60 08/26/2023 11:30 AM GAS OPERATIONS ANALYST Pulse 57 08/26/2023 11:30 AM GAS OPERATIONS ANALYST Temperature 37 C (98.6 F) 08/26/2023 11:30 AM GAS OPERATIONS ANALYST Respiratory Rate 20 08/26/2023 11:30 AM GAS OPERATIONS ANALYST Oxygen Saturation 100% 08/26/2023 11:30 AM GAS OPERATIONS ANALYST Inhaled Oxygen Concentration - - Weight 44.9 kg (99 lb) 08/26/2023 10:20 AM GAS OPERATIONS ANALYST Height 154.9 cm (5' 1) 08/26/2023 10:20 AM GAS OPERATIONS ANALYST Body Mass Index 18.71 08/26/2023 10:20 AM GAS OPERATIONS ANALYST Plan of Treatment Not on file Medical Devices Implanted Type Area Pooling Operator Device Identifier Shelf Expiration Date Model / Serial / Lot [employer] Weck Hem-O-Guille Ligate Nonabsorbable Cartridge Medium Large Latex Free [id number] - [id number] Implanted:Qty: 1 on 11/29/2022 by Adrien Hendrickson MD at [facility] N/A: Abdomen [employer] 08/23/2027 [id number] / / [id number] Description:2 clips implante d Procedures Procedure Name Priority Date/Time Associated Diagnosis Comments COLONOSCOPY 08/26/2023 10:11 AM GAS OPERATIONS ANALYST from Last 3 Months or Most Recently Relevant to Health Maintenance Results * COLONOSCOPY (08/26/2023 10:11 AM GAS OPERATIONS ANALYST) Anatomical Region Laterality Modality Other Narrative Procedure Note Ghasasn Viveros MD - 08/26/2023 10:11 AM CST [facility] Patient Name: Carlos Hassan Procedure Date: 08/26/2023 10:11 AM Date of : 1945 Admit Type: Outpatient Age: 78 Gender: Female Attending MD: Ghassan Viveros M.D. Room: [facility] ROOM 2 Note Status: Finalized Patient [...] under direct vision. The Pediatric Colonoscope PCF-H190L [id number] was introducedthrough the anus and advanced to [...] malignant neoplasm of largeintestine CPT copyright 2020 [employer]. All rights reserved. The codes documented in this report are preliminary and upon medical/surgery registered nurse reviewmay be revised to meet current compliance requirements. Recognized by the [employer] for promoting quality in endoscopy Ghassan Viveros MD ENDOSCOPY PROCEDURES Final Re sult from Last 3 Months or Most Recently Relevant to Health Maintenance Insurance [facility] MEDICARE [employer] MEDICARE AETNA MEDICARE Advance Directives For more information, please contact: [phone] * Full Code (Latest Code Status on [...] 10:30 AM 10/21/2022 10:30 AM Care Teams Developing Machine Tender Relationship Specialty Start Date End Date Gordo Harrison MD [address] [place] [id number] PCP - General Internal Medicine 10/21/22 Ghassan Viveros MD [address] [place] [address] [address] [place] [address] Consulting Physician Gastroenterology 10/27/22 Beck Gruber MD [address] [place] [address] [place] [address] Medical Oncologist/Hematologi Hematology and Oncology 12/23/22 Brary Rodriguez MD [address] [place] [address] Referring Physician Neurology 04/17/24
--- OUTSIDE RECORDS SUMMARY | 2025-02-19 15:00 | XMS_ITS | Clinical Summary ---
Author Organization [facility] Address [address] [place] [address] Care Team Providers Care Telemetry Monitor Name Role Phone Gordo Harrison MD Primary Care Provider Source Comments [facility],non-owned Affiliates and Associated Physician Practices is amultiple site organization consisting of ambulatory clinics and hospital sitesin [place], [place], [place] and [place]. This disclosure is being madepursuant to the Care Everywhere program and may not contain all information available regarding this patient. Last updated 18.[facility] [place] [employer] Social History Tobacco Use Types Packs/Day Years Used Date Smoking Tobacco: Never Assessed Comments Unknown Sex and Gender Information Value Date Recorded Sex Assigned at Not on file Legal Sex Female 8:18 AM AGRICULTURE INSTRUCTOR Gender Identity Female 11/10/2023 8:31 AM AGRICULTURE INSTRUCTOR Sexual Orientation Straight 11/10/2023 8: 31 AM AGRICULTURE INSTRUCTOR Plan of Treatment Health Maintenance Due Date [...] MEDICARE ADV AETNA MEDICARE ADV Care Teams Telemetry Monitor Relationship Specialty Start Date End Date Harrison, Gordo T, MD [address] [id number] [address] [place] [address] PCP - General Internal Medicine 11/10/23
[2025-02-19 15:34] VITALS: PULSE 85; O2SAT 97
[2025-02-19 16:00] VITALS: BMI 21.3
--- OUTSIDE RECORDS SUMMARY | 2025-02-19 16:07 | XMS_ITS | Data Portability ---
Author Organization [facility], Main Office Address [address] [place] [address] Assessment No assessment recorded. Plan of Treatment Reminders Order Date Submit Date Provider Last Modified By Organization Details Last Modified Time Details Appointments None recorded. Lab vitamin B12, serum [email or web address] [place] [address] Outpatient Lab, [address] [place], [address], 4 10:01:03 CBC w/ auto diff [email or web address] [place] [address] - Outpatient Lab, [address] [place], [address], 4 10:01:02 CMP, serum or plasma [email or web address] [place] [address] Outpatient Lab, [address] [place], [address], 4 10:01:03 lipid panel, serum [email or web address] [place] [address] Outpatient Lab, [address] [place], [address], 4 10:01:03 TSH, serum or plasma [email or web address] [place] [address] Outpatient Lab, [address] [place], [address], 4 10:01:03 T4, free, serum [email or web address] [place] [address] Outpatient Lab, [address] [place], [address], 4 10:01:03 pancreatic elastase, stool [id number] Outpatient Lab, [address] [place], [address], 4 16:31:19 fecal fat, quantitati ve, 72-hour stool [id number] Outpatient Lab, [address] [place], [address], 4 16:31:19 TSH, serum or plasma 2023 024 [facility] Outpatient Lab, [address] [place], [address], 4 17:40:50 TSH + free T4, serum [email or web address] Outpatient Lab, [address] [place], [address], 4 16:31:19 T3, free, serum or plasma 2023 024 [facility] Outpatient Lab, [address] [place], [address], 4 17:19:32 CBC w/ auto diff 2023 024 [facility] Outpatient Lab, [address] [place], [address], 4 12:57:09 CMP, serum or plasma 2023 024 [facility] Outpatient Lab, [address] [place], [address], 4 13:23:29 lipid panel, serum 2023 024 [facility] Outpatient Lab, [address] [place], [address], 13:23:32 TSH, serum or plasma 2023 [facility] Outpatient Lab, [address] [place], [address], 14:39:30 T4, free, serum 2023 [facility] Outpatient Lab, [address] [place], [address], 14:23:21 Referral None recorded. Procedures None recorded. Surgeries None recorded. Imaging None recorded. Medication Orders Remeron 15 mg tablet 2023 [id number], [address] [place], [address], 17:36:02 Patient TargetsNo targets recorded. Patient Instructions Encounter Date Encounter Id Patient Instructions Last Modified By Organization Details Last Modified Time 11/29/2023 [id number] dementia rating scale-2* [email or web address] Not available 11/29/2023 14:52:35 alcohol misuse* [email or web address] Not available 11/29/2023 14:52:35 depression screening* [email or web address] Not available 11/29/2023 14:52:35 multi-dimensiona l health assessment questionnaire* [email or web address] Not available 11/29/2023 14:52:34 Personalized [facility] Plan and Screening Recommendations Advance Directives - [...] Physical activity: Need more exercise/physical activity Nutrition: Average Refer to attached handout Heart-Healthy Diet: After Your Visit Refer to attached handout DASH Diet: After Your Visit Recommend consultation with a claims examiner Eat heart healthy diet Fall Risk (screened today): Low Vaccines Pneumococcal: No further needed Influenza: Your next one in the fall of this year Chronic Disease Risks Stroke: Intermediate Risk Active diagnosis, Continue current treatment plan Heart Attack: Intermediate Risk Active diagnosis, Continue current treatment plan Clogging of the Arteries: Intermediate Risk Active diagnosis, Continue current treatment plan Diabetes: Low Risk I have no recommendations Secondary Prevention/Intervent ion (detects treatable diseases before they may cause symptoms, disability, or ) Breast Cancer Screening with mammogram: Recommended today, but you have declined Cervical/Uterine/Ova lupillo Cancer Screening: No screening necessary Osteoporosis Screening: Recommended today Date Screening Last Performed: Colon Cancer Screening: Colonoscopy In: Ordered Recommen ded Recommended today, but you have declined No screening necessary due 2025 Date Screening Last Performed: __2022___ Eye Disease Screening: Ordered Recommended today Recommended today, but you have declined No Eye exam necessary Your next exam in: goes every 2 yrs Dementia Risk: Low I have no recommendations Depression Screening: Negative Recommend additional evaluation and/or treatment as noted above Recommend follow appointment to further evaluate Recommend Behavioral Health referral Active diagnosis, Continue current treatment plan I have no recommendations [email or web address] Not available 11/29/2023 14:42:21 Medicare [facility] evaluation risk assessment stable. Follow-up for [...] where substitutions have occurred. Bone density scan [email or web address] Not available 11/29/2023 14:52:15 05/10/2024 [id number] Follow-up were weight loss etiology which is [...] recognize, using context, where substitutions have occurred. 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 [email or web address] Not available 06/12/2024 14:35:29 07/24/2024 [id number] Advancing ingrid ia, essential hypertension, hyperlipidemia and [...] recognize, using context, where substitutions have occurred. Not available 07/24/2024 15:17:19 09/04/2024 [id number] Follow-up essent ial hypertension, hyperlipidemia as well [...] Created: Gordo Harrison M.D. 09.04.2024 01:56 PM [email or web address] Not available 09/04/2024 14:56:59 Reason for Referral None Reported. Results Created Date Observation Date Name Description Value Unit Range Abnormal Flag Note LastModifiedBy Organization Detail LastModifiedTime 12/01/19 24 12/01/2023 CBC/C OMPLE TE BLD COUNT W/DIF F white blood cells 6.6 x10'3 /uL 4.2-10 .8 Not Available [facility] (Lab) [address] [place], [address], 12/01/2023 12:57:09 12/01/19 24 12/01/2023 CBC/C OMPLE TE BLD COUNT W/DIF F red blood cells 4.30 x10'6 /uL 3.80-5 .20 Not Available [facility] (Lab) [address] [place], [address], 12/01/2023 12:57:09 12/01/19 24 12/01/2023 CBC/C OMPLE TE BLD COUNT W/DIF F hemoglobin 13.0 g/dL 12.0-1 5.6 Not Available [facility] (Lab) [address] [place], [address], 12/01/2023 12:57:09 12/01/19 24 12/01/2023 CBC/C OMPLE TE BLD COUNT W/DIF F hematocrit 39.8 % 35.7-4 5.7 Not Available [facility] (Lab) [address] [place], [address], 12/01/2023 12:57:09 12/01/19 24 12/01/2023 CBC/C OMPLE TE BLD COUNT W/DIF F mean red cell volume 92.6 fL 82.0-9 9.0 Not Available [facility] (Lab) [address] [place], [address], 12/01/2023 12:57:09 12/01/19 24 12/01/2023 CBC/C OMPLE TE BLD COUNT W/DIF F mean red cell hemoglobin 30.2 pg 27.0-3 3.0 Not Available [facility] (Lab) [address] [place], [address], 12/01/2023 12:57:09 12/01/19 24 12/01/2023 CBC/C OMPLE TE BLD COUNT W/DIF F mean RBC HGB concentratio n 32.7 g/dL 31.0-3 6.0 Not Available [facility] (Lab) [address] [place], [address], 12/01/2023 12:57:09 12/01/19 24 12/01/2023 CBC/C OMPLE TE BLD COUNT W/DIF F red cell distribution width 13.0 % 11.8-1 5.5 Not Available [facility] (Lab) [address] [place], [address], 12/01/2023 12:57:09 12/01/19 24 12/01/2023 CBC/C OMPLE TE BLD COUNT W/DIF F platelets 220 x10'3 /uL 150-40 0 Not Available [facility] (Lab) [address] [place], [address], 12/01/2023 12:57:09 12/01/19 24 12/01/2023 CBC/C OMPLE TE BLD COUNT W/DIF F mean platelet volume 10.1 fL 9.0-12 .4 Not Available [facility] (Lab) [address] [place], [address], 12/01/2023 12:57:09 12/01/19 24 12/01/2023 CBC/C OMPLE TE BLD COUNT W/DIF F neutrophils 71.8 % 39.0-7 2.0 Not Available [facility] (Lab) [address] [place], [address], 12/01/2023 12:57:09 12/01/19 24 12/01/2023 CBC/C OMPLE TE BLD COUNT W/DIF F lymphocytes 18.9 % 16.0-4 7.0 Not Available [facility] (Lab) [address] [place], [address], 12/01/2023 12:57:09 12/01/19 24 12/01/2023 CBC/C OMPLE TE BLD COUNT W/DIF F monocytes 7.0 % 5.0-12 .0 Not Available [facility] (Lab) [address] [place], [address], 12/01/2023 12:57:09 12/01/19 24 12/01/2023 CBC/C OMPLE TE BLD COUNT W/DIF F eosinophils 1.5 % 1.0-7. 0 Not Available [facility] (Lab) [address] [place], [address], 12/01/2023 12:57:09 12/01/19 24 12/01/2023 CBC/C OMPLE TE BLD COUNT W/DIF F basophils 0.5 % 0.0-2. 0 Not Available [facility] (Lab) [address] [place], [address], 12/01/2023 12:57:09 12/01/19 24 12/01/2023 CBC/C OMPLE TE BLD COUNT W/DIF F immature granulocytes 0.3 % 0.00-0 .50 Not Available [facility] (Lab) [address] [place], [address], 12/01/2023 12:57:09 12/01/19 24 12/01/2023 CBC/C OMPLE TE BLD COUNT W/DIF F neutrophils, absolute count 4.70 x10'3 /uL 1.5-8. 0 Not Available [facility] (Lab) [address] [place], [address], 12/01/2023 12:57:09 12/01/19 24 12/01/2023 CBC/C OMPLE TE BLD COUNT W/DIF F lymphocytes, absolute count 1.24 x10'3 /uL 1.07-3 .43 Not Available [facility] (Lab) [address] [place], [address], 12/01/2023 12:57:09 12/01/19 24 12/01/2023 CBC/C OMPLE TE BLD COUNT W/DIF F monocytes, absolute count 0.46 x10'3 /uL 0.29-0 .99 Not Available [facility] (Lab) [address] [place], [address], 12/01/2023 12:57:09 12/01/19 24 12/01/2023 CBC/C OMPLE TE BLD COUNT W/DIF F eosinophils, absolute count 0.10 x10'3 /uL 0.02-0 .53 Not Available [facility] (Lab) [address] [place], [address], 12/01/2023 12:57:09 12/01/19 24 12/01/2023 CBC/C OMPLE TE BLD COUNT W/DIF F basophils, absolute count 0.03 x10'3 /uL 0.01-0 .08 Not Available [facility] (Lab) [address] [place], [address], 12/01/2023 12:57:09 12/01/19 24 12/01/2023 CBC/C OMPLE TE BLD COUNT W/DIF F immature granulocytes ,absolute 0.02 x10'3 /uL 0.00-0 .05 Not Available [facility] (Lab) [address] [place], [address], 12/01/2023 12:57:09 12/01/19 24 12/01/2023 CBC/C OMPLE TE BLD COUNT W/DIF F nucleated red blood cells 0.0 % -0 Not Available [facility] (Lab) [address] [place], [address], 12/01/2023 12:57:09 12/01/19 24 12/01/2023 CBC/C OMPLE TE BLD COUNT W/DIF F NRBC# 0.00 x10'3 /uL Not Available [facility] (Lab) [address] [place], [address], 12/01/2023 12:57:09 12/01/19 24 12/01/2023 COMPR EHENS DILAN METAB OLIC PANEL sodium 138 mmol/ L 137-14 5 Not Available [facility] (Lab) [address] [place], [address], 12/01/2023 13:23:29 12/01/19 24 12/01/2023 COMPR EHENS DILAN METAB OLIC PANEL potassium 4.0 mmol/ L 3.5-5. 1 Not Available [facility] (Lab) [address] [place], [address], 12/01/2023 13:23:29 12/01/19 24 12/01/2023 COMPR EHENS DILAN METAB OLIC PANEL chloride 104 mmol/ L 98-107 Not Available [facility] (Lab) [address] [place], [address], 12/01/2023 13:23:29 12/01/19 24 12/01/2023 COMPR EHENS DILAN METAB OLIC PANEL carbon dioxide 32 mmol/ L 22-30 high Not Available [facility] (Lab) [address] [place], [address], 12/01/2023 13:23:29 12/01/19 24 12/01/2023 COMPR EHENS DILAN METAB OLIC PANEL anion gap 6.0 mmol/ L 14-22 low Not Available [facility] (Lab) [address] [place], [address], 12/01/2023 13:23:29 12/01/19 24 12/01/2023 COMPR EHENS DILAN METAB OLIC PANEL glucose 90 mg/dL 70-99 Not Available [facility] (Lab) [address] [place], [address], 12/01/2023 13:23:29 12/01/19 24 12/01/2023 COMPR EHENS DILAN METAB OLIC PANEL BUN 17 mg/dL 8-19 Not Available [facility] (Lab) [address] [place], [address], 12/01/2023 13:23:29 12/01/19 24 12/01/2023 COMPR EHENS DILAN METAB OLIC PANEL creatinine 0.63 mg/dL 0.66-1 .25 low Not Available [facility] (Lab) [address] [place], [address], 12/01/2023 13:23:29 12/01/19 24 12/01/2023 COMPR EHENS DILAN METAB OLIC PANEL GFR >60 Refer ence Range : [place] ge GFR Healt hy Adult : >60 [...] calcu lator is avail able on the [facility] websi te: [email or web address] :[email or web address] rg/pr ofess ional [email or web address]/kdo qi/gf r_cal culat or Not Available [facility] (Lab) [address] [place], [address], 12/01/2023 13:23:29 12/01/19 24 12/01/2023 COMPR EHENS DILAN METAB OLIC PANEL alkaline phosphatase 64 U/L 38-126 Not Available [facility] (Lab) [address] [place], [address], 12/01/2023 13:23:29 12/01/19 24 12/01/2023 COMPR EHENS DILAN METAB OLIC PANEL alanine aminotransfe rase 16 U/L 0-35 Not Available [facility] (Lab) [address] [place], [address], 12/01/2023 13:23:29 12/01/19 24 12/01/2023 COMPR EHENS DILAN METAB OLIC PANEL aspartate aminotransfe rase 30 U/L 15-37 Not Available [facility] (Lab) [address] [place], [address], 12/01/2023 13:23:29 12/01/19 24 12/01/2023 COMPR EHENS DILAN METAB OLIC PANEL bilirubin, total 0.60 mg/dL 0.20-1 .30 Not Available [facility] (Lab) [address] [place], [address], 12/01/2023 13:23:29 12/01/19 24 12/01/2023 COMPR EHENS DILAN METAB OLIC PANEL calcium 9.7 mg/dL 8.4-10 .2 Not Available [facility] (Lab) [address] [place], [address], 12/01/2023 13:23:29 12/01/19 24 12/01/2023 COMPR EHENS DILAN METAB OLIC PANEL total protein 6.9 g/dL 6.3-8. 2 Not Available [facility] (Lab) [address] [place], [address], 12/01/2023 13:23:29 12/01/19 24 12/01/2023 COMPR EHENS DILAN METAB OLIC PANEL albumin 4.5 g/dL 3.0-4. 4 high Not Available [facility] (Lab) [address] [place], [address], 12/01/2023 13:23:29 12/01/19 24 12/01/2023 COMPR EHENS DILAN METAB OLIC PANEL globulin 2.4 g/dL 2.6-4. 2 low Not Available [facility] (Lab) [address] [place], [address], 12/01/2023 13:23:29 12/01/19 24 12/01/2023 COMPR EHENS DILAN METAB OLIC PANEL A/G ratio 1.9 ratio 1.0-2. 0 Not Available [facility] (Lab) [address] [place], [address], 12/01/2023 13:23:29 12/01/19 24 12/01/2023 LIPID PANEL cholesterol 215 mg/dL 140-19 9 high NIH BHARATHI NSUS RECOM MENDA TION FOR PALAK STERO L: ADULT CHILD LOW RISK: <200 <170 BORDE RLINE : <200- 239 ----- HIGH RISK: >240 >200 Not Available [facility] (Lab) [address] [place], [address], 12/01/2023 13:23:32 12/01/19 24 12/01/2023 LIPID PANEL triglyceride s 89 mg/dL 0-150 NIH BHARATHI NSUS REPOR T RECOM MENDA TION FOR TRIGL YCERI MINA: ADULT CHILD LOW RISK: <150 ----- BODER LINE: 150-1 99 ----- HIGH RISK: >200 ----- Not Available [facility] (Lab) [address] [place], [address], 12/01/2023 13:23:32 12/01/19 24 12/01/2023 LIPID PANEL HDL cholesterol 107 mg/dL 40- Not Available [facility] (Lab) [address] [place], [address], 12/01/2023 13:23:32 12/01/19 24 12/01/2023 LIPID PANEL [...] WILL NOT BE REPOR FAUSTO. Not Available [facility] (Lab) [address] [place], [address], 12/01/2023 13:23:32 12/01/19 24 12/01/2023 T4 FREE free T4 0.82 NG/dL 0.78-2 .19 Not Available [facility] (Lab) [address] [place], [address], 12/01/2023 14:23:21 12/01/19 24 12/01/2023 TSH thyroid-stim ulating hormone 2.640 uIU/m L 0.465- 4.680 Not Available [facility] (Lab) [address] [place], [address], 12/01/2023 14:39:30 05/17/20 24 05/17/2024 T3 FREE free T3 2.5 pg/mL 2.77-5 .27 low Not Available [facility] (Lab) [address] [place], [address], 05/17/2024 17:19:32 05/17/20 24 05/17/2024 TSH thyroid-stim ulating hormone 1.690 uIU/m L 0.465- 4.680 Not Available [facility] (Lab) [address] [place], [address], 05/17/2024 17:40:50 05/17/20 24 05/21/2024 PANCR EATIC ELAST ASE, FECAL pancreatic elastase, fecal >800 ug_el ast./ g >200 Sever e Pancr eatic Insuf ficie ncy: <100 Moder ate Pancr eatic Insuf ficie ncy: 100 - 200 Bernice l: >200 Perfo rmed at: [facility] [place] [address] [facility] , [place] [address] Lab Direc tor: Lenora josue MD, Phone : [phone] Not Available [facility] (Lab) [address] [place], [address], 05/21/2024 03:35:44 05/17/20 24 05/21/2024 T4 FREE free T4 1.01 NG/dL 0.78-2 .19 Not Available [facility] (Lab) [address] [place], [address], 05/21/2024 21:09:45 05/17/20 24 05/22/2024 FECAL FAT, QUANT ITATI VE fecal weight, total TNP g Test not perfo rmed. The requi red speci men for the test order ed was not recei micaela. CONTA CT:LI SA NEMEI ER 2023 Not Available [facility] (Lab) [address] [place], [address], 05/22/2024 17:09:50 05/17/20 24 05/22/2024 FECAL FAT, QUANT ITATI VE fecal lipids, quantitative TNP Test not perfo rmed Perfo rmed at: [facility] [place] [address] , [place] [address] Lab Direc tor: Lenora josue MD, Phone : [phone] Not Available [facility] (Lab) [address] [place], [address], 05/22/2024 17:09:50 11/21/19 24 08/26/2023 colon oscop y proce dure (PROC ) No observ ation record ed. [email or web address] Not Available 2023 09:55:13 11/21/19 24 colon oscop y proce dure (PROC ) No observ ation record ed. [email or web address] Not Available 2023 09:55:13 12/01/19 24 DEXA, axial skele ton [facility] [address] [place] [address] Patien t Name: MANOLO HASSAN [facility] ion #: [id number] Sex: F : 1944 4 Dictat ed By: Renetta Larson Attend ing Physic chidi: CYNTHIA HARRISON CE [facility] Physic chidi: CYNTHIA HARRISON CE Exam Date: [...] ------ ------ ------ ------ ------ ----- *FRAX versmiguel n 3.08. Fractu re probab ility calcul [...] WHO criter ia. -1.0: normal Page 1 [facility] [place] [address] Patien t Name: MANOLO HASSAN Access ion #: [id number] Sex: F : 1944 4 Dictat ed By: Renetta Larson Attend ing Physic chidi: JEREMIAH DIXON Physic chidi: CYNTHIA HARRISON Exam Date: 2023 [...] at 2023 11:09: 52 AM Page [email or web address] [place] [address] (Imaging) [address] [facility], [place], [address], 12/01/2023 14:01:33 12/01/19 24 12/01/2023 DEXA No observ ation record ed. [email or web address] [facility] [address] [facility], [place], [address], 12/01/2023 14:01:28 12/08/19 24 12/08/2023 [email or web address] nuous EEG monit oring , profe ssion al compo nent; 12-26 hrs, with VEEG (PROC ) No observ ation record ed. [email or web address] [id number] [address] [facility], [place], [address], 12/08/2023 16:46:29 02/14/20 25 02/13/2025 XR, hip, bilat eral No observ ation record ed. [facility] [address] [facility] [address], [place], [address], 02/14/2025 08:12:40 Result Notes None recorded. Problems Name Problem SNOMED Code Status Onset Date Resolution Date Notes Provider Name and Address Organization Details Recorded Time Disorder of shoulder 318085658 Active Not Available [facility] 3 08:48:03 Family history of diabetes mellitus 165090148 Active 2016 Not Available [facility] 3 08:48:03 Pain in throat 896723194 Completed Not Available [facility] 3 08:48:03 Fibromyalg ia 669939721 Active Not Available [facility] 3 08:48:03 Menopausal symptom 80511602 Active 2017 Not Available [facility] 3 08:48:03 Sciatica 59461266 Active Not Available [facility] 3 08:48:03 Fluid level behind tympanic membrane Completed Not Available [facility] 3 08:48:03 Menopause present 797399295 Active Not Available [facility] 3 08:48:03 Osteopenia 562052351 Active 2017 Not Available [facility] 3 08:48:04 Blood in urine 12583686 Completed Not Available [facility] 3 08:48:04 Vitamin D deficiency 70547474 Active 2019 Not Available [facility] 3 08:48:04 Strain of neck muscle 448282782 Active 2020 Not Available [facility] 3 08:48:04 Inflammato ry disorder of extremity 625302551 Active Not Available [facility] 3 08:48:04 Sinusitis 64559578 Completed Not Available [facility] 3 08:48:04 Neuropathy 064615239 Active Not Available [facility] 3 08:48:04 Fever 642153902 Completed Not Available [facility] 3 08:48:04 Osteoarthr itis 307530324 Active Not Available [facility] 3 08:48:05 Pain of shoulder region 06457761 Active Not Available [facility] 3 08:48:05 Upper respirator y infection 96905955 Completed Not Available [facility] 3 08:48:05 Hyperlipid emia 80012843 Active Not Available [facility] 3 08:48:05 Disorder of bursa of shoulder region 38257869 Active Not Available [facility] 3 08:48:05 Essential hypertensi on 28043903 Active 2019 Not Available [facility] 3 08:48:05 Colorectal cancer detected by DNA-based stool screening 144194015 Active 2021 Not Available [facility] 3 08:48:05 Posterior rhinorrhea 61553055 Active Not Available [facility] 3 08:48:06 Fatigue 79207303 Active Not Available [facility] 3 08:48:06 Pain in limb 87521368 Active Not Available [facility] 3 08:48:06 Mild neurocogni tive disorder 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 2022 Gorod Harrison MD [address] [place] [address], [place] [address], [place], [address] , [facility] 3 11:38:03 Carcinoma of colon 108659122 Active 2022 Gordo Harrison MD [address], [facility] [address], [place], [address] , [facility] 3 11:39:16 Impaired cognition 538803976 Active 2022 Dominique Piper null, [facility] 3 12:12:23 Depressive disorder 50795022 Active 2023 Gordo Harrison MD [address], [facility] [address], [place], [address] , [facility] 4 14:47:16 Senile osteoporos is 88361801 Active 2023 Ruth Peter null, [facility] 4 15:04:25 Osteoporos is 12171735 Active 2023 Soo Cespedes CMA null, [facility] 4 16:21:40 Abnormal weight 20606103 Active 2023 RIO Garcia null, [facility] 4 16:26:45 Weight loss 38734699 Active 2023 Dominique Piper null, [facility] 4 15:43:17 Dementia 78648408 Active 2023 Gordo Harrison MD [address], [facility] [address], [place], [address] , [facility] 4 15:12:21 Problem Notes None recorded. Procedures Surgical History Date Name Laterality Status Provider Name and Address Organization Details Recorded Time 11/29/19 24 Medicare Wellness CPT Code, subsequent completed Sarah Giordano RN [facility] 11/29/2023 14:35:44 10/21/19 23 Date of Last Colonoscopy completed Not Available [facility] 11/24/2022 08:43:41 04/08/20 22 Most Recent Mammogram completed Not Available [facility] 11/24/2022 08:43:41 12/08/19 19 Most Recent Bone Density completed Not Available [facility] 11/24/2022 08:43:41 08/26/20 15 colonoscopy completed Not Available [facility] 11/25/19 08:43:42 02/25/20 02 endometrial biopsy completed Not Available [facility] 11/24/2022 08:43:42 12/26/19 02 colonoscopy completed Not Available [facility] 11/25/19 08:43:42 Imaging Results None recorded. Procedure Notes None recorded. Medical Equipment None [...] Available Not Available Not Avai lable Fluzone 8341-6609 45 mcg (15 mcg x 3)/0.5 mL intramuscul ar suspension TO BE ADMINISTE RED BY PHARMACIS T FOR IMMUNIZAT ION active Not Available Not Available No t Available Afluria 7409-7897(P F) 45 mcg (15 mcg x 3)/0.5 mL intramuscul ar syringe TO BE ADMINISTE RED BY PHARMACIS T FOR IMMUNIZAT ION active Not Available Not Available No t Available Fluvirin (PF) 45 mcg(15 mcg x3)/0.5 mL intramuscul ar syringe 10/07 completed Not Available Not Available Not Available Fluzone High-Dose Quad (PF) 240 mcg/0.7 mL IM syringe 08/12 completed Not Available Not Available Not Available Vitals Date Recorded Body height Body mass index (BMI) Body weight Heart rate Body temperature Oxygen saturation Oxygen saturation in Arterial blood by Pulse oximetry Systolic And Diastolic Provider Name and Address Organization Details Last Updated DateTime 4 156.21 cm 20.1 kg/m2 28006.9 8 g 58 /min 97 [degF] 98 % 98 % 108/60 mm[Hg] Ruth Peter [facility] 4 14:27:50 Date Recorded Body height Body mass index (BMI) Body weight Heart rate Body temperature Oxygen saturation Oxygen saturation in Arterial blood by Pulse oximetry Systolic And Diastolic Provider Name and Address Organization Details Last Updated DateTime 4 156.21 cm 16.5 kg/m2 31061.7 2 g 60 /min 97.6 [degF] 98 % 98 % 128/72 mm[Hg] RIO Garcia [facility] 4 16:32:23 Date Recorded Body height Body mass index (BMI) Body weight Heart rate Body temperature Oxygen saturation Oxygen saturation in Arterial blood by Pulse oximetry Systolic And Diastolic Provider Name and Address Organization Details Last Updated DateTime 4 156.21 cm 16.5 kg/m2 07454.9 2 g 63 /min 97.8 [degF] 97 % 97 % 110/70 mm[Hg] RIO Garcia [facility] 4 14:23:05 Date Recorded Body height Body mass index (BMI) Body weight Heart rate Body temperature Oxygen saturation Oxygen saturation in Arterial blood by Pulse oximetry Systolic And Diastolic Provider Name and Address Organization Details Last Updated DateTime 4 156.21 cm 17.9 kg/m2 15725.6 6 g 55 /min 97 [degF] 98 % 98 % 120/64 mm[Hg] Ruth Peter [facility] 4 14:58:55 Date Recorded Body height Body mass index (BMI) Body weight Heart rate Body temperature Oxygen saturation Oxygen saturation in Arterial blood by Pulse oximetry Systolic And Diastolic Provider Name and Address Organization Details Last Updated DateTime 4 156.21 cm 17.5 kg/m2 90354.6 8 g 68 /min 97 [degF] 98 % 98 % 100/64 mm[Hg] Maricarmen Hummel AMANDAJoseph [facility] 4 14:38:20 Social History Question Answer Notes LastModified by Organizat ion Details LastModified Time Tobacco Smoking Status Former Smoker quit in 1970 Not Available [facility] 11/24/2022 08:43:25 Do You Have An Advance Directive? Yes MIGRATION.16419 [id number] Information not available 11/24/2022 Are You Blind Or Do You Have Difficulty Seeing? No MIGRATION.71582 61717 Information not available 11/24/2022 What Is Your Level Of Caffeine Consumption? Moderate MIGRATION.71466 38237 Information not available 11/24/2022 How Much Tobacco Do You Chew? None MIGRATION.20980 07660 Information not available 11/24/2022 In The 14 Days Before Symptom Onset, Have You Had Close Contact With A Laboratory-confi rmed COVID-19 While That Case Was Ill? No MIGRATION.83681 23632 Information not available 11/24/2022 In The 14 Days Before Symptom Onset, Have You Had Close Contact With A Person Who Is Under Investigation For COVID-19 While That Person Was Ill? No MIGRATION.29471 73643 Information not available 11/24/2022 Are You Deaf Or Do You Have Serious Difficulty Hearing? No MIGRATION.68354 81652 Information not available 11/24/2022 What Type Of Diet Are You Following? REGULAR MIGRATION.08076 29951 Information not available 11/24/2022 Which Illicit Or Recreational Drugs Have You Used? None MIGRATION.48961 61652 Information not available 11/24/2022 What Is The Highest Grade Or Level Of School You Have Completed Or The Highest Degree You Have Received? [id number] 2 Years MIGRATION.28505 63265 Information not available 11/24/2022 Have There Been Any Changes To Your Family Or Social Situation? No MIGRATION.79327 67812 Information not available 11/24/2022 What Is The Fluoride Status Of Your Home? Unknown MIGRATION.86561 59441 Information not available 11/24/2022 Do You Use Insect Repellent Routinely? Yes MIGRATION.73321 81994 Information not available 11/24/2022 Where Do You Live? [facility] [email or web address] Information not available 11/29/2023 Are You Able To Care For Yourself? Yes [email or web address] Information not available 11/29/2023 Are You Blind Or Do Yo Have Difficulty Seeing? No [email or web address] Information not available 11/29/2023 Are You Deaf Or Do You Have Serious Difficulty Hearing? No [email or web address] Information not available 11/29/2023 Live Alone Of With Others? With Others [email or web address] Information not available 11/29/2023 Do You Have A Medical Power Of Strip Picker? Yes [email or web address] Information not available 11/29/2023 What Was The Date Of Your Most Recent Tobacco Screening? 11/29/2023 [email or web address] Information not available 11/29/2023 Do You Have Any Pets? No [email or web address] Information not available 11/29/2023 What Is Your Relationship Status? MIGRATION.64580 93030 Information not available 11/24/2022 Do You Use Your Seat Belt Or Car Seat Routinely? Yes MIGRATION.13676 71452 Information not available 11/24/2022 Do You Have Smoke And Carbon Monoxide Detectors In Your Home? Yes MIGRATION.28923 38514 Information not available 11/24/2022 At What Age Did You Start Smoking Tobacco? 20 MIGRATION.97199 10249 Information not available 11/24/2022 Do You Participate In Social Media? Yes MIGRATION.66296 17362 Information not available 11/24/2022 Do You Use Sunscreen Routinely? Yes MIGRATION.16468 97209 Information not available 11/24/2022 Has Tobacco Cessation Counseling Been Provided? No MIGRATION.78527 50800 Information not available 11/24/2022 Do You Have Difficulty Walking Or Climbing Stairs? No MIGRATION.03614 30790 Information not available 11/24/2022 Are You Currently In School? No MIGRATION.06477 21109 Information not available 11/24/2022 Do You Have Any Dietary Restrictions? No MIGRATION.65604 06322 Information not available 11/24/2022 Sex: Female Functional Status Question Answer Note LastModified by Organizat ion Details LastModified Time What is your level of alcohol consumption? Occasional MIGRATION.599733 8871 Information not available 11/24/2022 Do you have transportation difficulties? No MIGRATION.784504 7922 Information not available 11/24/2022 Are you able to walk? YESWOREST MIGRATION.463727 6866 Information not available 11/24/2022 Do you have difficulty doing errands alone? No MIGRATION.910030 7073 Information not available 11/24/2022 Are you able to care for yourself? 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 No MIGRATION.851539 1537 Information not available 11/24/2022 Do you or have you ever used e-cigarettes or vape? Never used electronic cigarettes MIGRATION.759553 1271 Information not available 11/24/2022 What is your exercise level? Moderate walks MIGRATION.526291 9712 Information not available 11/24/2022 Mental Status Question Answer Note LastModified by Organizat ion Details LastModified Time Do you feel stressed (tense, restless, nervous, or anxious, or unable to sleep at night)? [id number] MIGRATION.96587157 26 Information not available 11/24/2022 Do you have difficulty concentrating, remembering or making decisions? No MIGRATION.90311549 26 Information not available 11/24/2022 Family History [...] s Lympho ma the other good health [email or web address] Not available 07/26/2023 11:38:30 Father Diabetes mellitus MIGRATION.106 [id number] Not available 11/24/2022 08:43:43 Mother Diabetes mellitus MIGRATION.491 [id number] Not available 11/24/2022 08:43:43 Medical History Condition [...] ARTERY DISEASE (CAD) N ADDICTION CONCERNS N ENDOMETRIOSIS N Impotence N USE OF BLOOD THINNERS N SKIN [...] GLAUCOMA N FOOT PROBLEM N DIVERTICULITIS N CHICKENPOX N SLEEP APNEA N INFECTIOUS DISEASE N HEART ARRHYTHMIA N PROSTATE N INSOMNIA N HIGH CHOLESTEROL / HYPERLIPIDEMIA N HYPERTHYROIDISM N EYE PROBLEMS N EDEMA N CHRONIC PAIN SYNDROME N HYPOTHYROIDISM N CAROTID BLOCKAGE N CONSTIPATION N BACK / NECK PROBLEMS N HAVE YOU BEEN HOSPITALIZED OR SEEN IN [facility] IN THE PAST YEAR ? N ATHEROSCLEROSIS N BREAST PROBLEMS N DIALYSIS N ECZEMA N OSTEOPOROSIS N ARTHRITIS N NO SIGNIFICANT PAST MEDICAL HISTORY N APPENDICITIS N DIABETES, TYPE N BAD TEETH N ENT N HEARTBURN / REFLUX N AUTISM SPECTRUM DISORDER (ASD) N HEPATITIS / LIVER DISEASE N GOUT N SLEEP DISORDER N ALZHEIMER'S DISEASE N Brain Problems N HERPES N DEMENTIA N HEADACHES/MIGRAINES N SEIZURES/EPILEPSY N VASCULAR DISEASE N PACEMAKER N Blood Disorder N DIZZINESS N HEART DISEASE/HEART PROBLEMS N KIDNEY DISEASE N MULTIPLE SCLEROSIS N CARDIAC ARRHYTHMIA N CANCER: SPECIFY N ATRIAL FIBRILLATION N Gall Stones N [...] SARS-COV-2 (COVID-19) vaccine, UNSPECIFIED 3 completed Ruth Slecka null, [facility] [employer] 07/26/2023 11:24:36 influenza, unspecified formulation 3 completed Ruth Slecka null, [facility] [employer] 07/26/2023 11:24:55 influenza, unspecified formulation 2 completed Not Available [facility] 11/24/2022 08:52:23 COVID-19, mRNA, LNP-S, PF, 100 mcg/0.5mL dose or 50 mcg/0.25mL dose 2 completed Not Available [facility] 11/24/2022 08:52:23 Influenza, high-dose, trivalent, PF 1 completed Not Available [facility] 11/24/2022 08:52:23 zoster, unspecified formulation 0 completed Not Available [facility] 11/24/2022 08:52:24 Influenza, high-dose, quadrivalent, PF 0 completed Not Available [facility] 11/24/2022 08:52:24 Tdap 8 completed Not Available [facility] 11/24/2022 08:52:24 Influenza, split virus, quadrivalent, preservative 7 completed Not Available [facility] 11/24/2022 08:52:24 Influenza, high-dose, trivalent, PF 6 completed Not Available [facility] 11/24/2022 08:52:24 Influenza, split virus, trivalent, preservative 4 completed Not Available [facility] 11/24/2022 08:52:24 Influenza, split virus, trivalent, preservative 4 completed Not Available [facility] 11/24/2022 08:52:24 Pneumococcal conjugate PCV 13 0 completed Not Available [facility] 11/24/2022 08:52:24 Influenza, high-dose, trivalent, PF 9 completed Not Available [facility] 11/24/2022 08:52:25 Influenza, high-dose, trivalent, PF 8 completed Not Available [facility] 11/24/2022 08:52:25 Tdap 8 completed Not Available [facility] 11/24/2022 08:52:25 Influenza, high-dose, trivalent, PF 6 completed Not Available [facility] 11/24/2022 08:52:25 Influenza, high-dose, trivalent, PF 5 completed Not Available [facility] 11/24/2022 08:52:25 pneumococcal polysaccharide PPV23 4 completed Not Available [facility] 11/24/2022 08:52:25 Past Encounters Encounter ID Performer Location Encounter Start Date Encounter Closed Date Diagnosis/Indication Diagnosis SNOMED-CT Code Diagnosis ICD10 Code Diagnosis Note [id number] Crow Rowe MD [address] [address] 02/20/2021 00:00:00 02/20/2021 14:26:02 [id number] Crow Rowe MD [facility] [address] [address] 08/25/2021 00:00:00 08/26/2021 16:54:12 [id number] Crow Rowe MD [facility] [address] [address] 11/17/2021 00:00:00 11/17/2021 12:01:11 [id number] Crow Rowe MD [facility] [address] [address] 03/11/2022 00:00:00 03/11/2022 17:32:22 [id number] Lisa Medley NP [address] [address] 04/30/2022 00:00:00 04/30/2022 09:53:36 [id number] Lisa Medley NP [address] [address] 05/12/2022 00:00:00 05/12/2022 17:12:34 [id number] Crow Rowe MD [address] [address] 08/13/2022 00:00:00 08/13/2022 11:13:42 [id number] Gordo Harrison MD [facility] [place] [address] [place] [address] [place] [address] 10/19/2022 00:00:00 10/19/2022 15:11:10 [id number] Gordo Harrison MD [facility] [place] [facility] [address] [place] [address] 07/26/2023 11:17:46 07/26/2023 11:55:05 Essential hypertension 25295882 I10 Hyperlipidemia 67365038 E78.5 Carcinoma of colon 22941 3000 C18.9 Mild neuro cognitive disorder 168086172 G31.84 [id number] Gordo Harrison MD [facility] Internal [facility] [place] [address] , [place] [address] 11/29/2023 14:27:04 11/30/2023 08:32:51 Adult health examination 065932073 Z00.00 Screening for disorder 192812127 Z13.9 Essential hypertension 49102044 I10 Hyperlipidemia 42633740 E78.5 Carcinoma of colon 82325 3000 C18.9 Depressive disorder 3548 9007 F32.A Vitamin D deficiency 347 84526 E55.9 [id number] Gordo Harrison MD [facility] Internal [facility] [place] [address] , [place] [address] 05/10/2024 16:22:03 05/10/2024 17:40:20 Abnormal weight 88119685 R63.4 Essential hypertension 17917776 I10 Hyperlipidemia 65992339 E78.5 Carcinoma of colon 71684 3000 C18.9 [id number] Gordo Harrison MD [facility] Internal Med [facility] [address] [facility] [place] [address] 06/12/2024 14:14:58 06/12/2024 14:39:54 Depressive disorder 79853397 F32.A Carcinoma of colon 43053 3000 C18.9 Hyperlipidemia 92749172 E78.5 [id number] Gordo Harrison MD [facility] Internal Med [facility] [address] [facility] [place] [address] 07/24/2024 14:46:36 07/24/2024 15:33:37 Carcinoma of colon 708451844 C18.9 Essential hypertension 16453158 I10 Hyperlipidemia 54723741 E78.5 Dementia 33597298 F03.90 [id number] Gordo Harrison MD [facility] [address] [facility] [address] [place] [address] 09/04/2024 14:28:57 09/04/2024 15:17:23 Essential hypertension 85261946 I10 Hyperlipidemia 41306420 E78.5 Dementia 92771131 F03.90 Health Concerns Section Related Observation LastModified by Organization Detai ls LastModified Time None Recorded Concern Status LastModified by Organization Details LastModified Time None Recorded Advance Directives Directive Y: Payers Encounter Date Sequence Insurance Name Policy Number Policy Capellan Covered Member ID Capellan Member ID Guarantor Name 11/29/2023 1 [employer] (MEDICARE REPLACEMENT/ ADVANTAGE - PPO) [id number] Manolo Jane Denue [id number] Manolo Denue 05/10/2024 1 [employer] (MEDICARE REPLACEMENT/ ADVANTAGE - PPO) [id number] Manolo Jane Denue [id number] Orlandona Denue 06/12/2024 1 [employer] (MEDICARE REPLACEMENT/ ADVANTAGE - PPO) [id number] Manolo Jane Denue [id number] Orlandona Denue 07/24/2024 1 [employer] (MEDICARE REPLACEMENT/ ADVANTAGE - PPO) [id number] Manolo Hassan [id number] Manolo Hassan 09/04/2024 1 [employer] (MEDICARE REPLACEMENT/ ADVANTAGE - PPO) [id number] Manolo Hassan [id number] Manolo Hassan Notes Date Note Type Note Provider Name [...] 5 MG TABLET One Daily Vaccination and Sxwtxkcssqql4453-31 Nbnkuuvmu5104-33 Covid Booster Qsnhksb1435-06 Covid Epkanpb7196-63 Zostavax (shingles)2020-07 Prevnar 13 Bq9031-09 Pneumovax Surgical Slhzlud2655-83 Left Hemicolectomy Preventative Ccchaii9008/26/2023 COLONOSCOPY ( 3 YEARS ) 6110/25/2021 COLOGUARD 08/25/2025 Social 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 Family HistoryMother Living 97 in good healthFather 90 with CAD, CABG, CHF and Ca prostateTwo brothers both living one with esophageal cyst and the other in good health.Two sisters both living one with non-Hodgkin's Lymphoma the other good health Gordo Harrison MD [address] [facility], [facility] [address], [place], [address], [facility] 11/29/2023 14:52:40 4 text/html Patient Name: Manolo Oliveraate Of Service: April ( 05.10.2024 ): 1945 [...] 10 MG TABLET One Daily Vaccination and Jzvwwamdcwxw9813-71 Kwrhnmhyj0634-89 Covid Booster Nynwqjd8183-40 Covid Vkmwycs7279-52 Zostavax (shingles)2020-07 Prevnar 13 Qe0321-54 Pneumovax Surgical Htfcrkd2066-60 Left Hemicolectomy Preventative Testing( ) 12/01/2023 DEXA Scan (Osteoporosis)( ) 08/26/2023 Colonoscopy ( 3 Years ) 08/26/2026 Social 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 Family HistoryMother Living 97 in good healthFather 90 with CAD, CABG, CHF and Ca prostateTwo brothers both living one with esophageal cyst and the other in good health.Two sisters both living one with non-Hodgkin's Lymphoma the other good health Gordo Harrison MD [address] [facility], [facility] [address], [place], [address], [facility] [employer] 05/10/2024 17:35:11 4 text/html Patient Name: Manolo Oliveraate Of Service: Tuesday ( 06.12.2024 ): 1945 [...] 10 MG TABLET One Daily Vaccination and Cxviyndhqkgj3920-66 Hjhumtqzi4843-14 Covid Booster Hjrztce6679-19 Covid Acrndow3515-08 Zostavax (shingles)2020-07 Prevnar 13 Pj8389-99 Pneumovax Surgical Njomkav1676-58 Left Hemicolectomy Preventative Testing( ) 12/01/2023 DEXA Scan (Osteoporosis)( ) 08/26/2023 Colonoscopy ( 3 Years ) 08/26/2026 Social 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 Family HistoryMother Living 97 in good healthFather 90 with CAD, CABG, CHF and Ca prostateTwo brothers both living one with esophageal cyst and the other in good health.Two sisters both living one with non-Hodgkin's Lymphoma the other good health Gordo Harrison MD [address] [facility], [place] [address], [place], [address], [facility] 06/12/2024 14:35:41 4 text/html Patient Name: Manolo [...] PNEUMOVAX( ) 2020-07 PREVNAR 13 GC Surgical Qfkuqyx2824-22 Left Hemicolectomy Preventative Testing( ) 12/01/2023 DEXA Scan (Osteoporosis)( ) 08/26/2023 Colonoscopy ( 3 Years ) 08/26/2026 Social 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 Family HistoryMother Living 97 in good healthFather 90 with CAD, CABG, CHF and Ca prostateTwo brothers both living one with esophageal cyst and the other in good health.Two sisters both living one with non-Hodgkin's Lymphoma the other good health Gordo Harrison MD [address] [facility], [facility] [address], [place], [address], [facility] [employer] 07/24/2024 15:17:34 4 text/html Patient Name: Manolo [...] PNEUMOVAX( ) 2020-07 PREVNAR 13 GC Surgical Oyblmbs9113-64 Left Hemicolectomy Preventative Testing( ) 12/01/2023 DEXA Scan (Osteoporosis)( ) 08/26/2023 Colonoscopy ( 3 Years ) 08/26/2026 Social 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
--- OUTSIDE RECORDS SUMMARY | 2025-02-19 16:07 | XMS_ITS | Clinical Summary ---
Author Organization [facility] Address [address] [place] [address] Care Team Providers Care Parts Puller Name Role Phone Gordo Harrison MD Primary Care Provider Ghassan Viveros MD Unavailable [phone] Beck Gruber MD Unavailable [phone] Barry Rodriguez MD Unavailable [phone] Allergies No known active allergies Medications pravastatin [...] changes Assessment & Plan (10/26/2022 1:38 PM RAM CAR OPERATOR): We will set the patient up for [...] meetings before with the genetic counselor in [place]. There is family history of RLS, including [...] (09/14/2022): Added automatically from request for surgery [id number] Immunizations Immunization Administration Dates Next Due Influenza, [...] week 12/01/2022 How often do you attend druze or mormonism serv ices? 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 Not on file Not on file Not on file Obstetrics History Last Filed Vital Signs Vital Sign Reading Time Taken Comments Blood Pressure 147/60 08/26/2023 11:30 AM RAM CAR OPERATOR Pulse 57 08/26/2023 11:30 AM RAM CAR OPERATOR Temperature 37 C (98.6 F) 08/26/2023 11:30 AM RAM CAR OPERATOR Respiratory Rate 20 08/26/2023 11:30 AM RAM CAR OPERATOR Oxygen Saturation 100% 08/26/2023 11:30 AM RAM CAR OPERATOR Inhaled Oxygen Concentration - - Weight 44.9 kg (99 lb) 08/26/2023 10:20 AM RAM CAR OPERATOR Height 154.9 cm (5' 1) 08/26/2023 10:20 AM RAM CAR OPERATOR Body Mass Index 18.71 08/26/2023 10:20 AM RAM CAR OPERATOR Plan of Treatment Health Maintenance Due Date [...] 08/26/2023, 10/21/2022 Medical Devices Implanted Type Area Relay Motorman Device Identifier Shelf Expiration Date Model / Serial / Lot Startup [employer] Weck Hem-O-Guille Ligate Nonabsorbable Cartridge Medium Large Latex Free [id number] - [id number] Implanted:Qty: 1 on 11/29/2022 by Adrien Hendrickson MD at [facility] N/A: Abdomen [employer] 08/23/2027 [id number] / / [id number] Description:2 clips implante d Procedures Procedure Name Priority Date/Time Associated Diagnosis Comments COLONOSCOPY 08/26/2023 10:11 AM RAM CAR OPERATOR from Last 3 Months or Most Recently Relevant to Health Maintenance Results * COLONOSCOPY (08/26/2023 10:11 AM RAM CAR OPERATOR) Anatomical Region Laterality Modality Other Narrative Procedure Note Ghassan Viveros MD - 08/26/2023 10:11 AM CST [facility] Patient Name: Carlos Hassan Procedure Date: 08/26/2023 10:11 AM Date of : 1945 Admit Type: Outpatient Age: 78 Gender: Female Attending MD: Ghassan Viveros M.D. Room: [facility] ENDOSCOPY ROOM 2 Note Status: Finalized Patient [...] under direct vision. The Pediatric Colonoscope PCF-H190L [id number] was introducedthrough the anus and advanced to [...] malignant neoplasm of largeintestine CPT copyright 2020 [employer]. All rights reserved. The codes documented in this report are preliminary and upon tile picker reviewmay be revised to meet current compliance requirements. Recognized by the [employer] for promoting quality in endoscopy Ghassan Viveros MD ENDOSCOPY PROCEDURES Final Re sult from Last 3 Months or Most Recently Relevant to Health Maintenance Insurance T MEDICARE AET MEDICARE AETNA MEDICARE Advance Directives For more information, please contact: [phone] * Full Code (Latest Code Status on [...] 10:30 AM 10/21/2022 10:30 AM Care Teams Parts Puller Relationship Specialty Start Date End Date Gordo Harrison MD [address] [place] [id number] PCP - General Internal Medicine 10/21/22 Ghassan Viveros MD [address] [place] [address] Consulting Physician Gastroenterology 10/27/22 Beck Gruber MD [address] [place] [address] Medical Oncologist/Hematologi Hematology and Oncology 12/23/22 Barry Rodriguez MD [address] [place] [address] Referring Physician Neurology 04/17/24
--- OUTSIDE RECORDS SUMMARY | 2025-02-19 16:07 | XMS_ITS | Clinical Summary ---
Author Organization [facility] Address [address] [place] [address] Care Team Providers Care Android Ui Developer Name Role Phone Gordo Harrison MD Primary Care Provider [phone] Source Comments [facility],non-owned Affiliates and Associated Physician Practices is amultiple site organization consisting of ambulatory clinics and hospital sitesin [place], [place], [place] and [place]. This disclosure is being madepursuant to the Care Everywhere program and may not contain all information available regarding this patient. Last updated 18.[facility] [email or web address] Social History Tobacco Use Types Packs/Day Years Used Date Smoking Tobacco: Never Assessed Comments Unknown Sex and Gender Information Value Date Recorded Sex Assigned at Not on file Legal Sex Female 8:18 AM SINGER SONGWRITER Gender Identity Female 11/10/2023 8:31 AM SINGER SONGWRITER Sexual Orientation Straight 11/10/2023 8: 31 AM SINGER SONGWRITER Plan of Treatment Health Maintenance Due Date [...] MEDICARE ADV AETNA MEDICARE ADV Care Teams Android Ui Developer Relationship Specialty Start Date End Date Harrison, Gordo T, MD [address] [address] [address] [place] [address] PCP - General Internal Medicine 11/10/23
--- OUTSIDE RECORDS SUMMARY | 2025-02-19 16:07 | XMS_ITS | Referral Summary ---
Author Organization [facility] Address [address] [place] [address] Care Team Providers Care Delivery Nurse Name Role Phone Gordo Harrison MD Primary Care Provider Ghassan Viveros MD Unavailable [phone] Beck Gruber MD Unavailable [phone] Barry Rodriguez MD Unavailable [phone] Allergies No known active allergies Medications pravastatin [...] changes Assessment & Plan (10/26/2022 1:38 PM LABOR RELATIONS OFFICER): We will set the patient up for [...] meetings before with the genetic counselor in [place]. There is family history of RLS, including [...] (09/14/2022): Added automatically from request for surgery [id number] Immunizations Immunization Administration Dates Next Due Influenza, [...] week 12/01/2022 How often do you attend sabianist or faith serv ices? 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 Not on file Not on file Not on file Last Filed Vital Signs Vital Sign Reading Time Taken Comments Blood Pressure 147/60 08/26/2023 11:30 AM LABOR RELATIONS OFFICER Pulse 57 08/26/2023 11:30 AM LABOR RELATIONS OFFICER Temperature 37 C (98.6 F) 08/26/2023 11:30 AM LABOR RELATIONS OFFICER Respiratory Rate 20 08/26/2023 11:30 AM LABOR RELATIONS OFFICER Oxygen Saturation 100% 08/26/2023 11:30 AM LABOR RELATIONS OFFICER Inhaled Oxygen Concentration - - Weight 44.9 kg (99 lb) 08/26/2023 10:20 AM LABOR RELATIONS OFFICER Height 154.9 cm (5' 1) 08/26/2023 10:20 AM LABOR RELATIONS OFFICER Body Mass Index 18.71 08/26/2023 10:20 AM LABOR RELATIONS OFFICER Plan of Treatment Not on file Medical Devices Implanted Type Area Seed District Sales Manager Device Identifier Shelf Expiration Date Model / Serial / Lot [employer] Weck Hem-O-Guille Ligate Nonabsorbable Cartridge Medium Large Latex Free [id number] - [id number] Implanted:Qty: 1 on 11/29/2022 by Adrien Hendrickson MD at [facility] N/A: Abdomen [email or web address] 08/23/2027 [id number] / / [id number] Description:2 clips implante d Procedures Procedure Name Priority Date/Time Associated Diagnosis Comments COLONOSCOPY 08/26/2023 10:11 AM LABOR RELATIONS OFFICER from Last 3 Months or Most Recently Relevant to Health Maintenance Results * COLONOSCOPY (08/26/2023 10:11 AM LABOR RELATIONS OFFICER) Anatomical Region Laterality Modality Other Narrative Procedure Note Ghassan Viveros MD - 08/26/2023 10:11 AM CST [facility] Patient Name: Carlos Hassan Procedure Date: 08/26/2023 10:11 AM Date of : 1945 Admit Type: Outpatient Age: 78 Gender: Female Attending MD: Ghassan Viveros M.D. Room: [facility] ENDOSCOPY ROOM 2 Note Status: Finalized Patient [...] under direct vision. The Pediatric Colonoscope PCF-H190L [id number] was introducedthrough the anus and advanced to [...] malignant neoplasm of largeintestine CPT copyright 2020 [employer]. All rights reserved. The codes documented in this report are preliminary and upon roofer reviewmay be revised to meet current compliance requirements. Recognized by the [employer] for promoting quality in endoscopy Ghassan Viveros MD ENDOSCOPY PROCEDURES Final Re sult from Last 3 Months or Most Recently Relevant to Health Maintenance Insurance [facility] MEDICARE [employer] MEDICARE AETNA MEDICARE Advance Directives For more information, please contact: [phone] * Full Code (Latest Code Status on [...] 10:30 AM 10/21/2022 10:30 AM Care Teams Delivery Nurse Relationship Specialty Start Date End Date Gordo Harrison MD [address] [place] [id number] PCP - General Internal Medicine 10/21/22 Ghassan Viveros MD [address] [place] [address] [address] [place] [address] Consulting Physician Gastroenterology 10/27/22 Beck Gruber MD [address] [place] [address] [place] [address] Medical Oncologist/Hematologi Hematology and Oncology 12/23/22 Barry Rodriguez MD [address] [place] [address] Referring Physician Neurology 04/17/24
[2025-02-19 16:18] VITALS: PULSE 85; RESP 18
[2025-02-19] MEDS: MORPHINE 50 MG/NS 100ML (*CRX) 50 MG/100 ML BAG IV CONT (16:18)
[2025-02-19] MEDS: HALOPERIDOL LACTATE 5 MG/ML VIAL IM (16:36)
--- NOTE | 2025-02-19 19:01 | P.HP_ITS ---
H&P: HPI History of Present Illness Date/Time: 02/19/25 19:01 Chief Complaint: Uncontrolled restlessness Narrative: 79-year-old female with history of dementia was functioning fairly well at home, eating and drinking. She required assistance with all ADLs including set up for feeding. She was becoming incontinent of stool and urine. She was having nighttime behaviors with agitation and confusion. plan to admit her to a memory care facility in February of this year. However she fell and fractured her right hip 1 week ago. On February 13 she had ORIF right hip. Since then she has not had any significant oral intake. She has been. Maintain on IV fluids. Because of increasing agitation and confusion and minimal oral intake her family opted against a feeding tube and opted for inpatient hospice service for uncontrolled agitation. Review of Systems Review of Systems: ROS unobtainable: Yes unobtainable due to medical condition PMFSH Past Medical History Medical History Dementia History of colon cancer Early satiety Weight loss Surgical History Surgical History H/O left hemicolectomy Family History Family History Mother No pertinent past medical history Father No pertinent past medical history Social History Social History (Updated 02/19/25 @ 19:23 by David Watson MD) Social History: Code status: DNR Smoking status: Former smoker Alcohol intake: never Alcohol use details: social Substance use: never Living arrangements: with family Additional living arrangements comments: Occupation/Education: retired Gender identity (if verbalized by the patient): Female Sexual Orientation (if Verbalized by the Patient): Straight or Heterosexual Spiritual care concerns: No Meds Home Medications and Allergies Home Medications ?Medication ?Instructions ?Recorded ?Confirmed ?Type pravastatin 20 mg tablet 20 mg PO DAILY 06/29/20 02/19/25 History alendronate 70 mg tablet 70 mg PO WEEKLY 02/12/25 02/19/25 History escitalopram oxalate 20 mg tablet 20 mg PO DAILY 02/12/25 02/19/25 History memantine 5 mg tablet 10 mg PO DAILY 02/12/25 02/19/25 History mirtazapine 15 mg tablet 15 mg PO DAILY 02/12/25 02/19/25 History quetiapine 25 mg tablet 25 mg PO PRN PRN complex 02/12/25 02/19/25 History quetiapine 50 mg tablet 50 mg PO PRN PRN complex 02/12/25 02/19/25 History escitalopram oxalate 10 mg tablet mg 02/19/25 History Allergies Allergy/AdvReac Type Severity Reaction Status Date / Time No Known Allergies Allergy Verified 02/13/25 14:45 Vital Signs Vital Signs - 24 hr 02/19/25 15:34 02/19/25 16:18 Pulse Rate 85 85 Respiratory Rate 18 Pulse Oximetry 97 Oxygen Delivery Room Air Exam Narrative: HEENT: Pharyngeal mucosa pink and intact NECK: No JVD CHEST: Clear to auscultation. Normal effort HEART: NL S1/S2, regular, no murmur ABDOMEN: BS+, soft, nontender, no mass, no bruits EXTREMITIES: No cyanosis, edema, or clubbing NEUROLOGIC: CN intact and symmetric to inspection MUSCULOSKELETAL: No deformity to visual inspection PSYCH: Awake with eyes closed. Speech nondirected and unintelligible. Oriented to person, not to place or time. Does not follow commands or answer questions. Assessment and Plan Assessment and plan (1) Hospice care: Code(s): Z51.5 - Encounter for palliative care Status: Acute Assessment and Plan: * Meet inpatient hospice criteria due to require continues IV morphine at 1 milligram/hour for control of pain and related agitation * P.r.n. palliative regimen with haloperidol, lorazepam, prochlorperazine, glycopyrrolate, natural tears, and Dulcolax ordered * 02/19/2025 discussed care prognosis with sister at bedside (2) Delirium due to another medical condition: Code(s): F05 - Delirium due to known physiological condition Status: Acute (3) Dementia: Qualifiers: Dementia type: Alzheimer's Alzheimer's disease onset: other onset Dementia severity: severe Dementia behavioral or psychological symptom: with agitation Qualified Code(s): G30.8 - Other Alzheimer's disease; F02.C11 - Dementia in other diseases classified elsewhere, severe, with agitation Code(s): F03.90 - Unspecified dementia, unspecified severity, without behavioral disturbance, psychotic disturbance, mood disturbance, and anxiety Status: Acute (4) Closed intertrochanteric fracture of right femur: Qualifiers: Encounter type: subsequent encounter Fracture alignment: nondisplaced Fracture healing: with routine healing Qualified Code(s): S72.144D - Nondisplaced intertrochanteric fracture of right femur, subsequent encounter for closed fracture with routine healing Code(s): S72.141A - Displaced intertrochanteric fracture of right femur, initial encounter for closed fracture Status: Acute
[2025-02-19] MEDS: MORPHINE SULFATE (*CRX) 2 MG/ML INJ IV PUSH (21:08)
[2025-02-19] MEDS: LORazepam INJ (*CRX) 2 MG/ML VIAL 1 MG IV PUSH (21:10)
[2025-02-19 21:43] VITALS: BP 139/62; PULSE 74; RESP 14; TEMP 36.5; O2SAT 97
[2025-02-20] MEDS: MORPHINE SULFATE (*CRX) 2 MG/ML INJ IV PUSH (04:39)
[2025-02-20] MEDS: LORazepam INJ (*CRX) 2 MG/ML VIAL 1 MG IV PUSH (04:39)
[2025-02-20 08:00] VITALS: O2SAT 96
[2025-02-20 09:00] VITALS: BP 98/59; PULSE 75; RESP 12; TEMP 36.1; O2SAT 96
[2025-02-20 16:40] VITALS: PULSE 84; RESP 22
[2025-02-20] MEDS: MORPHINE 50 MG/NS 100ML (*CRX) 50 MG/100 ML BAG IV CONT (16:40)
--- NOTE | 2025-02-20 17:10 | P.PNIM_ITS ---
Progress Note: A&P Assessment and Plan (1) Hospice care: Code(s): Z51.5 - Encounter for palliative care Status: Acute Assessment and Plan: * Meet inpatient hospice criteria due to require continues IV morphine at 1 milligram/hour for control of pain and related agitation * P.r.n. palliative regimen with haloperidol, lorazepam, prochlorperazine, glycopyrrolate, natural tears, and Dulcolax ordered * 02/19/2025 discussed care prognosis with sister at bedside * 02/20/2025 no PO intake, now unresponsive, BP trending down to 90's systolic, clearly declining (2) Delirium due to another medical condition: Code(s): F05 - Delirium due to known physiological condition Status: Acute (3) Dementia: Qualifiers: Dementia type: Alzheimer's Alzheimer's disease onset: other onset Dementia severity: severe Dementia behavioral or psychological symptom: with agitation Qualified Code(s): G30.8 - Other Alzheimer's disease; F02.C11 - Dementia in other diseases classified elsewhere, severe, with agitation Code(s): F03.90 - Unspecified dementia, unspecified severity, without behavioral dis turbance, psychotic disturbance, mood disturbance, and anxiety Status: Acute (4) Closed intertrochanteric fracture of right femur: Qualifiers: Encounter type: subsequent encounter Fracture alignment: nondisplaced Fracture healing: with routine healing Qualified Code(s): S72.144D - Nondisplaced intertrochanteric fracture of right femur, subsequent encounter for closed fracture with routine healing Code(s): S72.141A - Displaced intertrochanteric fracture of right femur, initial encounter for closed fracture Status: Acute Subjective Date/time seen: 02/20/25 17:10 Interval history: Last PRN was early AM hours. Comfortable since. Review of Systems Review of Systems: ROS unobtainable: Yes unobtainable due to medical condition Exam Narrative: HEENT: Pharyngeal mucosa pink and intact NECK: No JVD CHEST: Clear to auscultation. Normal effort HEART: NL S1/S2, regular, no murmur ABDOMEN: BS+, soft, nontender, no mass, no bruits EXTREMITIES: No cyanosis, edema, or clubbing NEUROLOGIC: CN intact and symmetric to inspection MUSCULOSKELETAL: No deformity to visual inspection PSYCH: Unresponsive to verbal or tactile stimuli Objective Data Vital Signs Vital Signs: Vital Signs - 24 hr 02/19/25 20:00 02/19/25 21:43 02/20/25 08:00 Temperature 97.7 F Pulse Rate 74 Respiratory Rate 14 Blood Pressure 139/62 Pulse Oximetry 97 96 Oxygen Delivery Room Air Room Air 02/20/25 09:00 02/20/25 16:40 02/20/25 16:40 Temperature 97.0 F L Pulse Rate 75 84 84 Respiratory Rate 12 22 H 22 H Blood Pressure 98/59 L Pulse Oximetry 96 Oxygen Delivery Intake/Output Intake/Output: Intake & Output 02/17/25 02/18/25 02/19/25 02/20/25 23:59 23:59 23:59 23:59 Intake Total 48.7 Output Total 950 500 Balance -950 -451.3 Meds/Results Medications: Active Medications Generic Name Dose Route Start Last Admin Trade Name Freq PRN Reason Stop Dose Admin Artificial Tears 0 drop 02/19/25 15:47 Artificial Tears Ophth Soln 15 Ml Bottle EACH EYE Q8H PRN Dry Eye(s) Bisacodyl 10 mg 02/19/25 15:47 Bisacodyl 10 Mg Suppository RECTAL QAM PRN Constipation Glycopyrrolate 0.1 mg 02/19/25 15:46 Glycopyrrolate Inj (*Sp) 0.2 Mg/Ml Vial IV PUSH Q4H PRN Secretions Haloperidol Lactate 5 mg 02/19/25 15:45 02/19/25 16:36 Haloperidol Lactate 5 Mg/Ml Vial IM 5 mg Q8H PRN Administration Agitation Morphine Sulfate 50 mg in 100 mls @ 2 mls/hr 02/19/25 16:15 02/20/25 16:40 IV CONT 1 mg/hr .Q24H JOSÉ 2 mls/hr Administration 1 MG/HR Lorazepam 1 mg 02/19/25 15:45 02/20/25 04:39 Lorazepam Inj (*Crx) 2 Mg/Ml Vial IV PUSH 1 mg Q4H PRN Administration restlessness Morphine Sulfate 2 mg 02/19/25 15:44 02/20/25 04:39 Morphine Sulfate (*Crx) 2 Mg/Ml Inj IV PUSH 2 mg Q2H PRN Administration Pain/Dyspnea Prochlorperazine Edisylate 10 mg 02/19/25 15:46 Prochlorperazine Edisylate 10 Mg/2 Ml Vial IV PUSH Q6H PRN Nausea And Vomiting
[2025-02-20 20:33] VITALS: BP 155/64; PULSE 85; RESP 16; TEMP 36.7; O2SAT 92
[2025-02-21] MEDS: MORPHINE SULFATE (*CRX) 2 MG/ML INJ IV PUSH ×2 (08:53→21:02)
[2025-02-21 09:00] VITALS: BP 150/60; PULSE 86; RESP 18; TEMP 36.7; O2SAT 92
[2025-02-21 09:17] VITALS: O2SAT 97
[2025-02-21] MEDS: LORazepam INJ (*CRX) 2 MG/ML VIAL 1 MG IV PUSH (11:05)
--- NOTE | 2025-02-21 16:49 | P.PNIM_ITS ---
Progress Note: A&P Assessment and Plan (1) Hospice care: Code(s): Z51.5 - Encounter for palliative care Status: Acute Assessment and Plan: * Meet inpatient hospice criteria due to require continues IV morphine at 1 milligram/hour for control of pain and related agitation * P.r.n. palliative regimen with haloperidol, lorazepam, prochlorperazine, glycopyrrolate, natural tears, and Dulcolax ordered * 02/19/2025 discussed care prognosis with sister at bedside * 02/20/2025 no PO intake, now unresponsive, BP trending down to 90's systolic, clearly declining * 02/21/2025 no PO intake, required additional prn meds x 2 today with bp increased likely due to pain and agitation. Discussed care and prognosis with spouse at bedside. (2) Delirium due to another medical condition: Code(s): F05 - Delirium due to known physiological condition Status: Acute (3) Dementia: Qualifiers: Dementia type: Alzheimer's Alzheimer's disease onset: other onset Dementia severity: severe Dementia behavioral or psychological symptom: with agitation Qualified Code(s): G30.8 - Other Alzheimer's disease; F02.C11 - Dementia in other diseases classified elsewhere, severe, with agitation Code(s): F03.90 - Unspecified dementia, unspecified severity, without behavioral disturbance, psychotic disturbance, mood disturbance, and anxiety Status: Acute (4) Closed intertrochanteric fracture of right femur: Qualifiers: Encounter type: subsequent encounter Fracture alignment: nondisplaced Fracture healing: with routine healing Qualified Code(s): S72.144D - Nondisplaced intertrochanteric fracture of right femur, subsequent encounter for closed fracture with routine healing Code(s): S72.141A - Displaced intertrochanteric fracture of right femur, initial encounter for closed fracture Status: Acute Subjective Date/time seen: 02/21/25 16:49 Interval history: Required two prn doses, one ativan and one morphine, today. No PO intake. Review of Systems Review of Systems: ROS unobtainable: Yes unobtainable due to medical condition Exam Narrative: HEENT: Pharyngeal mucosa pink and intact NECK: No JVD CHEST: Clear to auscultation. Normal effort HEART: NL S1/S2, regular, no murmur ABDOMEN: BS+, soft, nontender, no mass, no bruits EXTREMITIES: No cyanosis, edema, or clubbing NEUROLOGIC: CN intact and symmetric to inspection MUSCULOSKELETAL: No deformity to visual inspection PSYCH: Unresponsive to verbal or tactile stimuli Objective Data Vital Signs Vital Signs: Vital Signs - 24 hr 02/20/25 20:33 02/21/25 09:00 02/21/25 09:17 Temperature 98.0 F 98.0 F Pulse Rate 85 86 Respiratory Rate 16 18 Blood Pressure 155/64 H 150/60 H Pulse Oximetry 92 92 97 Oxygen Delivery Room Air Intake/Output Intake/Output: Intake & Output 02/18/25 02/19/25 02/20/25 02/21/25 23:59 23:59 23:59 23:59 Intake Total 48.7 0 Output Total 950 600 500 Balance -950 -551.3 -500 Meds/Results Medications: Active Medications Generic Name Dose Route Start Last Admin Trade Name Freq PRN Reason Stop Dose Admin Artificial Tears 0 drop 02/19/25 15:47 Artificial Tears Ophth Soln 15 Ml Bottle EACH EYE Q8H PRN Dry Eye(s) Bisacodyl 10 mg 02/19/25 15:47 Bisacodyl 10 Mg Suppository RECTAL QAM PRN Constipation Glycopyrrolate 0.1 mg 02/19/25 15:46 Glycopyrrolate Inj (*Sp) 0.2 Mg/Ml Vial IV PUSH Q4H PRN Secretions Haloperidol Lactate 5 mg 02/19/25 15:45 02/19/25 16:36 Haloperidol Lactate 5 Mg/Ml Vial IM 5 mg Q8H PRN Administration Agitation Morphine Sulfate 50 mg in 100 mls @ 2 mls/hr 02/19/25 16:15 02/20/25 16:40 IV CONT 1 mg/hr .Q24H JOSÉ 2 mls/hr Administration 1 MG/HR Lorazepam 1 mg 02/19/25 15:45 02/21/25 11:05 Lorazepam Inj (*Crx) 2 Mg/Ml Vial IV PUSH 1 mg Q4H PRN Administration restlessness Morphine Sulfate 2 mg 02/19/25 15:44 02/21/25 08:53 Morphine Sulfate (*Crx) 2 Mg/Ml Inj IV PUSH 2 mg Q2H PRN Administration Pain/Dyspnea Prochlorperazine Edisylate 10 mg 02/19/25 15:46 Prochlorperazine Edisylate 10 Mg/2 Ml Vial IV PUSH Q6H PRN Nausea And Vomiting
[2025-02-21 17:23] VITALS: PULSE 68; RESP 16
[2025-02-21] MEDS: MORPHINE 50 MG/NS 100ML (*CRX) 50 MG/100 ML BAG IV CONT (17:23)
[2025-02-21 20:10] VITALS: BP 178/86; PULSE 102; RESP 16; TEMP 36.1; O2SAT 91
[2025-02-22] MEDS: MORPHINE SULFATE (*CRX) 2 MG/ML INJ IV PUSH (08:42)
[2025-02-22 14:02] VITALS: BP 157/62; PULSE 100; RESP 14; TEMP 36.8; O2SAT 91
[2025-02-22] MEDS: MORPHINE 50 MG/NS 100ML (*CRX) 50 MG/100 ML BAG IV CONT (16:38)
--- NOTE | 2025-02-22 18:11 | P.PNIM_ITS ---
Progress Note: A&P Assessment and Plan (1) Hospice care: Code(s): Z51.5 - Encounter for palliative care Status: Acute Assessment and Plan: * Meet inpatient hospice criteria due to require continues IV morphine at 1 milligram/hour for control of pain and related agitation * P.r.n. palliative regimen with haloperidol, lorazepam, prochlorperazine, glycopyrrolate, natural tears, and Dulcolax ordered * 02/19/2025 discussed care prognosis with sister at bedside * 02/20/2025 no PO intake, now unresponsive, BP trending down to 90's systolic, clearly declining * 02/21/2025 no PO intake, required additional prn meds x 2 today with bp increased likely due to pain and agitation. Discussed care and prognosis with spouse at bedside. * 02/22/2025 no PO intake. Continues to require morphine infusion for control of pain. (2) Delirium due to another medical condition: Code(s): F05 - Delirium due to known physiological condition Status: Acute (3) Dementia: Qualifiers: Alzheimer's disease onset: other onset Dementia behavioral or psychological symptom: with agitation Dementia severity: severe Dementia type: Alzheimer's Qualified Code(s): G30.8 - Other Alzheimer's disease; F02.C11 - Dementia in other diseases classified elsewhere, severe, with agitation Code(s): F03.90 - Unspecified dementia, unspecified severity, without behavioral disturbance, psychotic disturbance, mood disturbance, and anxiety Status: Acute (4) Closed intertrochanteric fracture of right femur: Qualifiers: Encounter type: subsequent encounter Fracture alignment: nondisplaced Fracture healing: with routine healing Qualified Code(s): S72.144D - Nondisplaced intertrochanteric fracture of right femur, subsequent encounter for closed fracture with routine healing Code(s): S72.141A - Displaced intertrochanteric fracture of right femur, initial encounter for closed fracture Status: Acute Subjective Date/time seen: 02/22/25 18:11 Interval history: No PO intake. Remains comfortable. Review of Systems Review of Systems: ROS unobtainable: Yes unobtainable due to medical condition Exam Narrative: HEENT: Pharyngeal mucosa pink and intact NECK: No JVD CHEST: Clear to auscultation. Normal effort HEART: NL S1/S2, regular, no murmur ABDOMEN: BS+, soft, nontender, no mass, no bruits EXTREMITIES: No cyanosis, edema, or clubbing NEUROLOGIC: CN intact and symmetric to inspection MUSCULOSKELETAL: No deformity to visual inspection PSYCH: Unresponsive to verbal or tactile stimuli Objective Data Vital Signs Vital Signs: Vital Signs - 24 hr 02/21/25 20:10 02/22/25 08:00 02/22/25 14:02 Temperature 97 F L 98.3 F Pulse Rate 102 H 100 Respiratory Rate 16 14 Blood Pressure 178/86 H 157/62 H Pulse Oximetry 91 91 Oxygen Delivery Room Air Intake/Output Intake/Output: Intake & Output 02/19/25 02/20/25 02/21/25 02/22/25 23:59 23:59 23:59 23:59 Intake Total 48.7 49.4 46.5 Output Total 950 600 700 175 Balance -950 -551.3 -650.6 -128.5 Meds/Results Medications: Active Medications Generic Name Dose Route Start Last Admin Trade Name Freq PRN Reason Stop Dose Admin Artificial Tears 0 drop 02/19/25 15:47 Artificial Tears Ophth Soln 15 Ml Bottle EACH EYE Q8H PRN Dry Eye(s) Bisacodyl 10 mg 02/19/25 15:47 Bisacodyl 10 Mg Suppository RECTAL QAM PRN Constipation Glycopyrrolate 0.1 mg 02/19/25 15:46 Glycopyrrolate Inj (*Sp) 0.2 Mg/Ml Vial IV PUSH Q4H PRN Secretions Haloperidol Lactate 5 mg 02/19/25 15:45 02/19/25 16:36 Haloperidol Lactate 5 Mg/Ml Vial IM 5 mg Q8H PRN Administration Agitation Morphine Sulfate 50 mg in 100 mls @ 2 mls/hr 02/19/25 16:15 02/22/25 16:38 IV CONT 1 mg/hr .Q24H JOSÉ 2 mls/hr Administration 1 MG/HR Lorazepam 1 mg 02/19/25 15:45 02/21/25 11:05 Lorazepam Inj (*Crx) 2 Mg/Ml Vial IV PUSH 1 mg Q4H PRN Administration restlessness Morphine Sulfate 2 mg 02/19/25 15:44 02/22/25 08:42 Morphine Sulfate (*Crx) 2 Mg/Ml Inj IV PUSH 2 mg Q2H PRN Administration Pain/Dyspnea Prochlorperazine Edisylate 10 mg 02/19/25 15:46 Prochlorperazine Edisylate 10 Mg/2 Ml Vial IV PUSH Q6H PRN Nausea And Vomiting
[2025-02-22 22:09] VITALS: BP 185/84; PULSE 105; RESP 19; TEMP 36.1; O2SAT 92
[2025-02-23 10:40] VITALS: BP 145/82; PULSE 101; RESP 16; TEMP 37.6; O2SAT 90
[2025-02-23] MEDS: LORazepam INJ (*CRX) 2 MG/ML VIAL 1 MG IV PUSH (14:10)
--- NOTE | 2025-02-23 14:12 | P.PN_ITS ---
Progress Note: A&P Assessment and Plan (1) Hospice care: Code(s): Z51.5 - Encounter for palliative care Status: Acute Assessment and Plan: * Meet inpatient hospice criteria due to require continues IV morphine at 1 milligram/hour for control of pain and related agitation * P.r.n. palliative regimen with haloperidol, lorazepam, prochlorperazine, glycopyrrolate, natural tears, and Dulcolax ordered * 02/19/2025 discussed care prognosis with sister at bedside * 02/20/2025 no PO intake, now unresponsive, BP trending down to 90's systolic, clearly declining * 02/21/2025 no PO intake, required additional prn meds x 2 today with bp increased likely due to pain and agitation. Discussed care and prognosis with spouse at bedside. * 02/22/2025 no PO intake. Continues to require morphine infusion for control of pain. * 02/23/2025 unresponsive, no po intake. Agitated with care, would benefit from prns being given prior to care. Continues on moprphine drip. (2) Delirium due to another medical condition: Code(s): F05 - Delirium due to known physiological condition Status: Acute (3) Dementia: Qualifiers: Dementia type: Alzheimer's Alzheimer's disease onset: other onset Dementia severity: severe Dementia behavioral or psychological symptom: with agitation Qualified Code(s): G30.8 - Other Alzheimer's disease; F02.C11 - De mentia in other diseases classified elsewhere, severe, with agitation Code(s): F03.90 - Unspecified dementia, unspecified severity, without behavioral disturb ance, psychotic disturbance, mood disturbance, and anxiety Status: Acute (4) Closed intertrochanteric fracture of right femur: Qualifiers: Encounter type: subsequent encounter Fracture alignment: nondisplaced Fracture healing: with routine healing Qualified Code(s): S72.144D - Nondisplaced intertrochanteric fracture of right femur, subsequent encounter for closed fracture with routine healing Code(s): S72.141A - Displaced intertrochanteric fracture of right femur, initial encounter for closed fracture Status: Acute Subjective Date/time seen: 02/23/25 14:12 Interval history: Continues on morphine drip at 1 mg/hr. Son reports that she is getting restless at times, but he does not want her to have ativan. She is unresponsive. Does get agitated with care. Exam Const: General: patient obtunded Resp: Effort & Inspection: normal respiratory effort Urinary Catheter: Urinary Catheter: patent and draining, urine cloudy and urine pink Skin: General skin exam: normal color Objective Data Vital Signs Vital Signs: Vital Signs - 24 hr 02/22/25 20:00 02/22/25 22:09 02/23/25 08:00 Temperature 36.1 C L Pulse Rate 105 H Respiratory Rate 19 Blood Pressure 185/84 H Pulse Oximetry 92 Oxygen Delivery Room Air Room Air 02/23/25 10:40 Temperature 37.6 C H Pulse Rate 101 H Respiratory Rate 16 Blood Pressure 145/82 H Pulse Oximetry 90 Oxygen Delivery Intake/Output Intake/Output: Intake & Output 02/20/25 02/21/25 02/22/25 02/23/25 23:59 23:59 23:59 23:59 Intake Total 48.7 49.4 46.5 0 Output Total 600 700 500 200 Balance -551.3 -650.6 -453.5 -200 Meds/Results Medications: Active Medications Generic Name Dose Route Start Last Admin Trade Name Freq PRN Reason Stop Dose Admin Artificial Tears 0 drop 02/19/25 15:47 Artificial Tears Ophth Soln 15 Ml Bottle EACH EYE Q8H PRN Dry Eye(s) Bisacodyl 10 mg 02/19/25 15:47 Bisacodyl 10 Mg Suppository RECTAL QAM PRN Constipation Glycopyrrolate 0.1 mg 02/19/25 15:46 Glycopyrrolate Inj (*Sp) 0.2 Mg/Ml Vial IV PUSH Q4H PRN Secretions Haloperidol Lactate 5 mg 02/19/25 15:45 02/19/25 16:36 Haloperidol Lactate 5 Mg/Ml Vial IM 5 mg Q8H PRN Administration Agitation Morphine Sulfate 50 mg in 100 mls @ 2 mls/hr 02/19/25 16:15 02/22/25 16:38 IV CONT 1 mg/hr .Q24H JOSÉ 2 mls/hr Administration 1 MG/HR Lorazepam 1 mg 02/19/25 15:45 02/21/25 11:05 Lorazepam Inj (*Crx) 2 Mg/Ml Vial IV PUSH 1 mg Q4H PRN Administration restlessness Morphine Sulfate 2 mg 02/19/25 15:44 02/22/25 08:42 Morphine Sulfate (*Crx) 2 Mg/Ml Inj IV PUSH 2 mg Q2H PRN Administration Pain/Dyspnea Prochlorperazine Edisylate 10 mg 02/19/25 15:46 Prochlorperazine Edisylate 10 Mg/2 Ml Vial IV PUSH Q6H PRN Nausea And Vomiting
[2025-02-23] MEDS: MORPHINE 50 MG/NS 100ML (*CRX) 50 MG/100 ML BAG IV CONT (17:06)
--- NOTE | 2025-02-23 18:54 | PC.NURSE ---
On 02/23/25, the PICTURE ENGRAVER, Jayashree Shabazz, provided care and completed [facility] documentation on this patient. I have reviewed the PICTURE ENGRAVER's documentation and agree with the findings.
[2025-02-23 20:00] VITALS: O2SAT 92
[2025-02-23 21:40] VITALS: BP 171/80; PULSE 115; RESP 23; TEMP 37.3; O2SAT 92
[2025-02-24 09:20] VITALS: BP 165/89; PULSE 119; RESP 14; TEMP 38.4; O2SAT 90
[2025-02-24] MEDS: MORPHINE 50 MG/NS 100ML (*CRX) 50 MG/100 ML BAG IV CONT (16:51)
--- NOTE | 2025-02-24 19:22 | P.PNIM_ITS ---
Progress Note: A&P Assessment and Plan (1) Hospice care: Code(s): Z51.5 - Encounter for palliative care Status: Acute Assessment and Plan: * Meet inpatient hospice criteria due to require continues IV morphine at 1 milligram/hour for control of pain and related agitation * P.r.n. palliative regimen with haloperidol, lorazepam, prochlorperazine, glycopyrrolate, natural tears, and Dulcolax ordered * 02/19/2025 discussed care prognosis with sister at bedside * 02/20/2025 no PO intake, now unresponsive, BP trending down to 90's systolic, clearly declining * 02/21/2025 no PO intake, required additional prn meds x 2 today with bp increased likely due to pain and agitation. Discussed care and prognosis with spouse at bedside. * 02/22/2025 no PO intake. Continues to require morphine infusion for control of pain. 02/24/2025 Febrile. Longer apneas. Unresponsive. Declining rapidly. Discussed with family at bedside. (2) Delirium due to another medical condition: Code(s): F05 - Delirium due to known physiological condition Status: Acute (3) Dementia: Qualifiers: Dementia type: Alzheimer's Alzheimer's disease onset: other onset Dementia severity: severe Dementia behavioral or psychological symptom: with agitation Qualified Code(s): G30.8 - Other Alzheimer's disease; F02.C11 - Dementia in other diseases classified elsewhere, severe, with agitation Code(s): F03.90 - Unspecified dementia, unspecified severity, without behavioral disturbance, psychotic disturbance, mood disturbance, and anxiety Status: Acute (4) Closed intertrochanteric fracture of right femur: Qualifiers: Encounter type: subsequent encounter Fracture alignment: nondisplaced Fracture healing: with routine healing Qualified Code(s): S72.144D - Nondisplaced intertrochanteric fracture of right femur, subsequent encounter for closed fracture with routine healing Code(s): S72.141A - Displaced intertrochanteric fracture of right femur, initial encounter for closed fracture Status: Acute Subjective Date/time seen: 02/24/25 19:22 Review of Systems Review of Systems: ROS unobtainable: Yes unobtainable due to medical condition Exam Narrative: HEENT: Pharyngeal mucosa pink and intact NECK: No JVD CHEST: Slight wheezes. Apneas. HEART: NL S1/S2, regular, no murmur ABDOMEN: BS+, soft, nontender, no mass, no bruits EXTREMITIES: No cyanosis, edema, or clubbing NEUROLOGIC: CN intact and symmetric to inspection MUSCULOSKELETAL: No deformity to visual inspection PSYCH: Unresponsive to verbal or tactile stimuli Objective Data Vital Signs Vital Signs: Vital Signs - 24 hr 02/23/25 20:00 02/23/25 21:40 02/24/25 08:00 Temperature 99.1 F Pulse Rate 115 H Respiratory Rate 23 H Blood Pressure 171/80 H Pulse Oximetry 92 92 Oxygen Delivery Room Air Room Air 02/24/25 09:20 Temperature 101.1 F H Pulse Rate 119 H Respiratory Rate 14 Blood Pressure 165/89 H Pulse Oximetry 90 Oxygen Delivery Intake/Output Intake/Output: Intake & Output 02/21/25 02/22/25 02/23/25 02/24/25 23:59 23:59 23:59 23:59 Intake Total 49.4 46.5 48.9 47.5 Output Total 700 500 400 550 Balance -650.6 -453.5 -351.1 -502.5 Meds/Results Medications: Active Medications Generic Name Dose Route Start Last Admin Trade Name Freq PRN Reason Stop Dose Admin Acetaminophen 650 mg 02/24/25 13:50 Acetaminophen 650 Mg Suppository RECTAL Q4H PRN Mild Pain (1-3) or Fever Artificial Tears 0 drop 02/19/25 15:47 Artificial Tears Ophth Soln 15 Ml Bottle EACH EYE Q8H PRN Dry Eye(s) Bisacodyl 10 mg 02/19/25 15:47 Bisacodyl 10 Mg Suppository RECTAL QAM PRN Constipation Glycopyrrolate 0.1 mg 02/19/25 15:46 Glycopyrrolate Inj (*Sp) 0.2 Mg/Ml Vial IV PUSH Q4H PRN Secretions Haloperidol Lactate 5 mg 02/19/25 15:45 02/19/25 16:36 Haloperidol Lactate 5 Mg/Ml Vial IM 5 mg Q8H PRN Administration Agitation Morphine Sulfate 50 mg in 100 mls @ 2 mls/hr 02/19/25 16:15 02/24/25 16:51 IV CONT 1 mg/hr .Q24H JOSÉ 2 mls/hr Administration 1 MG/HR Lorazepam 1 mg 02/19/25 15:45 02/23/25 14:10 Lorazepam Inj (*Crx) 2 Mg/Ml Vial IV PUSH 1 mg Q4H PRN Administration restlessness Morphine Sulfate 2 mg 02/19/25 15:44 02/22/25 08:42 Morphine Sulfate (*Crx) 2 Mg/Ml Inj IV PUSH 2 mg Q2H PRN Administration Pain/Dyspnea Prochlorperazine Edisylate 10 mg 02/19/25 15:46 Prochlorperazine Edisylate 10 Mg/2 Ml Vial IV PUSH Q6H PRN Nausea And Vomiting
[2025-02-24 21:00] VITALS: BP 167/89; PULSE 121; RESP 20; TEMP 37.2; O2SAT 92
[2025-02-25] MEDS: LORazepam INJ (*CRX) 2 MG/ML VIAL 1 MG IV PUSH (11:11)
--- NOTE | 2025-02-25 14:36 | PC.NURSE ---
Patient 1125.
--- NOTE | 2025-02-25 16:58 | PM.DDS ---
Discharge Summary Date and Time Date of : 02/25/25 Time of : 11:25 Provider Pronounced By: 2 RNs Name of First RN That Pronounced: Kalyn Car Name of Second RN That Pronounced: Nely Brody Probable Cause of Probable Cause of : Delirium due to dementia with underlying intertrochanteric fracture of right femur Summary Hospital Course: Admitted to inpatient hospice service for symptom management. Medications were titrated to comfort. Mrs. Hassan peacefully. Additional Data Confirmation of as documented by pronouncing clinician: Pupillary Reflex, Palpable Pulses, Response to Stimuli, Heart Tones and Breath Sounds Name of Provider Notified: Shirley Time Provider Notified: 11:30 Pressure Control Supervisor Notified: Yes Date [facility] Notified of : 02/25/25 Time [facility] Notified of : 11:45
== END 2025-02-25 11:25 | disposition expired | DRG 951 ==
PROVIDERS: Admitting Provider Internal Medicine; PCP Internal Medicine; Visit Provider Internal Medicine
DX: Z51.5 Encounter for palliative care (principal); F02.C11 Dementia in other diseases classified elsewhere, severe, with agitation; R32 Unspecified urinary incontinence; R15.9 Full incontinence of feces; Z85.038 Personal history of other malignant neoplasm of large intestine; Z87.891 Personal history of nicotine dependence; Z66 Do not resuscitate; G30.8 Other Alzheimer's disease; S72.144D Nondisplaced intertrochanteric fracture of right femur, subsequent encounter for closed fracture with routine healing
CPT/HCPCS: A9270; J1630; J2060; J2270